=== PATIENT | male | born 1975 | race African-American/Black ===

== ENCOUNTER 2021-03-12 19:44 | Inpatient (IN) | payer MEDICAID, OTHER, SELFPAY ==
[~2021-03-12] VITALS: Ht 172.7 cm; Wt 72.1 kg
[2021-03-12 20:22] LABS: HEMATOCRIT 41.8 % (42.0-52.0); HEMOGLOBIN 13.4 g/dl (13.5-17.5); MEAN CORPUSCULAR HEMOGLOBIN 30.1 pg (27.0-33.0); MEAN CORPUSCULAR HGB CONC 32.1 g/dl (32.0-36.5); MEAN CORPUSCULAR VOLUME 93.9 fl (80.0-96.0); PLATELET COUNT, AUTOMATED 428 10^3/uL (150-450); RED BLOOD COUNT 4.45 10^6/uL (4.30-6.10); WHITE BLOOD COUNT 13.5 10^3/uL (4.0-10.0)
[2021-03-12 20:38] LABS: AMPHETAMINES LEVEL URINE NEGATIVE (NEGATIVE); BARBITURATES URINE NEGATIVE (NEGATIVE); BENZODIAZEPINES URINE NEGATIVE (NEGATIVE); CANNABINOIDS URINE POSITIVE (NEGATIVE); COCAINE METABOLITE URINE NEGATIVE (NEGATIVE); METHADONE URINE NEGATIVE (NEGATIVE); OPIATES URINE NEGATIVE (NEGATIVE); PHENCYCLIDINE URINE NEGATIVE (NEGATIVE)
[2021-03-12 21:11] LABS: ACETAMINOPHEN LEVEL < 2.0 UG/ML (10.0-30.0); ALBUMIN 3.4 GM/DL (3.2-5.2); ALT/SGPT 65 U/L (12-78); BILIRUBIN,DIRECT < 0.1 MG/DL (0.0-0.2); BILIRUBIN,TOTAL 0.2 MG/DL (0.2-1.0); BLOOD UREA NITROGEN 19 MG/DL (7-18); CALCIUM LEVEL 8.6 MG/DL (8.5-10.1); CARBON DIOXIDE LEVEL 28 MEQ/L (21-32); CHLORIDE LEVEL 107 MEQ/L (98-107); CREATININE FOR GFR 1.08 MG/DL (0.70-1.30); ETHYL ALCOHOL (ETHANOL) < 0.003 % (0.000-0.010); GLOMERULAR FILTRATION RATE > 60.0 (>60); GLUCOSE, FASTING 97 MG/DL (70-100); POTASSIUM SERUM 4.3 MEQ/L (3.5-5.1); SALICYLATE LEVEL 1.9 MG/DL (5.0-30.0); SODIUM LEVEL 139 MEQ/L (136-145); TOTAL PROTEIN 7.2 GM/DL (6.4-8.2)
[2021-03-13] MEDS ORDERED: diphenhydrAMINE 50MG CAP PO ONE
[2021-03-13] MEDS ORDERED: HOME MED LIST COMPLETE! XX SCH (00:15)
[2021-03-13] MEDS ORDERED: LORazepam 1 MG TAB PO STA (01:02)
[2021-03-13] MEDS ORDERED: NICOTINE 21MG/24HR 1 EA TRANSDERMAL TD PRN (06:55)
[2021-03-13] MEDS ORDERED: MAALOX 30 ML SUSP *UDC PO PRN (06:55)
[2021-03-13] MEDS ORDERED: traZODone 50 MG TAB PO PRN (06:55)
[2021-03-13] MEDS ORDERED: MOM 30ML SUSPENSION UDC PO PRN (06:55)
[2021-03-13 09:05] LABS: RSV AMPLIFICATION NEGATIVE (NEGATIVE)
[2021-03-13] MEDS ORDERED: haloperidoL 1 MG TAB PO PRN (10:45)
[2021-03-13] MEDS ORDERED: LORazepam 1 MG TAB PO PRN (10:45)
[2021-03-13 15:14] LABS: HEMOGLOBIN 13.2 g/dl (13.5-17.5); MEAN CORPUSCULAR HEMOGLOBIN 30.3 pg (27.0-33.0); MEAN CORPUSCULAR HGB CONC 32.2 g/dl (32.0-36.5); MEAN CORPUSCULAR VOLUME 94.3 fl (80.0-96.0); PLATELET COUNT, AUTOMATED 392 10^3/uL (150-450); RED BLOOD COUNT 4.35 10^6/uL (4.30-6.10); WHITE BLOOD COUNT 9.2 10^3/uL (4.0-10.0)
[2021-03-13 15:36] LABS: INR 1.03; PARTIAL THROMBOPLASTIN TIME 29.2 SECONDS (25.9-37.0); PROTHROMBIN TIME 13.9 SECONDS (12.7-14.5)
[2021-03-13 16:17] VITALS: BP 160/84
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
[2021-03-13] MEDS ORDERED: diphenhydrAMINE 25MG CAP PO ONE (17:00)
[2021-03-13] MEDS: diphenhydrAMINE 25MG CAP PO PRN (23:25)
[2021-03-13] MEDS: haloperidoL 1 MG TAB PO SCH (23:25)
[2021-03-14] MEDS: ACETAMINOPHEN TAB 650MG DOSE (2X325MG) PO PRN ×2 (00:35→16:19)
[2021-03-14 08:02] LABS: HEMATOCRIT 42.9 % (42.0-52.0); HEMOGLOBIN 13.8 g/dl (13.5-17.5); MEAN CORPUSCULAR HEMOGLOBIN 29.9 pg (27.0-33.0); MEAN CORPUSCULAR HGB CONC 32.2 g/dl (32.0-36.5); MEAN CORPUSCULAR VOLUME 93.1 fl (80.0-96.0); PLATELET COUNT, AUTOMATED 437 10^3/uL (150-450); RED BLOOD COUNT 4.61 10^6/uL (4.30-6.10); WHITE BLOOD COUNT 9.5 10^3/uL (4.0-10.0)
[2021-03-14] MEDS ORDERED: diphenhydrAMINE 50MG CAP PO PRN (14:05)
[2021-03-14 16:24] VITALS: BP 164/91
[2021-03-14] MEDS ORDERED: LORazepam 2 MG/ML VIAL IM STA ×3 (19:34→21:06)
[2021-03-14] MEDS ORDERED: HALOPERIDOL 5MG/ML VIAL (J1630 PER 1) IM STA (19:34)
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
[2021-03-14] MEDS: haloperidoL 1 MG TAB PO SCH (21:00)
[2021-03-14 21:45] VITALS: BP 150/70
[2021-03-14 22:00] VITALS: BP 150/75
--- NOTE | 2021-03-15 09:26 | MHHPE ---
[facility] HISTORY AND PHYSICAL DATE OF ADMISSION: 03/13/2021 VITAL SIGNS: Blood pressure 160/84, pulse 98, temperature 98.4. The patient was seen by video initially, I gathered history in the presence of staff and then was seen [id number] in the inpatient psychiatry unit. CHIEF COMPLAINT: Has been agitated. SUBJECTIVE: He is 45 years old. He is unable to provide a coherent history as he is quite tangential, in fact disorganized in his thoughts and has a hard time sticking to the topic at hand. Most of the history is obtained from the notes from the emergency room. He was brought to the emergency room by the police. He sadly has been off medicines, unclear which ones also how long. Note also says he was going to kill his brother and then the deputies, he was quite religiously preoccupied. Says there is no difficulty that he has with his emotions and that he does not have a psychiatric illness at least alludes to that and apparently has a history of schizophrenia. His brother had called the police as he had noted the patient was exhibiting increasing psychotic symptoms, auditory hallucinations, verbally aggressively, possibly visual hallucinations as well. The patient had apparently moved in with his brother three months ago, has had previous hospitalizations in [place] and was discharged from the hospital shortly before moving into the [facility]. Had been decompensating for the last couple of weeks and that he had received intramuscular Haldol every month, but has had no medicines since coming to this area and he was becoming increasingly grandiose, claiming he was God and that he saw his mother and his brother in his apartment and she was not there, was also noted to be talking to himself and not sleeping. Also made statements eluding to killing his brother. Apparently, he does well when he is taking his medicines. In the emergency room, he required frequent redirection. The patient indicates that he has been doing okay and that he uses Benadryl 75 mg at night. Suggests it helps him, but is vague on how it does that, but later suggests it may help calm things down and helps with sleep. He has been noted to be intrusive in the unit as well. PAST PSYCHIATRIC HISTORY: As indicated above. SUBSTANCE ABUSE HISTORY: Unclear, Toxicology was positive for cannabis. MEDICAL HISTORY: None as such. It should be noted under medical history, however, that he has been seen by a hospitalist and the patient had complained about blood per rectum and a rectal examination was deferred. A complete blood count will be repeated. There is no decrease in hemoglobin. SOCIAL HISTORY: As indicated above. He has been staying recently with his brother. MENTAL STATUS EXAMINATION: He is with fair hygiene, has long hair and cooperative, no agitation when I saw him, no psychomotor retardation and displays disorganized speech, tends to ramble with possible loose associations, there is no tolerance, but the statements are not in keeping with what is being talked about. Denies suicidal thoughts or intents. Denies homicidal ideas or intents. Guarded on certain matters and appears deluded, paranoid, no fluctuation of consciousness, intellect average. He is alert, oriented to time, place and person. Judgment and insight are quite compromised. ASSESSMENT: 1. Schizophrenia. 2. Rule out schizoaffective disorder, bipolar type. Recent history of not adhering to recommendations. The patient has acute psychosis with disordered thoughts, delusions of persecution, very poor judgment and insight. PLAN: He is admitted to inpatient psychiatric unit, placed on relevant precautions. Look at obtaining further collateral information and possible old records. Will suggest that he be given Benadryl at 75 mg at night and 25 mg to 50 mg in the daytime as needed for anxiety, and this is the only medication that he accepts at present, but we offered an antipsychotic as well, but he declined it at present and will look at placing him on Haldol, will schedule as well, but may need to look at using an atypical antipsychotic and consider using a long acting injectable as one of the atypical antipsychotics, rather than Haldol which he has used in the past. This may be decided in view of the previous responses, however, to be intramuscular Haldol. Receive medicine consult as indicated and they will continue monitoring for blood in stools and help is appreciated. He will be discharged to follow up once he is stable. I would anticipate a 5 to 7 day stay. The assessment took 45 minutes. KAREN
[2021-03-15] MEDS: diphenhydrAMINE 50MG CAP PO SCH ×2 (10:24→16:16)
[2021-03-15] MEDS ORDERED: OLANZapine 5 MG TAB PO PRN (10:50)
[2021-03-15 11:28] LABS: HEPATITIS B CORE ANTIBODY IGM NEGATIVE (NEGATIVE); HEPATITIS B SURFACE ANTIGEN NEGATIVE (NEGATIVE); HEPATITIS C VIRUS ABY INDEX < 0.0 INDEX (<0.8); HIV 1&2 SCREEN CENTAUR NEGATIVE (NEGATIVE)
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
--- NOTE | 2021-03-15 11:56 | MHIPNPDOC ---
[facility] Progress Note Progress Note DATE OF SERVICE: 03/15/21 HISTORY: Patient is a 45-year-old -[place] man with a history of schizophrenia who presents to the ED with police due to acute disorganization in context of noncompliance with medications and outpatient appointments. Brother called 911 and he was brought in to the hospital. Interval: On interview patient is quite paranoid, states he is being monitored 24/ on cameras, has bizarre delusions of computers being on his face, he is tangential and states it is forensics in my blood, all these optics answers are disorganized I do not have mental health and I know that olanzapine helps me, I can prove what is going on using technology. Was seen in the social milieu pointing out signs that are not up-to-date reportedly, despite indications noted that they were. Also was asking to see his files immediately and that the medications are put in as he does not believe they are kept anywhere in the computer and will be forgotten. Patient is reassured of safe environment, agrees to start olanzapine 10 mg nightly, and have as needed olanzapine for anxiety, agitation or psychotic symptoms which are worsening. Has to have Benadryl as he reports this is helped him in the past and does not have allergy, 50 mg twice daily for anxiety. VITAL SIGNS: See below. NEW TEST RESULTS: CBC 1017 unremarkable, U tox positive for cannabinoids CURRENT MEDICATIONS: See below. MENTAL STATUS EXAMINATION: Patient is a 45-year old -[place] male, who is in no acute distress, has dreadlocks, balding, appears older than stated age, intense eye contact and a ppears to be responding to internal stimuli, somewhat disheveled Speech: Is disordered Language skills are poor. Thought processes including: Disorganized, internally preoccupied. Thought content: Denies suicidal ideation, intent or plan. Denies homicidal ideation, intent or plan, preoccupied with computers and technology proving that he has no mental disorder. Abstract reasoning, and computation: Poor. Description of associations: Poor. Description of abnormal or psychotic thoughts: Bizarre delusions, paranoia, denies hallucinations, but appears internally preoccupied Judgment: Poor. Insight: Poor. Orientation: To person and place. Recent and remote memory: Poor. Attention span and concentration: Poor. Language: Luxembourgish. Fund of knowledge: below average based on interview Mood: "It's all recorded in the camera" affect: Mildly anxious, disorganized, internally preoccupied, grossly psychotic, inappropriate DIAGNOSES: 1. Schizophrenia per history 2. Cannabis use disorder per history 3. Tobacco use disorder per history, supplemented with nicotine patch ASSESSMENT: Patient is grossly and pleasantly disorganized, nonaggressive, was offered a dose of olanzapine once and refused, agreeable to taking olanzapine at night due to concern of oversedation daytime, despite psychotic symptoms. Needs extended stay for acute stabilization of psychosis. Aims scoring is 0 based on interview. Does report that Haldol in the past has caused tight muscles and is poorly tolerated. MANAGEMENT PLAN: Start olanzapine 10 mg nightly, DC Haldol 3 mg nightly, refusing, has as needed olanzapine for agitation, moderate to severe anxiety, psychotic symptoms, refuses Haldol TIME SPENT: 25 minutes. Vital Signs Vital Signs Date Time Temp Pulse Resp B/P (MAP) Pulse Ox O2 Delivery O2 Flow Rate FiO2 03/14/21 22:00 14 150/75 99 Room Air 03/14/21 16:24 97.5 99 Laboratory Data 24H Labs Laboratory Tests 2 03/15/21 08:31: Hepatitis A IgM Antibody NEGATIVE, Hepatitis B Surface Antigen NEGATIVE, Hepatitis B Core IgM Antibody NEGATIVE, Hepatitis C Antibody Index < 0.0, HIV Antigen/Antibody Combo Qual NEGATIVE Current Medications Current Medications Medications (Trade) Dose Ordered Sig/Selene Route PRN Reason Start Time Stop Time Status Last Admin Dose Admin Acetaminophen (Tylenol Tab) 650 mg Q6HP PRN PO HEADACHE or MILD DISCOMFORT 03/13/21 06:55 03/14/21 16:19 Al Hydrox/Mg Hydrox/Simethicone (Mylanta) 30 ml Q4HP PRN PO HEARTBURN/INDIGESTION 03/13/21 06:55 Diphenhydramine HCl (Benadryl) 50 mg BID@0900,1600 PO 03/15/21 09:00 03/15/21 10:24 Diphenhydramine HCl (Benadryl) 50 mg DAILYPRN PRN PO ANXIETY 03/14/21 14:05 03/15/21 10:12 DC 03/14/21 14:47 Diphenhydramine HCl (Benadryl) 75 mg QHSP PRN PO ANXIETY 03/13/21 18:55 03/13/21 23:25 Haloperidol (Haldol) 2 mg Q4HP PRN PO ANXIETY/AGITATION 03/13/21 06:55 03/13/21 10:45 DC Haloperidol (Haldol) 3 mg Q4HP PRN PO ANXIETY/AGITATION 03/13/21 10:45 Cancel Haloperidol (Haldol) 3 mg QHS PO 03/13/21 21:00 Haloperidol (Haldol) 5 mg STAT STAT IM 03/14/21 19:34 03/14/21 19:41 DC 03/14/21 19:54 Home Med (Home Med List Complete!) ASDIRECTED XX 03/13/21 00:15 03/13/21 00:27 DC Lorazepam (Ativan) 1 mg Q4HP PRN PO ANXIETY/Agitation 03/13/21 10:45 Lorazepam (Ativan) 1 mg STAT STAT IM 03/14/21 19:34 03/14/21 19:41 DC 03/14/21 19:54 Lorazepam (Ativan) 1 mg STAT STAT IM 03/14/21 19:34 03/14/21 19:41 DC Lorazepam (Ativan) 1 mg STAT STAT IM 03/14/21 21:06 03/14/21 21:07 DC 03/14/21 21:14 Lorazepam (Ativan) 1 mg STAT STAT PO 03/13/21 01:02 03/13/21 01:03 DC 03/13/21 01:02 Magnesium Hydroxide (Milk Of Magnesia) 30 ml DAILYPRN PRN PO CONSTIPATION 03/13/21 06:55 Nicotine (Nicoderm Cq 21mg) 1 patch DAILY PRN TD nicotine withdrawal 03/13/21 06:55 Olanzapine (ZyPREXA) 5 mg Q4HP PRN PO AGITATION 03/15/21 10:50 Olanzapine (ZyPREXA) 10 mg QHS PO 03/15/21 21:00 Trazodone HCl (Desyrel) 50 mg QHSP PRN PO INSOMNIA 03/13/21 06:55 Allergies Coded Allergies: benztropine (Verified Allergy, Unknown, unk, 03/12/21) risperidone (Verified Allergy, Unknown, unk, 03/12/21) LUCY FLOWER MD Mar 15, 2021 11:56
--- NOTE | 2021-03-15 16:59 | MHIPN ---
[facility] PROGRESS NOTE DATE: 03/14/2021 VITAL SIGNS: Blood pressure 164/91, pulse 99, temperature 97.5. This is a video assessment. She is in the inpatient psychiatry unit, being seen in the presence of staff. I am at home. CHIEF COMPLAINT: Says feels good. SUBJECTIVE: Seen for followup. Indicates feels good. Then suggests that he is here only for the weekend and makes statements which are not related to the topic at hand and becomes quite tangential in his speech. He does say he slept. Took Benadryl. Is focused on daytime Benadryl to ease his anxiety. Gets upset when mention is made of his using Haldol for treatment, intramuscular, and denies that. Also declines us speaking with his brother. MENTAL STATUS EXAMINATION: Cooperative, neat but easily irritated. Displays mild agitation. No psychomotor retardation. Has thought disorder. Disorganized and tangential speech. Mildly labile affect. Delusions. Cognition grossly intact. Judgment and insight are compromised. ASSESSMENT: Schizophrenia. PLAN: Continue current care. Attempt at obtaining collateral information, but I would suggest he is given Benadryl, including daytime at 50 mg once a day as needed for anxiety. This is in addition to the 75 mg at night, and should he feel less anxious, may be more amenable to persuasion in terms of engaging in treatment, including using an antipsychotic. Would suggest obtaining old records with his permission. This may take awhile. Further recommendations will be made depending on the clinical picture when he sees the assigned clinicians tomorrow. Meanwhile, he is to be encouraged to participate as tolerated in the activities in the unit.
[2021-03-15 17:44] VITALS: BP 176/100
[2021-03-15] MEDS: diphenhydrAMINE 25MG CAP PO PRN (20:41)
[2021-03-15] MEDS ORDERED: OLANZapine 10 MG TAB PO SCH (21:00)
[2021-03-15] MEDS: ACETAMINOPHEN TAB 650MG DOSE (2X325MG) PO PRN (21:27)
[2021-03-16 07:04] VITALS: BP 136/97
[2021-03-16] MEDS: diphenhydrAMINE 50MG CAP PO SCH ×2 (07:55→15:48)
--- NOTE | 2021-03-16 13:06 | MHIPNPDOC ---
[facility] Progress Note Progress Note DATE OF SERVICE: 03/16/21 HISTORY: Patient is a 45-year-old -[place] man with a history of schizophrenia who presents to the ED with police due to acute disorganization in context of noncompliance with medications and outpatient appointments. Brother called 911 and he was brought in to the hospital. Interval: Patient was seen today, has been going to some groups. Reports there are conspiracies against him that he needs to be released and that his magnetic energy field around his head was normal and that he needs to wear a hat to stabilize this. States he is already received a full copy of his medications and that he is going to court because he never authorized admission or his medications, discussed several treatment options with him including alternatives which he refused stating he wants to continue with olanzapine. Has been taking medications per chart review. VITAL SIGNS: See below. NEW TEST RESULTS: None CURRENT MEDICATIONS: See below. MENTAL STATUS EXAMINATION: Patient is a 45-year old -[place] male, who is in no acute distress, has dreadlocks, balding, appears older than stated age, intense eye contact and appears to be responding to internal stimuli, somewhat disheveled, walking in the hallways. Speech: Is disordered Language skills are poor. Thought processes including: Disorganized, internally preoccupied, paranoid. Thought content: Denies suicidal ideation, intent or plan. Denies homicidal ideation, intent or plan, preoccupied with computers and technology proving that he has no mental disorder. Abstract reasoning, and computation: Poor. Desc ription of associations: Poor. Description of abnormal or psychotic thoughts: Bizarre delusions, paranoia, denies hallucinations, but continues to be internally preoccupied Judgment: Poor. Insight: Poor. Orientation: To person and place. Recent and remote memory: Poor. Attention span and concentration: Poor. Language: Hebrew. Fund of knowledge: below average based on interview Mood: "Something of nicole" affect: Grossly psychotic, internally preoccupied, disorganized, inappropriate DIAGNOSES: 1. Schizophrenia per history 2. Cannabis use disorder per history 3. Tobacco use disorder per history, supplemented with nicotine patch ASSESSMENT: Patient is grossly and pleasantly disorganized, nonaggressive, was offered a dose of olanzapine once and refused, agreeable to taking olanzapine at night due to concern of oversedation daytime, despite psychotic symptoms. Needs extended stay for acute stabilization of psychosis. Aims scoring is 0 based on interview. Does report that Haldol in the past has caused tight muscles and is poorly tolerated. No EPS symptoms, noted on interview, aims scoring 0. MANAGEMENT PLAN: Increase olanzapine to 20 mg nightly, refusing other medication options including Haldol, mood stabilizers for anxiety and agitation. TIME SPENT: 25 minutes. Vital Signs Vital Signs Date Time Temp Pulse Resp B/P (MAP) Pulse Ox O2 Delivery O2 Flow Rate FiO2 03/16/21 07:04 97.7 101 18 136/97 (110) 98 Room Air Current Medications Current Medications Medications (Trade) Dose Ordered Sig/Selene Route PRN Reason Start Time Stop Time Status Last Admin Dose Admin Acetaminophen (Tylenol Tab) 650 mg Q6HP PRN PO HEADACHE or MILD DISCOMFORT 03/13/21 06:55 03/15/21 21:27 Al Hydrox/Mg Hydrox/Simethicone (Mylanta) 30 ml Q4HP PRN PO HEARTBURN/INDIGESTION 03/13/21 06:55 Amlodipine Besylate (Norvasc) 2.5 mg QHS PO 03/15/21 18:20 Diphenhydramine HCl (Benadryl) 50 mg BID@0900,1600 PO 03/15/21 09:00 03/16/21 07:55 Diphenhydramine HCl (Benadryl) 50 mg DAILYPRN PRN PO ANXIETY 03/14/21 14:05 03/15/21 10:12 DC 03/14/21 14:47 Diphenhydramine HCl (Benadryl) 75 mg QHSP PRN PO ANXIETY 03/13/21 18:55 03/15/21 20:41 Haloperidol (Haldol) 2 mg Q4HP PRN PO ANXIETY/AGITATION 03/13/21 06:55 03/13/21 10:45 DC Haloperidol (Haldol) 3 mg Q4HP PRN PO ANXIETY/AGITATION 03/13/21 10:45 Cancel Haloperidol (Haldol) 3 mg QHS PO 03/13/21 21:00 03/15/21 11:57 DC Haloperidol (Haldol) 5 mg STAT STAT IM 03/14/21 19:34 03/14/21 19:41 DC 03/14/21 19:54 Home Med (Home Med List Complete!) ASDIRECTED XX 03/13/21 00:15 03/13/21 00:27 DC Lorazepam (Ativan) 1 mg Q4HP PRN PO ANXIETY/Agitation 03/13/21 10:45 Lorazepam (Ativan) 1 mg STAT STAT IM 03/14/21 19:34 03/14/21 19:41 DC 03/14/21 19:54 Lorazepam (Ativan) 1 mg STAT STAT IM 03/14/21 19:34 03/14/21 19:41 DC Lorazepam (Ativan) 1 mg STAT STAT IM 03/14/21 21:06 03/14/21 21:07 DC 03/14/21 21:14 Lorazepam (Ativan) 1 mg STAT STAT PO 03/13/21 01:02 03/13/21 01:03 DC 03/13/21 01:02 Magnesium Hydroxide (Milk Of Magnesia) 30 ml DAILYPRN PRN PO CONSTIPATION 03/13/21 06:55 Nicotine (Nicoderm Cq 21mg) 1 patch DAILY PRN TD nicotine withdrawal 03/13/21 06:55 Olanzapine (ZyPREXA) 5 mg Q4HP PRN PO AGITATION 03/15/21 10:50 Olanzapine (ZyPREXA) 10 mg QHS PO 03/15/21 21:00 03/15/21 20:41 Trazodone HCl (Desyrel) 50 mg QHSP PRN PO INSOMNIA 03/13/21 06:55 Allergies Coded Allergies: benztropine (Verified Allergy, Unknown, unk, 03/12/21) risperidone (Verified Allergy, Unknown, unk, 03/12/21) LUCY FLOWER MD Mar 16, 2021 13:06
[2021-03-16] MEDS: diphenhydrAMINE 25MG CAP PO PRN (20:36)
[2021-03-16] MEDS: OLANZapine 10 MG TAB PO SCH ×2 (20:40→21:31)
[2021-03-17] MEDS: diphenhydrAMINE 50MG CAP PO SCH ×2 (08:25→15:26)
[2021-03-17 11:47] LABS: HEMATOCRIT 43.8 % (42.0-52.0); MEAN CORPUSCULAR HEMOGLOBIN 30.4 pg (27.0-33.0); PLATELET COUNT, AUTOMATED 468 10^3/uL (150-450); RED BLOOD COUNT 4.61 10^6/uL (4.30-6.10); WHITE BLOOD COUNT 11.8 10^3/uL (4.0-10.0)
[2021-03-17 12:06] LABS: BLOOD UREA NITROGEN 10 MG/DL (7-18); CALCIUM LEVEL 9.3 MG/DL (8.5-10.1); CARBON DIOXIDE LEVEL 30 MEQ/L (21-32); CHLORIDE LEVEL 106 MEQ/L (98-107); CREATININE FOR GFR 1.09 MG/DL (0.70-1.30); GLOMERULAR FILTRATION RATE > 60.0 (>60); GLUCOSE, FASTING 89 MG/DL (70-100); POTASSIUM SERUM 5.1 MEQ/L (3.5-5.1); SODIUM LEVEL 139 MEQ/L (136-145)
--- NOTE | 2021-03-17 14:09 | MHIPNPDOC ---
[facility] Progress Note Progress Note DATE OF SERVICE: 03/17/21 HISTORY: Patient is a 45-year-old -[place]ian man with a history of schizophrenia who presents to the ED with police due to acute disorganization in context of noncompliance with medications and outpatient appointments. Brother called 911 and he was brought in to the hospital. Interval: Patient was seen today, has been going to some groups. Continues to have bizarre delusions of ECT machines and government projects taking over, shows me how he is technology all around his head. Was frustrated that his olanzapine dose was increased, stating he does not need it despite bizarre disorganized behavior. Reports she will continue the medication and denies side effects, no acute physical complaints, so far agreeable to testing by medical team for possible blood in the stool. VITAL SIGNS: See below. NEW TEST RESULTS: See below, elevated white count and platelet count of 400s, being followed by hospitalist team CURRENT MEDICATIONS: See below. MENTAL STATUS EXAMINATION: Patient is a 45-year old -[place]ian male, who is in no acute distress, has dreadlocks, balding, appears older than stated age, intense eye contact and appears to be responding to internal stimuli, somewhat disheveled, walking in the hallways. Speech: Is disordered Language skills are poor. Thought processes including: Disorganized, internally preoccupied, paranoid. Thought content: Denies suicidal ideation, intent or plan. Denies homicidal ideation, intent or plan, preoccupied with technology being used by the government to control him. abstract reasoning, and computation: Poor. Description of associations: Poor. Description of abnormal or psychotic thoughts: Bizarre delusions, paranoia, appears to be seeing auditory visual hallucination, but continues to be internally preoccupied Judgment: Poor. Insight: Poor. Orientation: To person and place. Recent and remote memory: Poor. Attention span and concentration: Poor. Language: Yoruba. Fund of knowledge: below average based on interview Mood: "You know how it is" affect: Grossly psychotic, delusional, internally preoccupied, inappropriate DIAGNOSES: 1. Schizophrenia per history 2. Cannabis use disorder per history 3. Tobacco use disorder per history, supplemented with nicotine patch ASSESSMENT: Patient continues to be grossly psychotic and disorganized, is talking to himself in his room and has bizarre delusions of implants and government involved ECT machines, states people are using his blood to control him. Patient requires consistent redirection due to leaving isolation room in context of possible covert exposure. His auditory visual hallucinations. Continues to require inpatient mission due to need for acute stabilization of psychotic symptoms. MANAGEMENT PLAN: Continue olanzapine to 20 mg nightly, will assess if symptoms improve, if not we will look at adjunctive medications,refusing other medication options including Haldol, mood stabilizers for anxiety and agitation. Nursing noticed blood in stool when going to the bathroom, hospital team aware and ordered for occult blood sample, BMP, CBC. Patient placed on contact precautio ns due to possible risk of covert exposure, this is despite a negative test on admission TIME SPENT: 20 minutes. Vital Signs Vital Signs Date Time Temp Pulse Resp B/P (MAP) Pulse Ox O2 Delivery O2 Flow Rate FiO2 03/16/21 07:04 97.7 101 18 136/97 (110) 98 Room Air Laboratory Data 24H Labs Laboratory Tests 2 03/17/21 11:22: Reticulocyte # (auto) 72.4, Nucleated Red Blood Cells % (auto) 0.0, Percent Reticulocyte Count 1.6H, Reticulocyte Hemoglobin Equivalent 33.3, Anion Gap 3L, Glomerular Filtration Rate > 60.0, Calcium Level 9.3 CBC/BMP Laboratory Tests 03/17/21 11:22 Current Medications Current Medications Medications (Trade) Dose Ordered Sig/Selene Route PRN Reason Start Time Stop Time Status Last Admin Dose Admin Acetaminophen (Tylenol Tab) 650 mg Q6HP PRN PO HEADACHE or MILD DISCOMFORT 03/13/21 06:55 03/15/21 21:27 Al Hydrox/Mg Hydrox/Simethicone (Mylanta) 30 ml Q4HP PRN PO HEARTBURN/INDIGESTION 03/13/21 06:55 Amlodipine Besylate (Norvasc) 2.5 mg QHS PO 03/15/21 18:20 Diphenhydramine HCl (Benadryl) 50 mg BID@0900,1600 PO 03/15/21 09:00 03/17/21 08:25 Diphenhydramine HCl (Benadryl) 50 mg DAILYPRN PRN PO ANXIETY 03/14/21 14:05 03/15/21 10:12 DC 03/14/21 14:47 Diphenhydramine HCl (Benadryl) 75 mg QHSP PRN PO ANXIETY 03/13/21 18:55 03/16/21 20:36 Haloperidol (Haldol) 2 mg Q4HP PRN PO ANXIETY/AGITATION 03/13/21 06:55 03/13/21 10:45 DC Haloperidol (Haldol) 3 mg Q4HP PRN PO ANXIETY/AGITATION 03/13/21 10:45 Cancel Haloperidol (Haldol) 3 mg QHS PO 03/13/21 21:00 03/15/21 11:57 DC Haloperidol (Haldol) 5 mg STAT STAT IM 03/14/21 19:34 03/14/21 19:41 DC 03/14/21 19:54 Home Med (Home Med List Complete!) ASDIRECTED XX 03/13/21 00:15 03/13/21 00:27 DC Lorazepam (Ativan) 1 mg Q4HP PRN PO ANXIETY/Agitation 03/13/21 10:45 Lorazepam (Ativan) 1 mg STAT STAT IM 03/14/21 19:34 03/14/21 19:41 DC 03/14/21 19:54 Lorazepam (Ativan) 1 mg STAT STAT IM 03/14/21 19:34 03/14/21 19:41 DC Lorazepam (Ativan) 1 mg STAT STAT IM 03/14/21 21:06 03/14/21 21:07 DC 03/14/21 21:14 Lorazepam (Ativan) 1 mg STAT STAT PO 03/13/21 01:02 03/13/21 01:03 DC 03/13/21 01:02 Magnesium Hydroxide (Milk Of Magnesia) 30 ml DAILYPRN PRN PO CONSTIPATION 03/13/21 06:55 Nicotine (Nicoderm Cq 21mg) 1 patch DAILY PRN TD nicotine withdrawal 03/13/21 06:55 Olanzapine (ZyPREXA) 5 mg Q4HP PRN PO AGITATION 03/15/21 10:50 Olanzapine (ZyPREXA) 10 mg QHS PO 03/15/21 21:00 03/16/21 13:06 DC 03/15/21 20:41 Olanzapine (ZyPREXA) 20 mg QHS PO 03/16/21 21:00 03/16/21 21:31 Trazodone HCl (Desyrel) 50 mg QHSP PRN PO INSOMNIA 03/13/21 06:55 Allergies Coded Allergies: benztropine (Verified Allergy, Unknown, unk, 03/12/21) risperidone (Verified Allergy, Unknown, unk, 03/12/21) LUCY FLOWER MD Mar 17, 2021 14:09
[2021-03-17] MEDS: diphenhydrAMINE 25MG CAP PO PRN (20:26)
[2021-03-17] MEDS: OLANZapine 10 MG TAB PO SCH (20:26)
--- NOTE | 2021-03-17 20:55 | IPNPDOC ---
Subjective Date Seen The patient was seen on 03/17/21. Subjective Chief Complaint/HPI Mr. Jhaveri is a 45-year-old male who was in the inpatient mental health unit for schizophrenia. We were asked to see the patient again because of bright red blood per rectum. Per nurse, patient had a bowel movement with solid stool and bright red blood. Today we ordered for CBC, which was stable and better than admission. I attempted to see patient. He denied any lightheadedness or dizziness, chest pain, or shortness of breath. He kept telling me that someone had contaminated his food and thought that this was causing the bright red blood per rectum. When I started talking about hemorrhoids, he is very agitated and upset. He told me to get out of the room. He was very verbally aggressive, and at that time, it was not safe to try to attempt a rectal exam. I was not able to perform a physical exam due to patient's refusal. Otherwise, patient is on Covid precautions as he was exposed to person positive for Covid. Objective Physical Examination Other physical findings Patient refused physical exam Assessment /Plan Assessment Mr. Jhaveri is a 45-year-old male who was in the inpatient mental health unit for schizophrenia. We were requested to see patient, patient was verbally aggressive. He refused exam today. Patient has been asymptomatic and hemoglobin better than prior. Unlikely to be a rapid bleed or a life- threatening bleed. Okay to monitor at this time. Plan/VTE VTE Prophylaxis Ordered?: No (Ambulatory) Plan 1. Schizophrenia Patient is actively psychotic and paranoid. Still thinks that someone is putting something in his food as causing his bright red blood per rectum Currently being managed in the inpatient mental health unit 2. Bright red blood per rectum Patient asymptomatic Hemoglobin better than prior Unlikely to be life-threatening bleed or rapid bleed Okay to monitor at this time When patient is more mentally stable, can consider reevaluation of bright red blood per rectum. This may also be done outpatient. Thank you for consulting us. We will sign off at this time. If there is any further questions or concerns, please do not hesitate to reconsult us. VS, I&O, 24H, Fishbone Vital Signs/I&O Vital Signs Date Time Temp Pulse Resp B/P (MAP) Pulse Ox O2 Delivery O2 Flow Rate FiO2 03/16/21 07:04 97.7 101 18 136/97 (110) 98 Room Air Laboratory Data 24H LABS Laboratory Tests 2 03/17/21 11:22: Reticulocyte # (auto) 72.4, Nucleated Red Blood Cells % (auto) 0.0, Percent Reticulocyte Count 1.6H, Reticulocyte Hemoglobin Equivalent 33.3, Anion Gap 3L, Glomerular Filtration Rate > 60.0, Calcium Level 9.3 CBC/BMP Laboratory Tests 03/17/21 11:22 Microbiology Microbiology 03/17/21 Stool Occult Blood (SAM) - Final, Complete MICHELL GRADY DO Mar 17, 2021 20:55
[2021-03-18] MEDS: diphenhydrAMINE 50MG CAP PO SCH ×2 (09:10→15:23)
--- NOTE | 2021-03-18 11:58 | MHIPNPDOC ---
[facility] Progress Note Progress Note DATE OF SERVICE: 03/18/21 HISTORY: Patient is a 45-year-old -[place] man with a history of schizophrenia who presents to the ED with police due to acute disorganization in context of noncompliance with medications and outpatient appointments. Brother called 911 and he was brought in to the hospital. Interval: Patient not going to groups today, and in contact isolation. He was more redirectable, less disorganized, shows me some paper that he says he collected some blood with from the doctors, explained the need to take a stool sample to assess for blood in the stool. States people are against him and flush the toilet against his well when he was sleeping. Continues to have some paranoia, talking less about computers taking over his mind and is consistent with his medications, denies any acute physical complaints. Has medication side effects. VITAL SIGNS: See below. NEW TEST RESULTS: Stool sample March 17, 2021 negative for occult blood CURRENT MEDICATIONS: See below. MENTAL STATUS EXAMINATION: Patient is a 45-year old -[place] male, who is in no acute distress, has dreadlocks, balding, appears older than stated age, intense eye contact and appears to be responding to internal stimuli, somewhat disheveled, walking in the hallways. Speech: Is disordered Language skills are poor. Thought processes including: Continues to be disorganized, internally preoccupied, less paranoid. Thought content: Denies suicidal ideation, intent or plan. Denies homicidal ideation, intent or plan, preoccupied with technology being used by the government to control him. abstract reasoning, and computation: Poor. Description of associations: Poor. Description of abnormal or psychotic thoughts: Bizarre delusions, paranoia, appears to be seeing auditory visual hallucination, but continues to be internally preoccupied Judgment: Poor. Insight: Poor. Orientation: To person and place. Recent and remote memory: Poor. Attention span and concentration: Poor. Language: Angolan. Fund of knowledge: below average based on interview Mood: "There tainting my blood" affect: Grossly psychotic, delusional, less internally preoccupied, inappropriate, less paranoid DIAGNOSES: 1. Schizophrenia per history 2. Cannabis use disorder per history 3. Tobacco use disorder per history, supplemented with nicotine patch ASSESSMENT: Was seen by hospitalist team, stool occult blood - March 17, 2021, hospitalist team recommend reevaluation when psychotic symptoms subside or possible outpatient management as unlikely high risk bleed. Patient continues to be grossly psychotic, somewhat improved from previous days with less paranoia, less disorganized and calmer on approach. MANAGEMENT PLAN: Continue olanzapine to 20 mg nightly, continues to make mild progress we will further assess tomorrow for any medication changes,refusing other medication options including Haldol, mood stabilizers for anxiety and agitation. TIME SPENT: 15 minutes. Vital Signs Vital Signs Date Time Temp Pulse Resp B/P (MAP) Pulse Ox O2 Delivery O2 Flow Rate FiO2 03/16/21 07:04 97.7 101 18 136/97 (110) 98 Room Air Current Medications Current Medications Medications (Trade) Dose Ordered Sig/Selene Route PRN Reason Start Time Stop Time Status Last Admin Dose Admin Acetaminophen (Tylenol Tab) 650 mg Q6HP PRN PO HEADACHE or MILD DISCOMFORT 03/13/21 06:55 03/15/21 21:27 Al Hydrox/Mg Hydrox/Simethicone (Mylanta) 30 ml Q4HP PRN PO HEARTBURN/INDIGESTION 03/13/21 06:55 Amlodipine Besylate (Norvasc) 2.5 mg QHS PO 03/15/21 18:20 Diphenhydramine HCl (Benadryl) 50 mg BID@0900,1600 PO 03/15/21 09:00 03/18/21 09:10 Diphenhydramine HCl (Benadryl) 50 mg DAILYPRN PRN PO ANXIETY 03/14/21 14:05 03/15/21 10:12 DC 03/14/21 14:47 Diphenhydramine HCl (Benadryl) 75 mg QHSP PRN PO ANXIETY 03/13/21 18:55 03/17/21 20:26 Haloperidol (Haldol) 2 mg Q4HP PRN PO ANXIETY/AGITATION 03/13/21 06:55 03/13/21 10:45 DC Haloperidol (Haldol) 3 mg Q4HP PRN PO ANXIETY/AGITATION 03/13/21 10:45 Cancel Haloperidol (Haldol) 3 mg QHS PO 03/13/21 21:00 03/15/21 11:57 DC Haloperidol (Haldol) 5 mg STAT STAT IM 03/14/21 19:34 03/14/21 19:41 DC 03/14/21 19:54 Home Med (Home Med List Complete!) ASDIRECTED XX 03/13/21 00:15 03/13/21 00:27 DC Lorazepam (Ativan) 1 mg Q4HP PRN PO ANXIETY/Agitation 03/13/21 10:45 Lorazepam (Ativan) 1 mg STAT STAT IM 03/14/21 19:34 03/14/21 19:41 DC 03/14/21 19:54 Lorazepam (Ativan) 1 mg STAT STAT IM 03/14/21 19:34 03/14/21 19:41 DC Lorazepam (Ativan) 1 mg STAT STAT IM 03/14/21 21:06 03/14/21 21:07 DC 03/14/21 21:14 Lorazepam (Ativan) 1 mg STAT STAT PO 03/13/21 01:02 03/13/21 01:03 DC 03/13/21 01:02 Magnesium Hydroxide (Milk Of Magnesia) 30 ml DAILYPRN PRN PO CONSTIPATION 03/13/21 06:55 Nicotine (Nicoderm Cq 21mg) 1 patch DAILY PRN TD nicotine withdrawal 03/13/21 06:55 Olanzapine (ZyPREXA) 5 mg Q4HP PRN PO AGITATION 03/15/21 10:50 Olanzapine (ZyPREXA) 10 mg QHS PO 03/15/21 21:00 03/16/21 13:06 DC 03/15/21 20:41 Olanzapine (ZyPREXA) 20 mg QHS PO 03/16/21 21:00 03/17/21 20:26 Trazodone HCl (Desyrel) 50 mg QHSP PRN PO INSOMNIA 03/13/21 06:55 Allergies Coded Allergies: benztropine (Verified Allergy, Unknown, unk, 03/12/21) risperidone (Verified Allergy, Unknown, unk, 03/12/21) LUCY FLOWER MD Mar 18, 2021 11:58
[2021-03-18] MEDS: diphenhydrAMINE 25MG CAP PO PRN (20:10)
[2021-03-18] MEDS: OLANZapine 10 MG TAB PO SCH (20:10)
[2021-03-19] MEDS: diphenhydrAMINE 50MG CAP PO SCH ×2 (09:33→15:21)
--- NOTE | 2021-03-19 11:46 | MHIPNPDOC ---
[facility] Progress Note Progress Note DATE OF SERVICE: 03/19/21 HISTORY: Patient is a 45-year-old -Slov[place] man with a history of schizophrenia who presents to the ED with police due to acute disorganization in context of noncompliance with medications and outpatient appointments. Brother called 911 and he was brought in to the hospital. Interval: Patient continues to be isolated with contact precautions due to possible court exposure, continues to be grossly psychotic with paranoid delusions, less paranoid than previous days continues to be likely be responding to internal stimuli with visual and auditory hallucinations. Agrees to make medication changes to control psychotic symptoms. States he thinks injected. Blood into an orange and that there was blood on his food tray because it was not sealed, has concerns people are tampering with his food. VITAL SIGNS: See below. NEW TEST RESULTS: Stool sample March 17, 2021 negative for occult blood CURRENT MEDICATIONS: See below. MENTAL STATUS EXAMINATION: Patient is a 45-year old -Slov[place] male, who is in no acute distress, has dreadlocks, balding, appears older than stated age, intense eye contact and appears to be responding to internal stimuli, somewhat disheveled, walking in the hallways. Speech: Is disordered, spontaneous Language skills are poor. Thought processes including: Continues to be disorganized, internally preoccupied, less paranoid. Thought content: Denies suicidal ideation, intent or plan. Denies homicidal ideation, intent or plan, preoccupied with technology being used by the government to control him. abstract reasoning, and computation: Poor. Description of associations: Poor. Description of abnormal or psychotic thoughts: Bizarre delusions, paranoia, appears to be seeing auditory visual hallucination, but continues to be internally preoccupied Judgment: Poor. Insight: Poor. Orientation: To person and place. Recent and remote memory: Poor. Attention span and concentration: Poor. Language: Albanian. Fund of knowledge: below average based on interview Mood: "Good Sir" affect: Grossly psychotic, delusional, less internally pr eoccupied, inappropriate, less paranoid DIAGNOSES: 1. Schizophrenia per history 2. Cannabis use disorder per history 3. Tobacco use disorder per history, supplemented with nicotine patch ASSESSMENT: Patient continues to limited progress on the unit with regards to psychotic symptoms, appears less agitated and irritable, less paranoid, but continues to have delusions that people are poisoning his food or that there is blood in his food, patient was agreeable to making medication changes to address psychotic symptoms. MANAGEMENT PLAN: Cross taper olanzapine for haldol, decrease olanzapine to 10 mg and start haldol 5 mg qhs, continues to make mild progress we will further assess tomorrow for any medication changes,refusing other medication options including Haldol, mood stabilizers for anxiety and agitation. TIME SPENT: 20 minutes. Vital Signs Vital Signs Date Time Temp Pulse Resp B/P (MAP) Pulse Ox O2 Delivery O2 Flow Rate FiO2 03/16/21 07:04 97.7 101 18 136/97 (110) 98 Room Air Current Medications Current Medications Medications (Trade) Dose Ordered Sig/Selene Route PRN Reason Start Time Stop Time Status Last Admin Dose Admin Acetaminophen (Tylenol Tab) 650 mg Q6HP PRN PO HEADACHE or MILD DISCOMFORT 03/13/21 06:55 03/15/21 21:27 Al Hydrox/Mg Hydrox/Simethicone (Mylanta) 30 ml Q4HP PRN PO HEARTBURN/INDIGESTION 03/13/21 06:55 Amlodipine Besylate (Norvasc) 2.5 mg QHS PO 03/15/21 18:20 Diphenhydramine HCl (Benadryl) 50 mg BID@0900,1600 PO 03/15/21 09:00 03/19/21 09:33 Diphenhydramine HCl (Benadryl) 50 mg DAILYPRN PRN PO ANXIETY 03/14/21 14:05 03/15/21 10:12 DC 03/14/21 14:47 Diphenhydramine HCl (Benadryl) 75 mg QHSP PRN PO ANXIETY 03/13/21 18:55 03/18/21 20:10 Haloperidol (Haldol) 2 mg Q4HP PRN PO ANXIETY/AGITATION 03/13/21 06:55 03/13/21 10:45 DC Haloperidol (Haldol) 3 mg Q4HP PRN PO ANXIETY/AGITATION 03/13/21 10:45 Cancel Haloperidol (Haldol) 3 mg QHS PO 03/13/21 21:00 03/15/21 11:57 DC Haloperidol (Haldol) 5 mg STAT STAT IM 03/14/21 19:34 03/14/21 19:41 DC 03/14/21 19:54 Home Med (Home Med List Complete!) ASDIRECTED XX 03/13/21 00:15 03/13/21 00:27 DC Lorazepam (Ativan) 1 mg Q4HP PRN PO ANXIETY/Agitation 03/13/21 10:45 Lorazepam (Ativan) 1 mg STAT STAT IM 03/14/21 19:34 03/14/21 19:41 DC 03/14/21 19:54 Lorazepam (Ativan) 1 mg STAT STAT IM 03/14/21 19:34 03/14/21 19:41 DC Lorazepam (Ativan) 1 mg STAT STAT IM 03/14/21 21:06 03/14/21 21:07 DC 03/14/21 21:14 Lorazepam (Ativan) 1 mg STAT STAT PO 03/13/21 01:02 03/13/21 01:03 DC 03/13/21 01:02 Magnesium Hydroxide (Milk Of Magnesia) 30 ml DAILYPRN PRN PO CONSTIPATION 03/13/21 06:55 Nicotine (Nicoderm Cq 21mg) 1 patch DAILY PRN TD nicotine withdrawal 03/13/21 06:55 Olanzapine (ZyPREXA) 5 mg Q4HP PRN PO AGITATION 03/15/21 10:50 Olanzapine (ZyPREXA) 10 mg QHS PO 03/15/21 21:00 03/16/21 13:06 DC 03/15/21 20:41 Olanzapine (ZyPREXA) 20 mg QHS PO 03/16/21 21:00 03/18/21 20:10 Trazodone HCl (Desyrel) 50 mg QHSP PRN PO INSOMNIA 03/13/21 06:55 Allergies Coded Allergies: benztropine (Verified Allergy, Unknown, unk, 03/12/21) risperidone (Verified Allergy, Unknown, unk, 03/12/21) LUCY FLOWER MD Mar 19, 2021 11:46
[2021-03-19] MEDS ORDERED: haloperidoL 5 MG TAB PO PRN (11:50)
[2021-03-19 18:54] VITALS: BP 166/101
[2021-03-19 21:00] VITALS: BP 191/93
[2021-03-19] MEDS ORDERED: OLANZapine 10 MG TAB PO SCH (21:00)
[2021-03-19] MEDS ORDERED: haloperidoL 5 MG TAB PO SCH (21:00)
[2021-03-19] MEDS: diphenhydrAMINE 25MG CAP PO PRN (21:15)
[2021-03-19] MEDS: ACETAMINOPHEN TAB 650MG DOSE (2X325MG) PO PRN (21:19)
[2021-03-20 07:26] VITALS: BP 162/82
[2021-03-20] MEDS: diphenhydrAMINE 50MG CAP PO SCH ×2 (08:49→15:17)
[2021-03-20] MEDS: ACETAMINOPHEN TAB 650MG DOSE (2X325MG) PO PRN (20:30)
[2021-03-20] MEDS: diphenhydrAMINE 25MG CAP PO PRN (20:30)
[2021-03-20] MEDS: OLANZapine 10 MG TAB PO SCH (20:30)
[2021-03-20] MEDS: haloperidoL 5 MG TAB PO SCH (21:00)
[2021-03-21] MEDS: OLANZapine 10 MG TAB PO SCH ×3 (09:00→21:17)
[2021-03-21] MEDS: diphenhydrAMINE 50MG CAP PO SCH ×2 (09:42→15:46)
[2021-03-21] MEDS: haloperidoL 5 MG TAB PO SCH (21:00)
[2021-03-21] MEDS: diphenhydrAMINE 25MG CAP PO PRN (21:05)
[2021-03-22] MEDS: diphenhydrAMINE 50MG CAP PO SCH ×2 (08:54→15:09)
[2021-03-22] MEDS: OLANZapine 10 MG TAB PO SCH ×2 (08:55→20:28)
[2021-03-22] MEDS: **PENDING PPD ENTRY XX SCH (09:00)
[2021-03-22] MEDS ORDERED: TUBERCULIN PPD 5 UNITS/0.1 ML ID ONE (10:50)
--- NOTE | 2021-03-22 12:54 | MHIPNPDOC ---
[facility] Progress Note Progress Note DATE OF SERVICE: 03/22/21 HISTORY: Patient is a 45-year-old -Burmese man with a history of schizophrenia who presents to the ED with police due to acute disorganization in context of noncompliance with medications and outpatient appointments. Brother called 911 and he was brought in to the hospital. Interval: Patient left his room and required redirection, as he is on contact precautions, was educated about risk of supposing others, safety for self. States he has been taking 2 high dose of olanzapine, 40 mg nightly, was reassured he is prescribed 20 mg nightly and was encouraged to continue with the medication, also offered again 10 mg daily, patient perseverated on the dimple nment being involved technology being around his head, food being contaminated and poisoned, became verbally irritable and threatening making vague homicidal statements, was unable to self soothe stating he did not want to speak with us further. Was assured he is in a safe place and that we are here to support him. Continues to refuse Haldol, despite education may be more beneficial for psychotic symptoms. VITAL SIGNS: See below. NEW TEST RESULTS: See below CURRENT MEDICATIONS: See below. MENTAL STATUS EXAMINATION: Patient is a 45-year old -Burmese male, who is in no acute distress, has dreadlocks, balding, appears older than stated age, intense eye contact and appears to be responding to internal stimuli, somewhat disheveled, walking in the hallways. Speech: Is disordered, spontaneous Language skills are poor. Thought processes including: Continues to be disorganized Thought content: Denies suicidal ideation, intent or plan. Makes vague homicidal statements due to frustration of receiving treatment abstract reasoning, and computation: Poor. Description of associations: Poor. Description of abnormal or psychotic thoughts: Bizarre delusions, paranoia, appears to be seeing auditory visual hallucination, but continues to be i nternally preoccupied Judgment: Poor. Insight: Poor. Orientation: To person and place. Recent and remote memory: Poor. Attention span and concentration: Poor. Language: Palestinian. Fund of knowledge: below average based on interview Mood: "Still about the government you guys keeping me here" affect: Grossly psychotic, disorganized, internally preoccupied, inappropriate, continues to be paranoid, labile affect DIAGNOSES: 1. Schizophrenia per history 2. Cannabis use disorder per history 3. Tobacco use disorder per history, supplemented with nicotine patch ASSESSMENT: Patient continues to be grossly psychotic, disorganized internally preoccupied, conversation keeps shifting to random topics, has labile affect with calm periods where he is receptive and other times shifts quickly to parano ia, irritability making vague homicidal thoughts and provocations with explicit language. Attempts were made to redirect patient but continues to be disorganized wanting to have his own space and be left alone. MANAGEMENT PLAN: Refusing Haldol but taking nighttime olanzapine, increase olanzapine to 30 mg nightly for psychotic symptoms, discontinue Haldol, has been refusing daytime dose of olanzapine, pending placement as [facility] unless symptomatic improvement. TIME SPENT: 20 minutes. Vital Signs Vital Signs Date Time Temp Pulse Resp B/P (MAP) Pulse Ox O2 Delivery O2 Flow Rate FiO2 03/21/21 13:42 16 03/21/21 10:30 Room Air 03/20/21 07:26 97.7 89 162/82 (108) 98 Current Medications Current Medications Medications (Trade) Dose Ordered Sig/Selene Route PRN Reason Start Time Stop Time Status Last Admin Dose Admin Acetaminophen (Tylenol Tab) 650 mg Q6HP PRN PO HEADACHE or MILD DISCOMFORT 03/13/21 06:55 03/20/21 20:30 Al Hydrox/Mg Hydrox/Simethicone (Mylanta) 30 ml Q4HP PRN PO HEARTBURN/INDIGESTION 03/13/21 06:55 Amlodipine Besylate (Norvasc) 2.5 mg QHS PO 03/15/21 18:20 Diphenhydramine HCl (Benadryl) 50 mg BID@0900,1600 PO 03/15/21 09:00 03/22/21 08:54 Diphenhydramine HCl (Benadryl) 50 mg DAILYPRN PRN PO ANXIETY 03/14/21 14:05 03/15/21 10:12 DC 03/14/21 14:47 Diphenhydramine HCl (Benadryl) 75 mg QHSP PRN PO ANXIETY 03/13/21 18:55 03/21/21 21:05 Haloperidol (Haldol) 2 mg Q4HP PRN PO ANXIETY/AGITATION 03/13/21 06:55 03/13/21 10:45 DC Haloperidol (Haldol) 3 mg Q4HP PRN PO ANXIETY/AGITATION 03/13/21 10:45 Cancel Haloperidol (Haldol) 3 mg QHS PO 03/13/21 21:00 03/15/21 11:57 DC Haloperidol (Haldol) 5 mg Q4HP PRN PO AGITATION 03/19/21 11:50 Haloperidol (Haldol) 5 mg QHS PO 03/19/21 21:00 03/20/21 12:25 DC Haloperidol (Haldol) 5 mg QHS PO 03/20/21 21:00 Haloperidol (Haldol) 5 mg STAT STAT IM 03/14/21 19:34 03/14/21 19:41 DC 03/14/21 19:54 Haloperidol (Haldol) 10 mg QHS PO 03/20/21 21:00 03/20/21 13:17 DC Home Med (Home Med List Complete!) ASDIRECTED XX 03/13/21 00:15 03/13/21 00:27 DC Lorazepam (Ativan) 1 mg Q4HP PRN PO ANXIETY/Agitation 03/13/21 10:45 Lorazepam (Ativan) 1 mg STAT STAT IM 03/14/21 19:34 03/14/21 19:41 DC 03/14/21 19:54 Lorazepam (Ativan) 1 mg STAT STAT IM 03/14/21 19:34 03/14/21 19:41 DC Lorazepam (Ativan) 1 mg STAT STAT IM 03/14/21 21:06 03/14/21 21:07 DC 03/14/21 21:14 Lorazepam (Ativan) 1 mg STAT STAT PO 03/13/21 01:02 03/13/21 01:03 DC 03/13/21 01:02 Magnesium Hydroxide (Milk Of Magnesia) 30 ml DAILYPRN PRN PO CONSTIPATION 03/13/21 06:55 Nicotine (Nicoderm Cq 21mg) 1 patch DAILY PRN TD nicotine withdrawal 03/13/21 06:55 Non-Formulary Medication ( See Comment Field Below ) SEE COMMENTS SECTION 1T@10 XX 03/24/21 10:00 03/25/21 09:59 UNV Non-Formulary Medication ( See Comment Field Below ) SEE LABEL COMMENTS DAILY XX 03/22/21 09:00 Olanzapine (ZyPREXA) 5 mg Q4HP PRN PO AGITATION 03/15/21 10:50 Cancel Olanzapine (ZyPREXA) 10 mg DAILY PO 03/21/21 09:00 Olanzapine (ZyPREXA) 10 mg QHS PO 03/15/21 21:00 03/16/21 13:06 DC 03/15/21 20:41 Olanzapine (ZyPREXA) 10 mg QHS PO 03/19/21 21:00 03/20/21 13:17 DC 03/19/21 20:46 Olanzapine (ZyPREXA) 20 mg QHS PO 03/16/21 21:00 03/19/21 11:48 DC 03/18/21 20:10 Olanzapine (ZyPREXA) 20 mg QHS PO 03/20/21 21:00 03/21/21 21:17 Trazodone HCl (Desyrel) 50 mg QHSP PRN PO INSOMNIA 03/13/21 06:55 Allergies Coded Allergies: benztropine (Verified Allergy, Unknown, unk, 03/12/21) risperidone (Verified Allergy, Unknown, unk, 03/12/21) LUCY FLOWER MD Mar 22, 2021 12:53
[2021-03-22] MEDS: diphenhydrAMINE 25MG CAP PO PRN (20:28)
[2021-03-23 06:10] VITALS: BP 149/78
[2021-03-23] MEDS: **PENDING PPD ENTRY XX SCH (09:00)
[2021-03-23] MEDS: diphenhydrAMINE 50MG CAP PO SCH ×2 (09:43→16:04)
--- NOTE | 2021-03-23 14:11 | MHIPNPDOC ---
[facility] Progress Note Progress Note DATE OF SERVICE: 03/23/21 HISTORY: Patient is a 45-year-old -Algerian man with a history of schizophrenia who presents to the ED with police due to acute disorganization in context of noncompliance with medications and outpatient appointments. Brother called 911 and he was brought in to the hospital. Interval: Patient continues to take his nighttime olanzapine medication, continues to be on COVID precautions with isolation, he is less aggressive and irritable today, continues to voice paranoid about people poisoning his food, the government and conspiracy against him, machines interacting with him. Denies acute physical complaints. VITAL SIGNS: See below. NEW TEST RESULTS: See below CURRENT MEDICATIONS: See below. MENTAL STATUS EXAMINATION: Patient is a 45-year old -Algerian male, who is in no acute distress, has dreadlocks, balding, appears older than stated age, intense eye contact and appears to be responding to internal stimuli, somewhat disheveled, walking in the hallways. Speech: Is disordered, spontaneous Language skills are poor. Thought processes including: Continues to be disorganized Thought content: Denies suicidal ideation, intent or plan. Makes vague homicidal statements due to frustration of receiving treatment abstract reasoning, and computation: Poor. Description of associations: Poor. Description of abnormal or psychotic thoughts: Bizarre delusions, paranoia, appears to be seeing auditory visual hallucination, but continues to be internally preoccupied Judgment: Poor. Insight: Poor. Orientation: To person and place. Recent and remote memory: Poor. Attention span and concentration: Poor. Language: Marshallese. Fund of knowledge: below average based on interview Mood: "It is about the government spell policies about machines" affect: No change, less irritable today on interview continues to be grossly psychotic, disorganized, internally preoccupied, inappropriate, continues to be paranoid, labile affect DIAGNOSES: 1. Schizophrenia per history 2. Cannabis use disorder per history 3. Tobacco use disorder per history, supplemented with nicotine patch ASSESSMENT: Patient continues to ramble. Patient no longer making homicidal statements, continues to appear paranoid, has hyperreligiosity, persecutory delusions, and generally is disorganized at times with periods of lucidity, has been taking his nighttime olanzapine, encouraged to take his daytime dose of olanzapine, continues to refuse Haldol or other medication options. MANAGEMENT PLAN: Continue olanzapine to 30 mg nightly for psychotic symptoms, discontinue Haldol, has been refusing daytime dose of olanzapine, has olanzapine 10 mg p.o. daily which he has been refusing, pending placement at [facility] unless symptomatic improvement. TIME SPENT: 15 minutes Vital Signs Vital Signs Date Time Temp Pulse Resp B/P (MAP) Pulse Ox O2 Delivery O2 Flow Rate FiO2 03/23/21 06:10 98.4 93 14 149/78 (101) 99 Room Air Current Medications Current Medications Medications (Trade) Dose Ordered Sig/Selene Route PRN Reason Start Time Stop Time Status Last Admin Dose Admin Acetaminophen (Tylenol Tab) 650 mg Q6HP PRN PO HEADACHE or MILD DISCOMFORT 03/13/21 06:55 03/20/21 20:30 Al Hydrox/Mg Hydrox/Simethicone (Mylanta) 30 ml Q4HP PRN PO HEARTBURN/INDIGESTION 03/13/21 06:55 Amlodipine Besylate (Norvasc) 2.5 mg QHS PO 03/15/21 18:20 Diphenhydramine HCl (Benadryl) 50 mg BID@0900,1600 PO 03/15/21 09:00 03/23/21 09:43 Diphenhydramine HCl (Benadryl) 50 mg DAILYPRN PRN PO ANXIETY 03/14/21 14:05 03/15/21 10:12 DC 03/14/21 14:47 Diphenhydramine HCl (Benadryl) 75 mg QHSP PRN PO ANXIETY 03/13/21 18:55 03/22/21 20:28 Haloperidol (Haldol) 2 mg Q4HP PRN PO ANXIETY/AGITATION 03/13/21 06:55 03/13/21 10:45 DC Haloperidol (Haldol) 3 mg Q4HP PRN PO ANXIETY/AGITATION 03/13/21 10:45 Cancel Haloperidol (Haldol) 3 mg QHS PO 03/13/21 21:00 03/15/21 11:57 DC Haloperidol (Haldol) 5 mg Q4HP PRN PO AGITATION 03/19/21 11:50 Haloperidol (Haldol) 5 mg QHS PO 03/19/21 21:00 03/20/21 12:25 DC Haloperidol (Haldol) 5 mg QHS PO 03/20/21 21:00 03/22/21 13:17 DC Haloperidol (Haldol) 5 mg STAT STAT IM 03/14/21 19:34 03/14/21 19:41 DC 03/14/21 19:54 Haloperidol (Haldol) 10 mg QHS PO 03/20/21 21:00 03/20/21 13:17 DC Home Med (Home Med List Complete!) ASDIRECTED XX 03/13/21 00:15 03/13/21 00:27 DC Lorazepam (Ativan) 1 mg Q4HP PRN PO ANXIETY/Agitation 03/13/21 10:45 Lorazepam (Ativan) 1 mg STAT STAT IM 03/14/21 19:34 03/14/21 19:41 DC 03/14/21 19:54 Lorazepam (Ativan) 1 mg STAT STAT IM 03/14/21 19:34 03/14/21 19:41 DC Lorazepam (Ativan) 1 mg STAT STAT IM 03/14/21 21:06 03/14/21 21:07 DC 03/14/21 21:14 Lorazepam (Ativan) 1 mg STAT STAT PO 03/13/21 01:02 03/13/21 01:03 DC 03/13/21 01:02 Magnesium Hydroxide (Milk Of Magnesia) 30 ml DAILYPRN PRN PO CONSTIPATION 03/13/21 06:55 Nicotine (Nicoderm Cq 21mg) 1 patch DAILY PRN TD nicotine withdrawal 03/13/21 06:55 Non-Formulary Medication ( See Comment Field Below ) SEE COMMENTS SECTION 1T@10 XX 03/24/21 10:00 03/25/21 09:59 UNV Non-Formulary Medication ( See Comment Field Below ) SEE LABEL COMMENTS DAILY XX 03/22/21 09:00 Olanzapine (ZyPREXA) 5 mg Q4HP PRN PO AGITATION 03/15/21 10:50 Cancel Olanzapine (ZyPREXA) 10 mg DAILY PO 03/21/21 09:00 03/22/21 13:17 DC Olanzapine (ZyPREXA) 10 mg QHS PO 03/15/21 21:00 03/16/21 13:06 DC 03/15/21 20:41 Olanzapine (ZyPREXA) 10 mg QHS PO 03/19/21 21:00 03/20/21 13:17 DC 03/19/21 20:46 Olanzapine (ZyPREXA) 20 mg QHS PO 03/16/21 21:00 03/19/21 11:48 DC 03/18/21 20:10 Olanzapine (ZyPREXA) 20 mg QHS PO 03/20/21 21:00 03/22/21 13:17 DC 03/21/21 21:17 Olanzapine (ZyPREXA) 30 mg QHS PO 03/22/21 21:00 03/22/21 20:28 Trazodone HCl (Desyrel) 50 mg QHSP PRN PO INSOMNIA 03/13/21 06:55 Allergies Coded Allergies: benztropine (Verified Allergy, Unknown, unk, 03/12/21) risperidone (Verified Allergy, Unknown, unk, 03/12/21) LUCY FLOWER MD Mar 23, 2021 14:11
[2021-03-23] MEDS: OLANZapine 10 MG TAB PO SCH (20:30)
[2021-03-23] MEDS: diphenhydrAMINE 25MG CAP PO PRN (20:30)
[2021-03-24] MEDS: diphenhydrAMINE 50MG CAP PO SCH ×2 (08:08→15:25)
[2021-03-24] MEDS: **PENDING PPD ENTRY XX SCH (08:10)
[2021-03-24] MEDS ORDERED: PPD DOCUMENTATION ENTRY MISC XX SCH (10:00)
--- NOTE | 2021-03-24 11:23 | MHIPNPDOC ---
[facility] Progress Note Progress Note DATE OF SERVICE: 03/24/21 HISTORY: Patient is a 45-year-old -Sammarinese man with a history of schizophrenia who presents to the ED with police due to acute disorganization in context of noncompliance with medications and outpatient appointments. Brother called 911 and he was brought in to the hospital. Interval: Charts reviewed, patient states he flies in groups, has been taking nighttime olanzapine 30 mg nightly, denies any side effects, denies acute physical complaints, mood seems more even and reported to be good today, appears less disorganized, less paranoid, denies suicidal or homicidal ideations. VITAL SIGNS: See below. NEW TEST RESULTS: See below CURRENT MEDICATIONS: See below. MENTAL STATUS EXAMINATION: Patient is a 45-year old -Sammarinese male, who is in no acute distress, has dreadlocks, balding, appears older than stated age, intense eye contact and appears to be responding to internal stimuli, somewhat disheveled, walking in the hallways. Speech: Is disordered, spontaneous Language skills are poor. Thought processes including: Continues to be disorganized Thought content: Denies suicidal ideation, intent or plan. Denies homicidal ideation. abstract reasoning, and computation: Poor. Description of associations: Good was able to get proverbs correct Description of abnormal or psychotic thoughts: Less internally preoccupied, less disorganized, less paranoid, denies hallucinations Judgment: Improving Insight: Improving Orientation: To person and place. Recent and remote memory: Poor. Attention span and concentration: Poor. Language: Thai. Fund of knowledge: below average based on interview Mood: "Pretty good doc" affect: Mood is more even, less labile, less irritable, less paranoid, less disorganized, still has delusions about government involvement but states he does not want talk about this DIAGNOSES: 1. Schizophrenia per history 2. Cannabis use disorder per history 3. Tobacco use disorder per history, supplemented with nicotine patch ASSESSMENT: Patient continues to take his nighttime olanzapine, today seems less irritable, more organized, more calm, is off covid precautions, states he plans to attend groups but does not like nat[facility] group, less paranoid, mood is more even, states it is good today. Reports normal sleep and appetite, no acute physical complaints. Continues to her stay to ensure stability, possible discharge in the next 2 days. MANAGEMENT PLAN: Continue olanzapine to 30 mg nightly for psychotic symptoms, discontinue Haldol, has been refusing daytime dose of olanzapine, has olanzapine 10 mg p.o. daily which he has been refusing, pending placement at [facility] unless symptomatic improvement. TIME SPENT: 15 minutes Vital Signs Vital Signs Date Time Temp Pulse Resp B/P (MAP) Pulse Ox O2 Delivery O2 Flow Rate FiO2 03/23/21 06:10 98.4 93 14 149/78 (101) 99 Room Air Current Medications Current Medications Medications (Trade) Dose Ordered Sig/Selene Route PRN Reason Start Time Stop Time Status Last Admin Dose Admin Acetaminophen (Tylenol Tab) 650 mg Q6HP PRN PO HEADACHE or MILD DISCOMFORT 03/13/21 06:55 03/20/21 20:30 Al Hydrox/Mg Hydrox/Simethicone (Mylanta) 30 ml Q4HP PRN PO HEARTBURN/INDIGESTION 03/13/21 06:55 Amlodipine Besylate (Norvasc) 2.5 mg QHS PO 03/15/21 18:20 Diphenhydramine HCl (Benadryl) 50 mg BID@0900,1600 PO 03/15/21 09:00 03/24/21 08:08 Diphenhydramine HCl (Benadryl) 50 mg DAILYPRN PRN PO ANXIETY 03/14/21 14:05 03/15/21 10:12 DC 03/14/21 14:47 Diphenhydramine HCl (Benadryl) 75 mg QHSP PRN PO ANXIETY 03/13/21 18:55 03/23/21 20:30 Haloperidol (Haldol) 2 mg Q4HP PRN PO ANXIETY/AGITATION 03/13/21 06:55 03/13/21 10:45 DC Haloperidol (Haldol) 3 mg Q4HP PRN PO ANXIETY/AGITATION 03/13/21 10:45 Cancel Haloperidol (Haldol) 3 mg QHS PO 03/13/21 21:00 03/15/21 11:57 DC Haloperidol (Haldol) 5 mg Q4HP PRN PO AGITATION 03/19/21 11:50 Haloperidol (Haldol) 5 mg QHS PO 03/19/21 21:00 03/20/21 12:25 DC Haloperidol (Haldol) 5 mg QHS PO 03/20/21 21:00 03/22/21 13:17 DC Haloperidol (Haldol) 5 mg STAT STAT IM 03/14/21 19:34 03/14/21 19:41 DC 03/14/21 19:54 Haloperidol (Haldol) 10 mg QHS PO 03/20/21 21:00 03/20/21 13:17 DC Home Med (Home Med List Complete!) ASDIRECTED XX 03/13/21 00:15 03/13/21 00:27 DC Lorazepam (Ativan) 1 mg Q4HP PRN PO ANXIETY/Agitation 03/13/21 10:45 Lorazepam (Ativan) 1 mg STAT STAT IM 03/14/21 19:34 03/14/21 19:41 DC 03/14/21 19:54 Lorazepam (Ativan) 1 mg STAT STAT IM 03/14/21 19:34 03/14/21 19:41 DC Lorazepam (Ativan) 1 mg STAT STAT IM 03/14/21 21:06 03/14/21 21:07 DC 03/14/21 21:14 Lorazepam (Ativan) 1 mg STAT STAT PO 03/13/21 01:02 03/13/21 01:03 DC 03/13/21 01:02 Magnesium Hydroxide (Milk Of Magnesia) 30 ml DAILYPRN PRN PO CONSTIPATION 03/13/21 06:55 Nicotine (Nicoderm Cq 21mg) 1 patch DAILY PRN TD nicotine withdrawal 03/13/21 06:55 Non-Formulary Medication ( See Comment Field Below ) SEE COMMENTS SECTION 1T@10 XX 03/24/21 10:00 03/25/21 09:59 UNV Non-Formulary Medication ( See Comment Field Below ) SEE LABEL COMMENTS DAILY XX 03/22/21 09:00 Olanzapine (ZyPREXA) 5 mg Q4HP PRN PO AGITATION 03/15/21 10:50 Cancel Olanzapine (ZyPREXA) 10 mg DAILY PO 03/21/21 09:00 03/22/21 13:17 DC Olanzapine (ZyPREXA) 10 mg QHS PO 03/15/21 21:00 03/16/21 13:06 DC 03/15/21 20:41 Olanzapine (ZyPREXA) 10 mg QHS PO 03/19/21 21:00 03/20/21 13:17 DC 03/19/21 20:46 Olanzapine (ZyPREXA) 20 mg QHS PO 03/16/21 21:00 03/19/21 11:48 DC 03/18/21 20:10 Olanzapine (ZyPREXA) 20 mg QHS PO 03/20/21 21:00 03/22/21 13:17 DC 03/21/21 21:17 Olanzapine (ZyPREXA) 30 mg QHS PO 03/22/21 21:00 03/23/21 20:30 Trazodone HCl (Desyrel) 50 mg QHSP PRN PO INSOMNIA 03/13/21 06:55 Allergies Coded Allergies: benztropine (Verified Allergy, Unknown, unk, 03/12/21) risperidone (Verified Allergy, Unknown, unk, 03/12/21) LUCY FLOWER MD Mar 24, 2021 11:23
[2021-03-24 16:27] VITALS: BP 152/96
[2021-03-24] MEDS: diphenhydrAMINE 25MG CAP PO PRN (20:51)
[2021-03-24] MEDS: OLANZapine 10 MG TAB PO SCH (20:51)
[2021-03-25] MEDS: diphenhydrAMINE 50MG CAP PO SCH ×2 (08:14→15:13)
[2021-03-25] MEDS: **PENDING PPD ENTRY XX SCH (09:00)
--- NOTE | 2021-03-25 12:56 | MHIPNPDOC ---
[facility] Progress Note Progress Note DATE OF SERVICE: 03/25/21 HISTORY: Patient is a 45-year-old -Sammarinese man with a history of schizophrenia who presents to the ED with police due to acute disorganization in context of noncompliance with medications and outpatient appointments. Brother called 911 and he was brought in to the hospital. Interval: Charts reviewed, patient has been going to groups, continues to be very psychotic, with rapid pressured speech, on the halls pacing has been refusing other medications apart from the olanzapine 30 mg nightly. Denies acute physical symptoms, denies medication side effects, states he is agreeable to being on the unit as long as necessary. Asked for music, made aware that he needs to have his own device at listening time, but if he had his home device can be brought in he could use it. Continues to report that people are poisoning his food. Continues to have labile mood swings. VITAL SIGNS: See below. NEW TEST RESULTS: See below CURRENT MEDICATIONS: See below. MENTAL STATUS EXAMINATION: Patient is a 45-year old -Sammarinese male, who is in no acute distress, has dreadlocks, balding, appears older than stated age, intense eye contact and appears to be responding to internal stimuli, somewhat disheveled, walking in the hallways. Speech: Is disordered, spontaneous, pressured Language skills are poor. Thought processes including: Continues to be disorganized Thought content: Denies suicidal ideation, intent or plan. Denies homicidal ideation. abstract reasoning, and computation: Poor. Description of associations: Good was able to get proverbs correct Description of abnormal or psychotic thoughts: Less internally preoccupied, less disorganized, less paranoid, hallucinations of blood being in his food Judgment: poor, Improving Insight: poor, Improving Orientation: To person and place. Recent and remote memory: Poor. Attention span and concentration: Poor. Language: Swazi. Fund of knowledge: below average based on interview Mood: "just fine" affect: Today continues to be pressured, with labile mood swings, continues to be disorganized, paranoid, delusions of people are poisoning his food and hallucinations of blood being in his DIAGNOSES: 1. Schizophrenia per history 2. Cannabis use disorder per history 3. Tobacco use disorder per history, supplemented with nicotine patch ASSESSMENT: Patient continues to take his nighttime olanzapine, continues to be less irritable, somewhat pressured. Plan to start daytime Depakote 750 mg e xtended release daily for mood stability in context of positive schizoaffective disorder versus schizophrenia. Patient denies medication side effects, refused other medication options, denies acute physical complaints. Vital stable. MANAGEMENT PLAN: Continue olanzapine to 30 mg nightly for psychotic symptoms, pending placement at [facility] unless symptomatic improvement. Reordered CMP in context of starting Depakote, LFTs slightly elevated on admission, but not greater than 3 times normal. TIME SPENT: 20 minutes Vital Signs Vital Signs Date Time Temp Pulse Resp B/P (MAP) Pulse Ox O2 Delivery O2 Flow Rate FiO2 03/24/21 16:27 98.7 108 18 152/96 (114) 99 Room Air Current Medications Current Medications Medications (Trade) Dose Ordered Sig/Selene Route PRN Reason Start Time Stop Time Status Last Admin Dose Admin Acetaminophen (Tylenol Tab) 650 mg Q6HP PRN PO HEADACHE or MILD DISCOMFORT 03/13/21 06:55 03/20/21 20:30 Al Hydrox/Mg Hydrox/Simethicone (Mylanta) 30 ml Q4HP PRN PO HEARTBURN/INDIGESTION 03/13/21 06:55 Amlodipine Besylate (Norvasc) 2.5 mg QHS PO 03/15/21 18:20 Diphenhydramine HCl (Benadryl) 50 mg BID@0900,1600 PO 03/15/21 09:00 03/25/21 08:14 Diphenhydramine HCl (Benadryl) 50 mg DAILYPRN PRN PO ANXIETY 03/14/21 14:05 03/15/21 10:12 DC 03/14/21 14:47 Diphenhydramine HCl (Benadryl) 75 mg QHSP PRN PO ANXIETY 03/13/21 18:55 03/24/21 20:51 Haloperidol (Haldol) 2 mg Q4HP PRN PO ANXIETY/AGITATION 03/13/21 06:55 03/13/21 10:45 DC Haloperidol (Haldol) 3 mg Q4HP PRN PO ANXIETY/AGITATION 03/13/21 10:45 Cancel Haloperidol (Haldol) 3 mg QHS PO 03/13/21 21:00 03/15/21 11:57 DC Haloperidol (Haldol) 5 mg Q4HP PRN PO AGITATION 03/19/21 11:50 Haloperidol (Haldol) 5 mg QHS PO 03/19/21 21:00 03/20/21 12:25 DC Haloperidol (Haldol) 5 mg QHS PO 03/20/21 21:00 03/22/21 13:17 DC Haloperidol (Haldol) 5 mg STAT STAT IM 03/14/21 19:34 03/14/21 19:41 DC 03/14/21 19:54 Haloperidol (Haldol) 10 mg QHS PO 03/20/21 21:00 03/20/21 13:17 DC Home Med (Home Med List Complete!) ASDIRECTED XX 03/13/21 00:15 03/13/21 00:27 DC Lorazepam (Ativan) 1 mg Q4HP PRN PO ANXIETY/Agitation 03/13/21 10:45 Lorazepam (Ativan) 1 mg STAT STAT IM 03/14/21 19:34 03/14/21 19:41 DC 03/14/21 19:54 Lorazepam (Ativan) 1 mg STAT STAT IM 03/14/21 19:34 03/14/21 19:41 DC Lorazepam (Ativan) 1 mg STAT STAT IM 03/14/21 21:06 03/14/21 21:07 DC 03/14/21 21:14 Lorazepam (Ativan) 1 mg STAT STAT PO 03/13/21 01:02 03/13/21 01:03 DC 03/13/21 01:02 Magnesium Hydroxide (Milk Of Magnesia) 30 ml DAILYPRN PRN PO CONSTIPATION 03/13/21 06:55 Nicotine (Nicoderm Cq 21mg) 1 patch DAILY PRN TD nicotine withdrawal 03/13/21 06:55 Non-Formulary Medication ( See Comment Field Below ) SEE COMMENTS SECTION 1T@10 XX 03/24/21 10:00 03/25/21 09:59 UNV Non-Formulary Medication ( See Comment Field Below ) SEE LABEL COMMENTS DAILY XX 03/22/21 09:00 Olanzapine (ZyPREXA) 5 mg Q4HP PRN PO AGITATION 03/15/21 10:50 Cancel Olanzapine (ZyPREXA) 10 mg DAILY PO 03/21/21 09:00 03/22/21 13:17 DC Olanzapine (ZyPREXA) 10 mg QHS PO 03/15/21 21:00 03/16/21 13:06 DC 03/15/21 20:41 Olanzapine (ZyPREXA) 10 mg QHS PO 03/19/21 21:00 03/20/21 13:17 DC 03/19/21 20:46 Olanzapine (ZyPREXA) 20 mg QHS PO 03/16/21 21:00 03/19/21 11:48 DC 03/18/21 20:10 Olanzapine (ZyPREXA) 20 mg QHS PO 03/20/21 21:00 03/22/21 13:17 DC 03/21/21 21:17 Olanzapine (ZyPREXA) 30 mg QHS PO 03/22/21 21:00 03/24/21 20:51 Trazodone HCl (Desyrel) 50 mg QHSP PRN PO INSOMNIA 03/13/21 06:55 Allergies Coded Allergies: benztropine (Verified Allergy, Unknown, unk, 03/12/21) risperidone (Verified Allergy, Unknown, unk, 03/12/21) LUCY FLOWER MD Mar 25, 2021 12:56
[2021-03-25] MEDS: diphenhydrAMINE 25MG CAP PO PRN (20:58)
[2021-03-25] MEDS: OLANZapine 10 MG TAB PO SCH (20:58)
[2021-03-26] MEDS: diphenhydrAMINE 50MG CAP PO SCH ×2 (08:01→15:53)
[2021-03-26] MEDS: OLANZapine 10 MG TAB PO SCH ×2 (08:01→20:11)
[2021-03-26] MEDS: **PENDING PPD ENTRY XX SCH (08:03)
[2021-03-26] MEDS ORDERED: DIVALPROEX 250MG *ER* TAB PO SCH (09:00)
--- NOTE | 2021-03-26 13:44 | MHIPNPDOC ---
[facility] Progress Note Progress Note DATE OF SERVICE: 03/26/21 HISTORY: Patient is a 45-year-old -[place] man with a history of schizophrenia who presents to the ED with police due to acute disorganization in context of noncompliance with medications and outpatient appointments. Brother called 911 and he was brought in to the hospital. Interval: Charts reviewed, patient appears more calm, stable with regards to mood, no longer yelling profanities, no longer reporting that his food is being tampered with, states that he feels he wants go back to his brothers soon, states he is doing well to medication without side effects, no acute physical complaints. No longer making paranoid statements about the government, machines taking over his mind, states enjoys reading the Bible, to keep himself occupied, and has been going to some groups, enjoys the coloring and art group. VITAL SIGNS: See below. NEW TEST RESULTS: See below CURRENT MEDICATIONS: See below. MENTAL STATUS EXAMINATION: Patient is a 45-year old -[place] male, who is in no acute distress, has dreadlocks, balding, appears older than stated age, has been going to some groups, calmly sitting and reading a Bible at his desk, improved eye contact Speech: Is circumstantial, spontaneous, no longer pressured Language skills are improved Thought processes including: Continues to be disorganized Thought content: Denies suicidal ideation, intent or plan. Denies homicidal ideation. abstract reasoning, and computation: Improving Description of associations: Good was able to get proverbs correct Description of abnormal or psychotic thoughts: Continues to be less internally preoccupied, less disorganized, less paranoid, hallucinations of blood being in his food Judgment: Improved Insight: Fair Orientation: To person and place. Recent and remote memory: Poor. Attention span and concentration: Poor. Language: Israeli. Fund of knowledge: below average based on interview Mood: "Good" affect: Calm, stable, euthymic, less paranoid and disorganized DIAGNOSES: 1. Schizophrenia per history 2. Cannabis use disorder per history 3. Tobacco use disorder per history, supplemented with nicotine patch ASSESSMENT: Patient's psychotic symptoms continue to significantly improve, less paranoid, less disorganized, no longer preoccupied with people tampering with his food, denying hallucinations, states that he will be ready to return home to his brother but understands that he needs continued stay, enjoys going to the groups involving art. MANAGEMENT PLAN: Continue olanzapine 10 mg daily, 20 mg nightly for psychotic symptoms, pending placement at [facility] unless symptomatic improvement, 2 PC completed. TIME SPENT: 15 minutes Vital Signs Vital Signs Date Time Temp Pulse Resp B/P (MAP) Pulse Ox O2 Delivery O2 Flow Rate FiO2 03/24/21 16:27 98.7 108 18 152/96 (114) 99 Room Air Current Medications Current Medications Medications (Trade) Dose Ordered Sig/Selene Route PRN Reason Start Time Stop Time Status Last Admin Dose Admin Acetaminophen (Tylenol Tab) 650 mg Q6HP PRN PO HEADACHE or MILD DISCOMFORT 03/13/21 06:55 03/20/21 20:30 Al Hydrox/Mg Hydrox/Simethicone (Mylanta) 30 ml Q4HP PRN PO HEARTBURN/INDIGESTION 03/13/21 06:55 Amlodipine Besylate (Norvasc) 2.5 mg QHS PO 03/15/21 18:20 Diphenhydramine HCl (Benadryl) 50 mg BID@0900,1600 PO 03/15/21 09:00 03/26/21 08:01 Diphenhydramine HCl (Benadryl) 50 mg DAILYPRN PRN PO ANXIETY 03/14/21 14:05 03/15/21 10:12 DC 03/14/21 14:47 Diphenhydramine HCl (Benadryl) 75 mg QHSP PRN PO ANXIETY 03/13/21 18:55 03/25/21 20:58 Divalproex Sodium (Depakote Er) 750 mg DAILY PO 03/26/21 09:00 UNV Haloperidol (Haldol) 2 mg Q4HP PRN PO ANXIETY/AGITATION 03/13/21 06:55 03/13/21 10:45 DC Haloperidol (Haldol) 3 mg Q4HP PRN PO ANXIETY/AGITATION 03/13/21 10:45 Cancel Haloperidol (Haldol) 3 mg QHS PO 03/13/21 21:00 03/15/21 11:57 DC Haloperidol (Haldol) 5 mg Q4HP PRN PO AGITATION 03/19/21 11:50 Haloperidol (Haldol) 5 mg QHS PO 03/19/21 21:00 03/20/21 12:25 DC Haloperidol (Haldol) 5 mg QHS PO 03/20/21 21:00 03/22/21 13:17 DC Haloperidol (Haldol) 5 mg STAT STAT IM 03/14/21 19:34 03/14/21 19:41 DC 03/14/21 19:54 Haloperidol (Haldol) 10 mg QHS PO 03/20/21 21:00 03/20/21 13:17 DC Home Med (Home Med List Complete!) ASDIRECTED XX 03/13/21 00:15 03/13/21 00:27 DC Lorazepam (Ativan) 1 mg Q4HP PRN PO ANXIETY/Agitation 03/13/21 10:45 Lorazepam (Ativan) 1 mg STAT STAT IM 03/14/21 19:34 03/14/21 19:41 DC 03/14/21 19:54 Lorazepam (Ativan) 1 mg STAT STAT IM 03/14/21 19:34 03/14/21 19:41 DC Lorazepam (Ativan) 1 mg STAT STAT IM 03/14/21 21:06 03/14/21 21:07 DC 03/14/21 21:14 Lorazepam (Ativan) 1 mg STAT STAT PO 03/13/21 01:02 03/13/21 01:03 DC 03/13/21 01:02 Magnesium Hydroxide (Milk Of Magnesia) 30 ml DAILYPRN PRN PO CONSTIPATION 03/13/21 06:55 Nicotine (Nicoderm Cq 21mg) 1 patch DAILY PRN TD nicotine withdrawal 03/13/21 06:55 Non-Formulary Medication ( See Comment Field Below ) SEE COMMENTS SECTION 1T@10 XX 03/24/21 10:00 03/25/21 09:59 UNV Non-Formulary Medication ( See Comment Field Below ) SEE LABEL COMMENTS DAILY XX 03/22/21 09:00 Olanzapine (ZyPREXA) 5 mg Q4HP PRN PO AGITATION 03/15/21 10:50 Cancel Olanzapine (ZyPREXA) 10 mg DAILY PO 03/21/21 09:00 03/22/21 13:17 DC Olanzapine (ZyPREXA) 10 mg DAILY PO 03/26/21 09:00 03/26/21 08:01 Olanzapine (ZyPREXA) 10 mg QHS PO 03/15/21 21:00 03/16/21 13:06 DC 03/15/21 20:41 Olanzapine (ZyPREXA) 10 mg QHS PO 03/19/21 21:00 03/20/21 13:17 DC 03/19/21 20:46 Olanzapine (ZyPREXA) 20 mg QHS PO 03/16/21 21:00 03/19/21 11:48 DC 03/18/21 20:10 Olanzapine (ZyPREXA) 20 mg QHS PO 03/20/21 21:00 03/22/21 13:17 DC 03/21/21 21:17 Olanzapine (ZyPREXA) 20 mg QHS PO 03/25/21 21:00 03/25/21 20:58 Olanzapine (ZyPREXA) 30 mg QHS PO 03/22/21 21:00 03/25/21 13:02 DC 03/24/21 20:51 Trazodone HCl (Desyrel) 50 mg QHSP PRN PO INSOMNIA 03/13/21 06:55 Allergies Coded Allergies: benztropine (Verified Allergy, Unknown, unk, 03/12/21) risperidone (Verified Allergy, Unknown, unk, 03/12/21) LUCY FLOWER MD Mar 26, 2021 13:44
[2021-03-26] MEDS: diphenhydrAMINE 25MG CAP PO PRN (20:11)
[2021-03-27 06:47] VITALS: BP 151/83
[2021-03-27] MEDS: diphenhydrAMINE 50MG CAP PO SCH ×2 (08:10→15:18)
[2021-03-27] MEDS: **PENDING PPD ENTRY XX SCH (08:11)
[2021-03-27] MEDS: OLANZapine 10 MG TAB PO SCH ×2 (08:11→20:14)
[2021-03-27 16:22] VITALS: BP 157/83
[2021-03-27] MEDS: diphenhydrAMINE 25MG CAP PO PRN (20:14)
[2021-03-28 07:04] VITALS: BP 178/95
[2021-03-28] MEDS: diphenhydrAMINE 50MG CAP PO SCH ×2 (08:08→15:50)
[2021-03-28] MEDS: **PENDING PPD ENTRY XX SCH (08:08)
[2021-03-28] MEDS: OLANZapine 10 MG TAB PO SCH ×2 (08:08→20:41)
[2021-03-28] MEDS: diphenhydrAMINE 25MG CAP PO PRN (20:41)
[2021-03-29] MEDS: diphenhydrAMINE 50MG CAP PO SCH (08:06)
[2021-03-29] MEDS: OLANZapine 10 MG TAB PO SCH (08:06)
[2021-03-29] MEDS: **PENDING PPD ENTRY XX SCH (08:07)
[2021-03-29] MEDS ORDERED: AMLO25TA PO (08:55)
[2021-03-29] MEDS ORDERED: DIPH25CA32 PO (08:55)
[2021-03-29] MEDS ORDERED: NICO21PAT TD (08:55)
[2021-03-29] MEDS ORDERED: OLAN1TAB20 PO ×2 (08:55)
[2021-03-29] MEDS ORDERED: DIPH50CA PO (08:55)
--- NOTE | 2021-03-29 11:39 | MHDSPDOC ---
[facility] Discharge Summary Discharge Summary DATE OF ADMISSION: Mar 13, 2021 at 06:51 DATE OF DISCHARGE: March 29, 2021 Discharge diagnoses: 1. Schizophrenia per history 2. Cannabis use disorder per history 3. Tobacco use disorder per history, supplemented with nicotine patch Reason for admission: Patient is a 45-year-old -[place] man with a history of schizophrenia who presents to the ED with police due to acute disorganization in context of noncompliance with medications and outpatient appointments. Brother called 911 and he was brought in to the hospital. Vital signs: See below Consultants involved: See medical H&P by hospitalist Treatment and progress on the unit: [facility] 9.39 [facility] status and was afforded the following treatment modalities: 1. Individual therapy 2. Group therapy 3. Medication management 4. Milieu therapy 5. Safe environment Hospital course: Patient was [facility] on a 9.39 legal status. Was medically cleared prior to coming up to the [facility]. Patient presented to the hospital psychotic, with bizarre delusions, and paranoid, had thoughts of the government was out to get him, that he is being monitored on cameras, that he was implanted with technology, people were poisoning his food, the blood was found in his food.due to bizarre behavior, was brought in after brother called 911.patient was trialed on olanzapine 10 mg p.o. nightly which was titrated up to 20 mg nightly with limited improvement, was offered Haldol as alternative treatment, which she refused, had reported EPS symptoms in the past which are bothersome, olanzapine was titrated up to 30 mg nightly and then switched to being given in divided doses of 20 mg nightly, 10 mg p.o. daily due to limited response on lower dose and continued paranoia, grossly psychotic behavior. Patient was placed in quarantine due to possible exposure to Covid upon arrival, needed constant redirecting and eventually was compliant with remaining in his room, since being released from quarantine has been going to multiple groups, he found the art groups in particularly helpful to clear his mind. Patient was also seen by medicine due to noted blood in his stool, which was noticed by nursing, fecal occult blood test was negative. Patient aware he needs to follow-up with outside doctor after discharge. Patient also refused his blood pressure medication despite education and was encouraged to follow-up with outside provider and continue his blood pressure medication, 2.5 mg amlodipine. Patient denied any symptoms of shortness of breath, chest pain, palpitations, headaches or neurological changes during stay after being treated with antipsychotic and having improvements in mood and reality testing. Patient was educated about the risks of cannabis use in context of schizophrenia, including risk for suicide, harm to others, worsening anxiety and mood symptoms, worsening hallucinations, worsening delusions and worsening paranoia. Patient found medications beneficial and tolerated them well. Denies mood anxiety and intrusive thoughts which improved with treatment. Patient attended groups daily during stay. Patient symptoms improved with treatment. On day of discharge patient denied depression, anxiety, insomnia, suicidal or homicidal ideations intent or plan, hallucinations, delusions. Patient was discharged home with follow-up. Patient felt safe for discharge. Was offered continued stay involuntary admission but refused. Discharge assessment: On today's interview patient is alert and oriented, dressed appropriately. Hygiene and grooming is significantly improved, reports took a shower. Smiles on approach and is pleasant and engaged on interview. Patient is alert and oriented x4, had an understanding of his treatment, understands need for follow-up with medical doctor for comorbidities. Denies depression and anxiety. Denies suicidal homicidal ideation, intent or planning. Denies and is not observed with neto or psychotic symptoms of delusions, hallucinations, bizarre thinking, obsessions, paranoia, ruminations, illogical thoughts, flight of ideas or having poor insight or judgment. Patient has normal mentation, declines further hospitalization of voluntary status and meets criteria for discharge today, patient encouraged to return the hospital if symptoms worsen or change and encouraged to call unit if they feel they need provider's questions to be answered or help with medications or care. Mental status: Patient is a 45-year old -[place] male, who is in no acute distress, has dreadlocks, balding, appears older than stated age, has been going to groups, calmly sitting on his bed, improved eye contact Speech: Is spontaneous, normal rate rhythm and volume Language skills are improved Thought processes including: Continues to be disorganized Thought content: Denies suicidal ideation, intent or plan. Denies homicidal ideation, intent or plan abstract reasoning, and computation: Fair Description of associations: Good was able to get proverbs correct, as on previous day Description of abnormal or psychotic thoughts: Denies hallucinations, no longer paranoid, no longer acutely disorganized Judgment: Good Insight: Fair Orientation: X4 Recent and remote memory: Fair Attention span and concentration: Improved Language: Stateless. Fund of knowledge: below average based on interview Mood: "Good" affect: Calm, stable, euthymic, less paranoid and disorganized Medications on discharge: see medication reconciliation: CSSRS on discharge: Wish to be : No nonspecific active suicidal thoughts: No lifetime attempts: 0 interrupted attempts: 0 aborted attempts: 0 preparatory acts or behavior: None Taking into consideration safety state, status, modifiable, non-modifiable risk factors patient is at low risk on discharge for suicide according to [facility] suicide evaluation. PLAN/FOLLOWUP ARRANGEMENTS: Patient will be following up with [facility] within 5 days, [facility]; primary doctor, see social work notes for details, brother is agreeable to have him home per reach out from care team and will pick him up today. The amount of time spent in the coordination of care for this patient was approximately 25 minutes. ETOH/Disorder Med Rx ETOH/DRUG DISORDER RX: Offrd @ d/c & pt refused Vital Signs/I&Os Vital Signs Date Time Temp Pulse Resp B/P (MAP) Pulse Ox O2 Delivery O2 Flow Rate FiO2 03/28/21 07:04 99.3 82 14 178/95 (122) 99 03/27/21 16:22 Room Air Medications Scheduled Amlodipine Besylate (Amlodipine Besylate) 2.5 Mg Tablet, 2.5 MG PO QHS for htn, #7 Diphenhydramine HCl (Diphenhydramine HCl) 50 Mg Capsule, 50 MG PO BID@0900,1600 for anxiety, #14 Olanzapine (Olanzapine) 10 Mg Tablet, 20 MG PO QHS for psychosis, #14 Olanzapine (Olanzapine) 10 Mg Tablet, 10 MG PO DAILY for psychosis, #7 Scheduled PRN Diphenhydramine HCl (Diphenhydramine HCl) 25 Mg Capsule, 75 MG PO QHSP PRN for ANXIETY, #7 Nicotine (Nicotine Patch) 21 Mg Patch.td24, 1 PATCH TD DAILY PRN for nicotine withdrawal, #7 Allergies Coded Allergies: benztropine (Verified Allergy, Unknown, unk, 03/12/21) risperidone (Verified Allergy, Unknown, unk, 03/12/21) LUCY FLOWER MD Mar 29, 2021 11:39
== END 2021-03-29 12:48 | disposition home or self-care (01) | DRG 750 ==
LOC: M ED 19:44 → EDBD 19:44 → M ED INP 03-13 06:51 → M PSY 03-13 10:14
PROVIDERS: ADMIT Student in an Organized Health Care Education/Training Program; ATTEND Student in an Organized Health Care Education/Training Program
DX: F20.9 Schizophrenia, unspecified (principal); F12.10 Cannabis abuse, uncomplicated; F17.210 Nicotine dependence, cigarettes, uncomplicated; Z91.14 Patient's other noncompliance with medication regimen; Z91.19 Patient's noncompliance with other medical treatment and regimen; K62.5 Hemorrhage of anus and rectum; Z20.822 Contact with and (suspected) exposure to COVID-19; Z88.8 Allergy status to other drugs, medicaments and biological substances; Z78.1 Physical restraint status

== ENCOUNTER 2021-04-19 21:32 | Inpatient (IN) | payer OTHER ==
[~2021-04-19] VITALS: Ht 172.7 cm; Wt 77.1 kg
[~2021-04-19 21:32] MED LIST: AMLO25TA PO; DIPH25CA32 PO; DIPH50CA PO; NICO21PAT TD; OLAN1TAB20 PO
[2021-04-19] MEDS ORDERED: OLANZapine ORAL DISINTEGRATING TAB 5MG PO ONE (21:45)
[2021-04-19 22:04] LABS: HEMATOCRIT 41.2 % (42.0-52.0); MEAN CORPUSCULAR HEMOGLOBIN 30.2 pg (27.0-33.0); MEAN CORPUSCULAR HGB CONC 31.6 g/dl (32.0-36.5); MEAN CORPUSCULAR VOLUME 95.6 fl (80.0-96.0); PLATELET COUNT, AUTOMATED 304 10^3/uL (150-450); RED BLOOD COUNT 4.31 10^6/uL (4.30-6.10); WHITE BLOOD COUNT 10.9 10^3/uL (4.0-10.0)
[2021-04-19 22:40] LABS: ACETAMINOPHEN LEVEL < 2.0 UG/ML (10.0-30.0); ALBUMIN 3.4 GM/DL (3.2-5.2); ALT/SGPT 48 U/L (12-78); BILIRUBIN,DIRECT < 0.1 MG/DL (0.0-0.2); BILIRUBIN,TOTAL 0.2 MG/DL (0.2-1.0); BLOOD UREA NITROGEN 14 MG/DL (7-18); CALCIUM LEVEL 8.5 MG/DL (8.5-10.1); CARBON DIOXIDE LEVEL 32 MEQ/L (21-32); CHLORIDE LEVEL 102 MEQ/L (98-107); CREATININE FOR GFR 1.05 MG/DL (0.70-1.30); ETHYL ALCOHOL (ETHANOL) < 0.003 % (0.000-0.010); GLOMERULAR FILTRATION RATE > 60.0 (>60); GLUCOSE, FASTING 130 MG/DL (70-100); POTASSIUM SERUM 3.4 MEQ/L (3.5-5.1); SALICYLATE LEVEL 1.8 MG/DL (5.0-30.0); SODIUM LEVEL 138 MEQ/L (136-145); THYROID STIMULATING HORMONE 0.266 uIU/ML (0.358-3.740)
[2021-04-19] MEDS ORDERED: MAALOX 30 ML SUSP *UDC PO PRN (23:15)
[2021-04-19] MEDS ORDERED: MOM 30ML SUSPENSION UDC PO PRN (23:15)
[2021-04-19] MEDS ORDERED: OLANZapine ORAL DISINTEGRATING TAB 5MG PO PRN (23:15)
[2021-04-19] MEDS ORDERED: ACETAMINOPHEN TAB 650MG DOSE (2X325MG) PO PRN (23:15)
[2021-04-19 23:55] LABS: AMPHETAMINES LEVEL URINE NEGATIVE (NEGATIVE); BARBITURATES URINE NEGATIVE (NEGATIVE); BENZODIAZEPINES URINE NEGATIVE (NEGATIVE); CANNABINOIDS URINE POSITIVE (NEGATIVE); COCAINE METABOLITE URINE NEGATIVE (NEGATIVE); METHADONE URINE NEGATIVE (NEGATIVE); OPIATES URINE NEGATIVE (NEGATIVE); PHENCYCLIDINE URINE NEGATIVE (NEGATIVE)
[2021-04-19 23:57] LABS: RSV AMPLIFICATION NEGATIVE (NEGATIVE)
[2021-04-20] MEDS ORDERED: DIPH50CA PO (01:10)
[2021-04-20] MEDS ORDERED: AMLO2.5T3 PO (01:10)
[2021-04-20] MEDS ORDERED: HOME MED LIST COMPLETE! XX SCH (01:10)
[2021-04-20] MEDS ORDERED: DIPH25CA32 PO (01:10)
[2021-04-20] MEDS ORDERED: OLAN1TAB20 PO ×2 (01:10)
[2021-04-20 17:14] VITALS: BP 139/93
[2021-04-21] MEDS ORDERED: OLANZapine ORAL DISINTEGRATING TAB 5MG PO PRN (11:05)
[2021-04-21] MEDS: OLANZapine 10 MG TAB PO SCH ×2 (11:19→20:46)
--- NOTE | 2021-04-21 11:54 | MHHPEPDOC ---
General Date Of Admission: Apr 20, 2021 Legal Status: 9.39 Chief Complaint "I don't know why I am here, my brother called the police on me" History of Present Illness HISTORY OF THE PRESENT ILLNESS: Patient is a 45 -year-old Single, Disabled, male, who has a long psychiatric history and is admitted to [facility] for psychotic symptoms as he has been deteriorating since his admission. Patient was brought in on a 9.41 after his brother reported that he was becoming very bizarre and threatening towards him. Patient presents with delusional thinking and uatsdin preoccupations. He is quite tangential and displays an inability to stay on topic. He talks about his son being killed by the Police in [place], talks about religions and "whores" and states that he is going to kill his brother with a gun. My brother lied to the police Per ED REPORT: Pt with Hx of Schizophrenia and prior psych admit to [facility], presents with Police after pt.'s brother called 911 stating that pt has been decompensating and making threats to harm brother(Giulia Jhvaeri [phone]). Pt is poor historian, is quite tangential during interview, pointing at parts of his body and stating "this isn't mine", and believes others have altered parts of his body somehow. Pt [facility] months ago to live with his brother, per brother pt. has long Hx of MH issues including Schizophrenia, has been hosp italized several times in [facility]. Per brother, pt. has not been taking any medications or attending outpt tx since he was d/c'd from [facility] several weeks ago, he adds that pt. has not been sleeping "for days" and has become increasingly bizarre and threatening recently. Brother reports pt. has been "staring into a mirror for hours" at times and states to brother that he is " levitating", believes the [employer] has a 43 million dollar check for him as pt. believes he is "God". Pt also believes that Rap artists owe him "millions" because they stole music from pt., and today pt. told brother that if brother is not "nice" to him he will kill him and "not resurrect" him. PT remains poor historian, cannot answer most questions appropriately, denies SI/HI at this time, and continues to exhibit paranoia/delusions and bizarre ideas. Psychiatric Review of Systems Depression (2 or more weeks): denies María Elena (4 or more days of): denies Psychosis: delusions, paranoia, disorganization PTSD: denies Anxiety: denies Past Psychiatric History Previous Psychiatric Diagnosis: Schizophrenia, Previous Psychiatric Admissions: Numerous hospitalizations Suicide Attempts: Unknown, patient is currently disorganized and scattered in his thinking, unable to ascertain Psychiatric Follow-up: Psychiatric medications: Olanzapine. Past Medical History Medical Problems History of low TSH Unable to obtain this information patient is acutely psychotic Head Injury: No Seizures: No (Unable to ascertain) Hospitalizations: Yes Surgeries: No (Unable to ascertain) Family Medical/Psychiatric HX Medical Problems Unable to obtain, patient is acutely psychotic Psychiatric Disorders: No (Unable to ascertain) Addiction: No (Patient unable to provide information due to acute psychosis) Suicide Attemps/Completions: No (Patient unable to provide information due to his acute psychosis) Addiction History other (History of cannabis use) Social History Unable to ascertain, patient is acutely psychotic, unable to retrieve social history from previous chart as patient presented similarly and was acutely psychotic Childhood: . Abuse/Trauma:. Current Living Situation: Currently living with his brother, moved to the area from [place] approximately 4-1/2 months ago. Education: Employment: Not employed Social Support: Brother Legal: History of incarceration Marital: Single. Mental Status Examination General Appearance: unkempt, disheveled, ds/not appear stated age (He appears older), hospital scubs/clothing Build: average Demeanor: preoccupied Eye Contact: avoidant Activity: average Behavior: cooperative, withdrawn Speech: rapid, other (Nonsensical) Mood: anxious Affect: constricted Thought Process: incoherent, circumstantial, tangential, loose, flight of ideas Thought Content (Delusions): grandiose, persecutory, bizarre, paranoia, delusions Thought Content (Other): preoccupied Thought Content (Aggressive): none reported Perception (Hallucinations): auditory Perception (Other): none reported Cognition (Impairment of): attention/concentration Cognition(Intelligence Est.): other (Unable to ascertain, may be below average) Oriented: Awake, Alert Insight: poor Judgment: Poor Psychosis: Psychotic Perceptions Diagnoses Schizophrenia disorder Rule out schizophrenia, paranoid type Cannabis use disorder History of noncompliance A-FIB/CHADSVASC A-FIB History Current/History of A-Fib/PAF?: No Current PO Anticoag Therapy: No Assessment Patient is a 45 -year-old Single, Disabled, male, who has a long psychiatric history and is admitted to [facility] for psychotic symptoms as he has been deteriorating since his admission. Patient was brought in on a 9.41 after his brother reported that he was becoming very bizarre and threatening towards him. According to old records patient recently moved to the area about 4 months ago in with decompensating at the time of his first admission to this hospital approximately March 13, 2021. On this occasion he presents similarly with psychotic symptoms, auditory hallucinations, uatsdin preoccupations and some grandiosity. Patient is difficult to understand and his evaluation. He has difficulty focusing, has flight of ideas, has hypomanic speech, making delusional statements, religiously preoccupied and homicidal towards his brother. At this time patient is unstable and does not meet criteria for discharge as he appears to be a danger to his brother. Patient to be started on his home medications of olanzapine 10 mg twice daily with an additional 5 mg as needed for agitation maximum dose of 35 mg daily. Patient is noted to be less psychotic than his last hospitalization. We will provide a safe environment, individual and group therapy if patient is appropriate, milieu therapy and medication management with titrations of medications to therapeutic levels. Patient to be discharged when he is stable Initial Treatment Plan 1. Patient was admitted on a [9.39] status. 2. Complete history was obtained. 3. With patients permission, family will be contacted and database will be expanded. 4. Patients medication regimen will be reviewed and changed accordingly. 5. Patient will be provided with protected environment. 6. Patient will be treated with individual, group, and milieu therapies. 7. Patient will receive supportive psych-education. 8. Discharge planning will commence immediately. 9. Outpatient follow-up treatment will be strongly recommended. 10. The initial treatment plan will focus initially on: * Depression. * Risk for suicide. ESTIMATED LENGTH OF STAY: 7-10 DAYS. TIME SPENT COUNSELING AND COORDINATING INITIAL CARE: 60 minutes. Pt Refused Vital Signs Vital Signs Date Time Temp Pulse Resp B/P (MAP) Pulse Ox O2 Delivery O2 Flow Rate FiO2 04/20/21 17:14 139/93 (108) 04/20/21 14:00 97.4 78 20 100 Room Air Medications Scheduled Amlodipine Besylate (Amlodipine Besylate) 2.5 Mg Tablet, 2.5 MG PO QHS, (Reported) Diphenhydramine HCl (Diphenhydramine HCl) 50 Mg Capsule, 50 MG PO BID, (Reported) Olanzapine (Olanzapine) 10 Mg Tablet, 20 MG PO QHS, (Reported) Olanzapine (Olanzapine) 10 Mg Tablet, 10 MG PO DAILY, (Reported) Scheduled PRN Diphenhydramine HCl (Diphenhydramine HCl) 25 Mg Capsule, 75 MG PO QHS PRN for ANXIETY, (Reported) Allergies Coded Allergies: benztropine (Verified Allergy, Unknown, unk, 03/12/21) risperidone (Verified Allergy, Unknown, unk, 03/12/21) ZEYNEP BRADEN NP Apr 21, 2021 10:53
[2021-04-21 17:20] VITALS: BP 143/93
--- NOTE | 2021-04-21 18:43 | HPEPDOC ---
[facility] Medical History & Physical Date of Admission Apr 20, 2021 Date of Service: Apr 21, 2021 History and Physical CHIEF COMPLAINT: PSYCHOSIS HISTORY OF PRESENT ILLNESS: 45-year-old -Bangladeshi male with history of schizophrenia and prior history of bright red blood per rectum with no follow-up admitted to the inpatient mental health unit for psychosis and schizophrenia treatment. Patient denies any chest pain pressure tightness lightheadedness weight gain weight loss fever chills shortness of breath palpitations nausea vomiting diarrhea recurrent bright red blood per rectum melena black tarry stools coffee-ground emesis sore throat headache changes in vision muscle aches joint pains rash dysuria urgency frequency polyuria polydipsia polyphagia. No other acute complaints PAST MEDICAL HISTORY: 1. Schizophrenia. PAST SURGICAL HISTORY: Patient denied any past surgical history SOCIAL HISTORY: Smoked a pack a day for many years social alcohol use FAMILY HISTORY: Father unknown mother CAD of a heart attack ALLERGIES: Please see below. REVIEW OF SYSTEMS: General: Patient denies fevers HEENT: Patient denies headaches Cardiovascular: Patient denies chest pain Respiratory: Patient denies shortness of breath, cough GI: Patient denies abdominal pain, nausea, vomiting, diarrhea : Patient denies increased frequency or pain with urination Extremities: Patient denies swelling or pain in extremities Neurological: Patient denies numbness or tingling in legs Skin: Patient denies any new rashes or lesions. Hematologic: Patient denies any easy bruising. Lymphatic: Patient denies any lumps lumps or bumps in neck, axilla, or groin HOME MEDICATIONS: Please see below. PHYSICAL EXAMINATION: VITAL SIGNS: See below General: No distress awake alert oriented to person place and time answering questions appropriately without pallor cyanosis HEENT: Normocephalic, atraumatic, moist mucous membranes. Neck: No lymphadenopathy or thyromegaly Cardiac: Regular rate and rhythm, no murmurs, normal S1, normal S2 Pulm: Clear to auscultation bilaterally. No wheezes, rhonchi, rales Abd: Nondistended, nontender to palpation, normal bowel sounds Ext: No edema bilateral lower extremities Neuro: Patient was able to move all 4 extremities on command and reported equal sensation light touch in all 4 extremities. Skin: Skin of the head, neck, upper and lower extremities was examined did not show any evidence of rash or wounds. LABORATORY DATA: See below. IMAGING: No imaging is been performed MICROBIOLOGY: Please see below. ASSESSMENT: 45-year-old male Schizophrenia-managed by primary psychiatric team Tobacco abuse-nicotine replacement therapy, smoking cessation counseling Low TSH-check thyroid profile rule out hyperthyroidism Vital Signs Vital Signs Date Time Temp Pulse Resp B/P (MAP) Pulse Ox O2 Delivery O2 Flow Rate FiO2 04/21/21 17:20 98.9 97 16 143/93 (110) 96 Room Air Laboratory Data Labs 24H Laboratory Tests 2 04/21/21 14:45: Coronavirus (COVID-19)(PCR) NEGATIVE Home Medications Scheduled Amlodipine Besylate (Amlodipine Besylate) 2.5 Mg Tablet, 2.5 MG PO QHS Diphenhydramine HCl (Diphenhydramine HCl) 50 Mg Capsule, 50 MG PO BID Olanzapine (Olanzapine) 10 Mg Tablet, 20 MG PO QHS Olanzapine (Olanzapine) 10 Mg Tablet, 10 MG PO DAILY Scheduled PRN Diphenhydramine HCl (Diphenhydramine HCl) 25 Mg Capsule, 75 MG PO QHS PRN for ANXIETY Allergies Coded Allergies: benztropine (Verified Allergy, Unknown, unk, 03/12/21) risperidone (Verified Allergy, Unknown, unk, 03/12/21) A-FIB/CHADSVASC A-FIB History Current/History of A-Fib/PAF?: No Current PO Anticoag Therapy: No Age/Risk Factor Scoring CHADSVASC: CHADSVASC Response (Comments) Value Age Risk Factor Age < 65 years old 0 Gender Risk Factor Male 0 Hx of CHF No 0 Hx of HTN No 0 Hx of Stroke/TIA/or VTE No 0 Hx of Diabetes No 0 Hx of Vascular Disease No 0 Total 0 Treatment Treatment ordered: NONE KIRIT BULLARD MD Apr 21, 2021 17:51
[2021-04-21 19:04] LABS: MAGNESIUM LEVEL 2.1 MG/DL (1.8-2.4); POTASSIUM SERUM 3.9 MEQ/L (3.5-5.1)
[2021-04-21 19:18] LABS: FREE THYROXINE INDEX 3.9 % (1.4-3.8); THYROID STIMULATING HORMONE 0.851 uIU/ML (0.358-3.740); THYROXINE (T4) 11.5 UG/DL (4.5-12.0)
[2021-04-21] MEDS: traZODone 50 MG TAB PO PRN (20:46)
[2021-04-22 06:42] VITALS: BP 165/83
[2021-04-22] MEDS: OLANZapine 10 MG TAB PO SCH ×2 (10:04→20:58)
--- NOTE | 2021-04-22 15:10 | MHIPNPDOC ---
[facility] Progress Note Progress Note DATE OF SERVICE: 04/22/21 HISTORY: 45-year-old male with a history of schizophrenia and medication noncompliance who was admitted for decompensation of his psychosis while at home secondary to not taking his medications. He was admitted and restarted on his previous medications which included olanzapine 20 mg total daily dose, he had cleared well with this at his last admission and was successfully discharged. Today he is pleasant and wandering the unit, religiously preoccupied and wishing people happy holidays as well as blessing them. He denies any complaints at this time and is expansive in his thoughts about judaism, focusing on trying to make sure I understand that Zelalem is Lord and Savior. VITAL SIGNS: See below. NEW TEST RESULTS: None. CURRENT MEDICATIONS: See below. MENTAL STATUS EXAMINATION: Patient is a 45-year old male, who is dressed in hospital clothes, grooming and hygiene appear fair, pleasant and cooperative. Speech: Is normal volume, hyperverbal, difficult to interrupt, regular rate and rhythm. Language skills are intact. Thought processes including: Disorganized, religiously preoccupied. Thought content: Focused on judaism and the idea of Zelalem as savior, pleasant and denies SI or AVH. Abstract reasoning, and computation: Unable to abstract. Description of associations: Loose, mostly focused on his buddhist preoccupation. Description of abnormal or psychotic thoughts: Orthodox preoccupation, disorganization, did not appear internally preoccupied. Judgment: Poor. Insight: Poor. Orientation: X3. Recent and remote memory: Intact. Attention span and concentration: Intact. Mood: All good. Affect: Euthymic, congruent to stated mood and thought content. DIAGNOSES: 1. Schizophrenia. 2. Cannabis use disorder. 3. History of medication noncompliance. ASSESSMENT: Felipe is a 41-year-old man presenting with decompensation of schizophrenia secondary to medication noncompliance. He has a longstanding history of this which clears up rapidly with administration of antipsychotic medications. He however frequently will stop taking his medications once he leaves the hospital, generally he is a pleasant person with a buddhist preoccupation without homicidal or suicidal ideation. Currently he appears somewhat disorganized secondary to his uncontrolled psychosis. Currently would need to remain hospitalized for safety and stabilization. MANAGEMENT PLAN: Continue current medications as prescribed. Would recommend having discussion with patient about switching to a medication such as Invega, Haldol, risperidone, or one of the other long-acting injectables. TIME SPENT: 20 minutes. Vital Signs Vital Signs Date Time Temp Pulse Resp B/P (MAP) Pulse Ox O2 Delivery O2 Flow Rate FiO2 04/22/21 06:42 97.1 100 18 165/83 (110) 100 Room Air Laboratory Data 24H Labs Laboratory Tests 2 04/21/21 18:04: Magnesium Level 2.1, Thyroid Stimulating Hormone (TSH) 0.851, Free Thyroxine Index 3.9H, Thyroxine (T4) 11.5, Triiodothyronine (T3) Uptake 34 CBC/BMP Laboratory Tests 04/21/21 18:04 Current Medications Current Medications Medications (Trade) Dose Ordered Sig/Selene Route PRN Reason Start Time Stop Time Status Last Admin Dose Admin Acetaminophen (Tylenol Tab) 650 mg Q6HP PRN PO HEADACHE or MILD DISCOMFORT 04/19/21 23:15 Al Hydrox/Mg Hydrox/Simethicone (Mylanta) 30 ml Q4HP PRN PO HEARTBURN/INDIGESTION 04/19/21 23:15 Home Med (Home Med List Complete!) ASDIRECTED XX 04/20/21 01:10 04/20/21 01:15 DC Magnesium Hydroxide (Milk Of Magnesia) 30 ml DAILYPRN PRN PO CONSTIPATION 04/19/21 23:15 Olanzapine (ZyPREXA ZYDIS) 5 mg Q6HP PRN PO ANXIETY/AGITATION 04/21/21 11:05 04/21/21 16:15 Olanzapine (ZyPREXA ZYDIS) 10 mg Q4HP PRN PO AGITATION/ANXIETY 04/19/21 23:15 04/21/21 11:06 DC 04/20/21 23:44 Olanzapine (ZyPREXA) 10 mg BID PO 04/21/21 09:00 04/22/21 10:04 Trazodone HCl (Desyrel) 50 mg QHSP PRN PO INSOMNIA 04/19/21 23:15 04/21/21 20:46 Allergies Coded Allergies: benztropine (Verified Allergy, Unknown, unk, 03/12/21) risperidone (Verified Allergy, Unknown, unk, 03/12/21) LASHA EDWARDS MD Apr 22, 2021 15:10
[2021-04-22 18:29] VITALS: BP 149/98
[2021-04-23 06:35] VITALS: BP 149/82
[2021-04-23] MEDS: OLANZapine 10 MG TAB PO SCH ×2 (09:38→20:12)
--- NOTE | 2021-04-23 12:19 | MHIPNPDOC ---
[facility] Progress Note Progress Note DATE OF SERVICE: 04/23/21 HISTORY: see H and P Interval: States he is doing well with medication, does not want any changes, but asks for benadryl for any potential side effects including tight muscles, reports has tolerated in past without allergy. Patient has spent majority of the day lying in bed under his sheets, denies SI, HI or AVH. Continues to be religiously preoccupied. Sleep is good, but reports nightmares, does not want other medications at this time, despite being offered. VITAL SIGNS: See below. NEW TEST RESULTS: None. CURRENT MEDICATIONS: See below. MENTAL STATUS EXAMINATION: Patient is a 45-year old male, who is in no acute distress, dreadlocks, avoidant eye contact, appears older than stated age, in hospital clothing, fair hygiene Speech: Is normal volume, increased rate and amount Language skills are intact. Thought processes including: Disorganized, religiously preoccupied. Thought content: Denies SI, HI. Abstract reasoning, and computation: concrete. Description of associations: concrete Description of abnormal or psychotic thoughts: Judgment: Poor. Insight: Poor. Orientation: X3. Recent and remote memory: Intact. Attention span and concentration: Intact. Mood: "good sir" Affect: blunted, somnolent, mildly anxious, mildly disorganized DIAGNOSES: 1. Schizophrenia. 2. Cannabis use disorder. 3. History of medication noncompliance. ASSESSMENT: Patient continues to be religiously preoccupied, grandiose delusions, not paranoid or internally preoccupied, some disorganized thought process. Needs extended stay for stabilization. MANAGEMENT PLAN: continue medications, continue with therapeutic modalities on the unit, refuses medication alternatives, started prn benadryl TIME SPENT: 15 minutes. Vital Signs Vital Signs Date Time Temp Pulse Resp B/P (MAP) Pulse Ox O2 Delivery O2 Flow Rate FiO2 04/23/21 06:35 98.7 74 18 149/82 (104) 100 Room Air Current Medications Current Medications Medications (Trade) Dose Ordered Sig/Selene Route PRN Reason Start Time Stop Time Status Last Admin Dose Admin Acetaminophen (Tylenol Tab) 650 mg Q6HP PRN PO HEADACHE or MILD DISCOMFORT 04/19/21 23:15 Al Hydrox/Mg Hydrox/Simethicone (Mylanta) 30 ml Q4HP PRN PO HEARTBURN/INDIGESTION 04/19/21 23:15 Home Med (Home Med List Complete!) ASDIRECTED XX 04/20/21 01:10 04/20/21 01:15 DC Magnesium Hydroxide (Milk Of Magnesia) 30 ml DAILYPRN PRN PO CONSTIPATION 04/19/21 23:15 Olanzapine (ZyPREXA ZYDIS) 5 mg Q6HP PRN PO ANXIETY/AGITATION 04/21/21 11:05 04/21/21 16:15 Olanzapine (ZyPREXA ZYDIS) 10 mg Q4HP PRN PO AGITATION/ANXIETY 04/19/21 23:15 04/21/21 11:06 DC 04/20/21 23:44 Olanzapine (ZyPREXA) 10 mg BID PO 04/21/21 09:00 04/23/21 09:38 Trazodone HCl (Desyrel) 50 mg QHSP PRN PO INSOMNIA 04/19/21 23:15 04/21/21 20:46 Allergies Coded Allergies: benztropine (Verified Allergy, Unknown, unk, 03/12/21) risperidone (Verified Allergy, Unknown, unk, 03/12/21) LUCY FLOWER MD Apr 23, 2021 12:19
[2021-04-23 16:09] VITALS: BP 144/80
[2021-04-23] MEDS: diphenhydrAMINE 25MG CAP PO PRN (20:12)
[2021-04-24] MEDS: OLANZapine 10 MG TAB PO SCH ×2 (07:53→20:09)
--- NOTE | 2021-04-24 11:15 | MHIPNPDOC ---
[facility] Progress Note Progress Note DATE OF SERVICE: 04/24/21 HISTORY: see H and P Interval: Patient remians mostly isolative to room, denies psychotic symptoms including hallucinations or paranoia, but is poorly cooperative to interview and lying under the covers. Encouraged to attemd groups. Denies SI/HI. Denies acute physical complaints. VITAL SIGNS: See below. NEW TEST RESULTS: None. CURRENT MEDICATIONS: See below. MENTAL STATUS EXAMINATION: Patient is a 45-year old male, who is in no acute distress, dreadlocks, avoidant eye contact, appears older than stated age, in hospital clothing, fair hygiene Speech: Is normal volume, increased rate and amount Language skills are intact. Thought processes including: Disorganized, religiously preoccupied. Thought content: Denies SI, HI. Abstract reasoning, and computation: concrete. Description of associations: concrete Description of abnormal or psychotic thoughts: Judgment: Poor. Insight: Poor. Orientation: X3. Recent and remote memory: Intact. Attention span and concentration: Intact. Mood: "I'm fine" Affect: somnolent, blunted, withdrawn DIAGNOSES: 1. Schizophrenia. 2. Cannabis use disorder. 3. History of medication noncompliance. ASSESSMENT: Patient continues to be withdrawn, some disorganized thought process. Needs extended stay for stabilization. Does not want medication changes. MANAGEMENT PLAN: continue medications, continue with therapeutic modalities on the unit, refuses medication alternatives, started prn benadryl TIME SPENT: 15 minutes. Vital Signs Vital Signs Date Time Temp Pulse Resp B/P (MAP) Pulse Ox O2 Delivery O2 Flow Rate FiO2 04/23/21 16:09 98.1 88 16 144/80 (101) 98 Room Air Current Medications Current Medications Medications (Trade) Dose Ordered Sig/Selene Route PRN Reason Start Time Stop Time Status Last Admin Dose Admin Acetaminophen (Tylenol Tab) 650 mg Q6HP PRN PO HEADACHE or MILD DISCOMFORT 04/19/21 23:15 Al Hydrox/Mg Hydrox/Simethicone (Mylanta) 30 ml Q4HP PRN PO HEARTBURN/INDIGESTION 04/19/21 23:15 Diphenhydramine HCl (Benadryl) 25 mg Q4HP PRN PO SPASMS 04/23/21 12:30 04/23/21 20:12 Home Med (Home Med List Complete!) ASDIRECTED XX 04/20/21 01:10 04/20/21 01:15 DC Magnesium Hydroxide (Milk Of Magnesia) 30 ml DAILYPRN PRN PO CONSTIPATION 04/19/21 23:15 Olanzapine (ZyPREXA ZYDIS) 5 mg Q6HP PRN PO ANXIETY/AGITATION 04/21/21 11:05 04/21/21 16:15 Olanzapine (ZyPREXA ZYDIS) 10 mg Q4HP PRN PO AGITATION/ANXIETY 04/19/21 23:15 04/21/21 11:06 DC 04/20/21 23:44 Olanzapine (ZyPREXA) 10 mg BID PO 04/21/21 09:00 04/24/21 07:53 Trazodone HCl (Desyrel) 50 mg QHSP PRN PO INSOMNIA 04/19/21 23:15 04/21/21 20:46 Allergies Coded Allergies: benztropine (Verified Allergy, Unknown, unk, 03/12/21) risperidone (Verified Allergy, Unknown, unk, 03/12/21) LUCY FLOWER MD Apr 24, 2021 11:15
[2021-04-24 16:15] VITALS: BP 146/87
[2021-04-24] MEDS: diphenhydrAMINE 25MG CAP PO PRN (20:09)
[2021-04-25 06:27] VITALS: BP 140/65
[2021-04-25] MEDS: OLANZapine 10 MG TAB PO SCH ×2 (08:49→20:42)
[2021-04-25] MEDS: diphenhydrAMINE 25MG CAP PO PRN (20:42)
[2021-04-25] MEDS: traZODone 50 MG TAB PO PRN (20:42)
[2021-04-26] MEDS: OLANZapine 10 MG TAB PO SCH ×2 (09:59→20:21)
--- NOTE | 2021-04-26 14:38 | MHIPNPDOC ---
[facility] Progress Note Progress Note DATE OF SERVICE: 04/26/21 HISTORY: see H and P VITAL SIGNS: See below. NEW TEST RESULTS: None. CURRENT MEDICATIONS: See below. MENTAL STATUS EXAMINATION: Patient is a 45-year old avoidant eye contact, laying in bed, appears older than stated age, dressed in hospital clothing, fair hygiene Speech: Is normal volume, rate, rhythm, tone Language skills are intact. Thought processes including: Disorganized, religiously preoccupied. Thought content: Denies SI, HI. Abstract reasoning, and computation: concrete. Description of associations: concrete Description of abnormal or psychotic thoughts: Judgment: Poor. Insight: Poor. Orientation: X3. Recent and remote memory: Intact. Attention span and concentration: Intact. Mood: "tired" Affect: blunted, somnolent, mildly disorganized DIAGNOSES: 1. Schizophrenia. 2. Cannabis use disorder. 3. History of medication noncompliance. ASSESSMENT: Patient was laying in bed when approached for interview with head under the covers, refused to get out of bed for the interview. He appears to be withdrawn, staff corroborates this as well. He answers questions appropriately, gives short answers but does not elaborate. He states after his last discharge, he was only taking benadryl and trazodone, as he had no ride to the pharmacy to get his olanzapine. He states he would also like housing, as he doesn't get along with his brother, states "I don't want to get into the reasons why." He still appears to be religiously preoccupied and dismissed this ad copy writer, stating "God Bless You." MANAGEMENT PLAN: continue medications, encourage to go to groups and utilize other therapeutic modalities. TIME SPENT: 30minutes. Vital Signs Vital Signs Date Time Temp Pulse Resp B/P (MAP) Pulse Ox O2 Delivery O2 Flow Rate FiO2 04/25/21 06:27 99.4 66 16 140/65 (90) 100 Room Air Current Medications Current Medications Medications (Trade) Dose Ordered Sig/Selene Route PRN Reason Start Time Stop Time Status Last Admin Dose Admin Acetaminophen (Tylenol Tab) 650 mg Q6HP PRN PO HEADACHE or MILD DISCOMFORT 04/19/21 23:15 Al Hydrox/Mg Hydrox/Simethicone (Mylanta) 30 ml Q4HP PRN PO HEARTBURN/INDIGESTION 04/19/21 23:15 Diphenhydramine HCl (Benadryl) 25 mg Q4HP PRN PO SPASMS 04/23/21 12:30 04/25/21 20:42 Home Med (Home Med List Complete!) ASDIRECTED XX 04/20/21 01:10 04/20/21 01:15 DC Magnesium Hydroxide (Milk Of Magnesia) 30 ml DAILYPRN PRN PO CONSTIPATION 04/19/21 23:15 Olanzapine (ZyPREXA ZYDIS) 5 mg Q6HP PRN PO ANXIETY/AGITATION 04/21/21 11:05 04/21/21 16:15 Olanzapine (ZyPREXA ZYDIS) 10 mg Q4HP PRN PO AGITATION/ANXIETY 04/19/21 23:15 04/21/21 11:06 DC 04/20/21 23:44 Olanzapine (ZyPREXA) 10 mg BID PO 04/21/21 09:00 04/26/21 09:59 Trazodone HCl (Desyrel) 50 mg QHSP PRN PO INSOMNIA 04/19/21 23:15 04/25/21 20:42 Allergies Coded Allergies: benztropine (Verified Allergy, Unknown, unk, 03/12/21) risperidone (Verified Allergy, Unknown, unk, 03/12/21) DANIEL CRENSHAW, PMHNP Apr 26, 2021 14:38
[2021-04-26 17:49] VITALS: BP 158/70
[2021-04-26] MEDS: traZODone 50 MG TAB PO PRN (20:21)
[2021-04-26] MEDS: diphenhydrAMINE 25MG CAP PO PRN (20:21)
[2021-04-27 06:54] VITALS: BP 125/71
[2021-04-27] MEDS: OLANZapine 10 MG TAB PO SCH ×2 (09:10→21:41)
--- NOTE | 2021-04-27 09:47 | MHIPNPDOC ---
[facility] Progress Note Progress Note DATE OF SERVICE: 04/27/21 HISTORY OF THE PRESENT ILLNESS: Patient is a 45 -year-old Single, Disabled, male, who has a long psychiatric history and is admitted to [facility] for psychotic symptoms as he has been deteriorating since his admission. Patient was brought in on a 9.41 after his brother reported that he was becoming very bizarre and threatening towards him. Patient presents with delusional thinking and restorationism preoccupations. He is quite tangential and displays an inability to stay on topic. He talks about his son being killed by the Police in [place], talks about religions and "whores" and states that he is going to kill his brother with a gun. My brother lied to the police Per ED REPORT: Pt with Hx of Schizophrenia and prior psych admit to [facility], presents with Police after pt.'s brother called 911 stating that pt has been decompensating and making threats to harm brother(Giulia Jhaveri [phone]). Pt is poor historian, is quite tangential during interview, pointing at parts of his body and stating "this isn't mine", and believes others have altered parts of his body somehow. Pt moved to [facility] several months ago to live with his brother, per brother pt. has long Hx of MH issues including Schizophrenia, has been hospitalized several times in [facility]. Per brother, pt. has not been taking any medications or attending outpt tx since he was d/c'd from [facility] several weeks ago, he adds that pt. has not been sleeping "for days" and has become increasingly bizarre and threatening recently. Brother reports pt. has been "staring into a mirror for hours" at times and states to brother that he is "levitating", believes the [employer] has a 43 million dollar check for him as pt. believes he is "God". Pt also believes that [employer] artists owe him "millions" because they stole music from pt., and today pt. told brother that if brother is not "nice" to him he will kill him and "not resurrect" him. PT remains poor historian, cannot answer most questions appropriately, denies SI/HI at this time, and continues to exhibit paranoia/delusions and bizarre ideas. VITAL SIGNS: See below. CURRENT MEDICATIONS: See below. General Appearance: unkempt, disheveled, ds/not appear stated age (He appears older), hospital scubs/clothing Build: average Demeanor: preoccupied Eye Contact: poor - head under covers but becomes intense when he takes head out of covers Activity: average Behavior: agitated Speech: rapid, other (Nonsensical) Mood: anxious Affect: congruent with mood Thought Process: incoherent, circumstantial, tangential, loose, flight of ideas Thought Content (Delusions): grandiose, persecutory, bizarre, paranoia, delusions, religiously preoccupied Thought Content (Other): preoccupied Thought Content (Aggressive): none reported Perception (Hallucinations): auditory Perception (Other): none reported Cognition (Impairment of): attention/concentration Cognition(Intelligence Est.): other (Unable to ascertain, may be below average) Oriented: Awake, Alert Insight: poor Judgment: Poor Psychosis: Psychotic Perceptions DIAGNOSES: Schizophrenia disorder Rule out schizophrenia, paranoid type Cannabis use disorder History of noncompliance ASSESSMENT: In today's interview, patient agitated and paranoid -again refused to accompany this fiction and nonfiction writer prose to the interview room, states "I'm tired." He continues to express psychotic thoughts. He demands that the hospital be responsible with finding a new place to live, as he refuses to return home to his brother and also gather his belongings from his brother's house, states "the hospital is responsible for all my care." He states, "I know I need these medications, but they make me tired, which is why I'm laying in bed." He continues to express anger towards h is brother, states that his brother refused to bring him to his appointments and to get his medications from the pharmacy towards him. He remains delusional, states "I know I'm God, I don't care if you don't believe me but I know that is why you keep taking my blood." He states, "I am going to release a new Covid so I can let all of you feel my wrath." At this time, patient remains psychotic and unstable and does not met discharge criteria as he is a danger to his brother due to his level of anger. He will continue olanzapine 10 mg po bid and has prn 5 mg zydis as needed for agitation. Will be discharged when stable. MANAGEMENT PLAN: continue all medications TIME SPENT: 30 minutes. Vital Signs Vital Signs Date Time Temp Pulse Resp B/P (MAP) Pulse Ox O2 Delivery O2 Flow Rate FiO2 04/27/21 06:54 99.0 86 18 125/71 (89) 99 Room Air Laboratory Data 24H Labs Laboratory Tests 2 04/26/21 16:15: Coronavirus (COVID-19)(PCR) NEGATIVE Current Medications Current Medications Medications (Trade) Dose Ordered Sig/Selene Route PRN Reason Start Time Stop Time Status Last Admin Dose Admin Acetaminophen (Tylenol Tab) 650 mg Q6HP PRN PO HEADACHE or MILD DISCOMFORT 04/19/21 23:15 Al Hydrox/Mg Hydrox/Simethicone (Mylanta) 30 ml Q4HP PRN PO HEARTBURN/INDIGESTION 04/19/21 23:15 Diphenhydramine HCl (Benadryl) 25 mg Q4HP PRN PO SPASMS 04/23/21 12:30 04/26/21 20:21 Home Med (Home Med List Complete!) ASDIRECTED XX 04/20/21 01:10 04/20/21 01:15 DC Magnesium Hydroxide (Milk Of Magnesia) 30 ml DAILYPRN PRN PO CONSTIPATION 04/19/21 23:15 Olanzapine (ZyPREXA ZYDIS) 5 mg Q6HP PRN PO ANXIETY/AGITATION 04/21/21 11:05 04/21/21 16:15 Olanzapine (ZyPREXA ZYDIS) 10 mg Q4HP PRN PO AGITATION/ANXIETY 04/19/21 23:15 04/21/21 11:06 DC 04/20/21 23:44 Olanzapine (ZyPREXA) 10 mg BID PO 04/21/21 09:00 04/27/21 09:10 Trazodone HCl (Desyrel) 50 mg QHSP PRN PO INSOMNIA 04/19/21 23:15 04/26/21 20:21 Allergies Coded Allergies: benztropine (Verified Allergy, Unknown, unk, 03/12/21) risperidone (Verified Allergy, Unknown, unk, 03/12/21) DANIEL CRENSHAW, PMHNP Apr 27, 2021 09:47
[2021-04-27 18:41] VITALS: BP 141/85
[2021-04-27] MEDS: traZODone 50 MG TAB PO PRN (21:41)
[2021-04-27] MEDS: diphenhydrAMINE 25MG CAP PO PRN (21:41)
[2021-04-28] MEDS: OLANZapine 10 MG TAB PO SCH ×2 (09:02→20:19)
--- NOTE | 2021-04-28 10:37 | MHIPNPDOC ---
[facility] Progress Note Progress Note DATE OF SERVICE: 04/28/21 HHISTORY OF THE PRESENT ILLNESS: Patient is a 45 -year-old Single, Disabled, male, who has a long psychiatric history and is admitted to [facility] for psychotic symptoms as he has been deteriorating since his admission. Patient was brought in on a 9.41 after his brother reported that he was becoming very bizarre and threatening towards him. Patient presents with delusional thinking and scientologist preoccupations. He is quite tangential and displays an inability to stay on topic. He talks about his son being killed by the Police in [place], talks about religions and "whores" and states that he is going to kill his brother with a gun. My brother lied to the police Per ED REPORT: Pt with Hx of Schizophrenia and prior psych admit to [facility], presents with Police after pt.'s brother called 911 stating that pt has been decompensating and making threats to harm brother(Giulia Jhaveri [phone]). Pt is poor historian, is quite tangential during interview, pointing at parts of his body and stating "this isn't mine", and believes others have altered parts of his body somehow. Pt moved to [facility] several months ago to live with his brother, per brother pt. has long Hx of MH issues including Schizophrenia, has been hospitalized several times in [facility]. Per brother, pt. has not been taking any medications or attending outpt tx since he was d/c'd from [facility] several weeks ago, he adds that pt. has not been sleeping "for days" and has become increasingly bizarre and threatening recently. Brother reports pt. has been "staring into a mirror for hours" at times and states to brother that he is "levitating", believes the [employer] has a 43 million dollar check for him as pt. believes he is "God". Pt also believes that [employer] artists owe him "millions" because they stole music from pt., and today pt. told brother that if brother is not "nice" to him he will kill him and "not resurrect" him. PT remains poor historian, cannot answer most questions appropriately, denies SI/HI at this time, and continues to exhibit paranoia/delusions and bizarre ideas. VITAL SIGNS: See below. CURRENT MEDICATIONS: See below. General Appearance: unkempt, disheveled, ds/not appear stated age (He appears older), hospital scubs/clothing Build: average Demeanor: preoccupied Eye Contact: poor - head under covers during interview Activity: average Behavior: agitated Speech: rapid, other (Nonsensical) Mood: anxious Affect: congruent with mood Thought Process: incoherent, circumstantial, tangential, loose, flight of ideas Thought Content (Delusions): grandiose, persecutory, bizarre, paranoia, delusions, religiously preoccupied Thought Content (Other): preoccupied Thought Content (Aggressive): none reported Perception (Hallucinations): auditory Perception (Other): none reported Cognition (Impairment of): attention/concentration Cognition(Intelligence Est.): other (Unable to ascertain, may be below average) Oriented: Awake, Alert Insight: poor Judgment: Poor Psychosis: Psychotic Perceptions DIAGNOSES: Schizophrenia disorder Rule out schizophrenia, paranoid type Cannabis use disorder History of noncompliance ASSESSMENT: In today's interview patient was calm and receptive to interview, although declined to get out of bed, states "I'm tired." He was able to engage in conversation, although replies with short replies. He continues to report that he doesn't want to return to the brother's house, states that he is mad at him. He states, "I need a new place to live and to get my medications because I have to stay on them." He has no supports outside of the hospital besides brother, no agencies involved in his care. Patient unable to establish a safe discharge plan and remains labile - requires further stabilization, will convert to 2pc MANAGEMENT PLAN continue all medications convert 2pc Will coordinate with discharge planners regarding plan of care will discharge when stable TIME SPENT 30 minutes Vital Signs Vital Signs Date Time Temp Pulse Resp B/P (MAP) Pulse Ox O2 Delivery O2 Flow Rate FiO2 04/27/21 18:41 98.1 100 18 141/85 (103) 04/27/21 06:54 99 Room Air Current Medications Current Medications Medications (Trade) Dose Ordered Sig/Selene Route PRN Reason Start Time Stop Time Status Last Admin Dose Admin Acetaminophen (Tylenol Tab) 650 mg Q6HP PRN PO HEADACHE or MILD DISCOMFORT 04/19/21 23:15 Al Hydrox/Mg Hydrox/Simethicone (Mylanta) 30 ml Q4HP PRN PO HEARTBURN/INDIGESTION 04/19/21 23:15 Diphenhydramine HCl (Benadryl) 25 mg Q4HP PRN PO SPASMS 04/23/21 12:30 04/27/21 21:41 Home Med (Home Med List Complete!) ASDIRECTED XX 04/20/21 01:10 04/20/21 01:15 DC Magnesium Hydroxide (Milk Of Magnesia) 30 ml DAILYPRN PRN PO CONSTIPATION 04/19/21 23:15 Olanzapine (ZyPREXA ZYDIS) 5 mg Q6HP PRN PO ANXIETY/AGITATION 04/21/21 11:05 04/21/21 16:15 Olanzapine (ZyPREXA ZYDIS) 10 mg Q4HP PRN PO AGITATION/ANXIETY 04/19/21 23:15 04/21/21 11:06 DC 04/20/21 23:44 Olanzapine (ZyPREXA) 10 mg BID PO 04/21/21 09:00 04/28/21 09:02 Trazodone HCl (Desyrel) 50 mg QHSP PRN PO INSOMNIA 04/19/21 23:15 04/27/21 21:41 Allergies Coded Allergies: benztropine (Verified Allergy, Unknown, unk, 03/12/21) risperidone (Verified Allergy, Unknown, unk, 03/12/21) DANIEL CRENSHAW, PMHNP Apr 28, 2021 10:37
[2021-04-28 18:00] VITALS: BP 151/88
[2021-04-28] MEDS: traZODone 50 MG TAB PO PRN (20:19)
[2021-04-28] MEDS: diphenhydrAMINE 25MG CAP PO PRN (20:19)
[2021-04-29] MEDS: OLANZapine 10 MG TAB PO SCH ×2 (08:27→21:27)
--- NOTE | 2021-04-29 11:41 | MHIPNPDOC ---
[facility] Progress Note Progress Note DATE OF SERVICE: 04/29/21 HHISTORY OF THE PRESENT ILLNESS: Patient is a 45 -year-old Single, Disabled, male, who has a long psychiatric history and is admitted to [facility] for psychotic symptoms as he has been deteriorating since his admission. Patient was brought in on a 9.41 after his brother reported that he was becoming very bizarre and threatening towards him. Patient presents with delusional thinking and cheondoism preoccupations. He is quite tangential and displays an inability to stay on topic. He talks about his son being killed by the Police in [place], talks about religions and "whores" and states that he is going to kill his brother with a gun. My brother lied to the police Per ED REPORT: Pt with Hx of Schizophrenia and prior psych admit to [facility], presents with Police after pt.'s brother called 911 stating that pt has been decompensating and making threats to harm brother(Giulia Jhaveri [phone]). Pt is poor historian, is quite tangential during interview, pointing at parts of his body and stating "this isn't mine", and believes others have altered parts of his body somehow. [facility] live with his brother, per brother pt. has long Hx of MH issues including Schizophrenia, has been hospitalized several times in [facility]. Per brother, pt. has not been taking any medications or attending outpt tx since he was d/c'd from [facility] several weeks ago, he adds that pt. has not been sleeping "for days" and has become increasingly bizarre and threatening recently. Brother reports pt. has been "staring into a mirror for hours" at times and states to brother that he is "levitating", believes the [employer] has a 43 million dollar check for him as pt. believes he is "God". Pt also believes that [employer] artists owe him "millions" because they stole music from pt., and today pt. told brother that if brother is not "nice" to him he will kill him and "not resurrect" him. PT remains poor historian, cannot answer most questions appropriately, denies SI/HI at this time, and continues to exhibit paranoia/delusions and bizarre ideas. VITAL SIGNS: See below. CURRENT MEDICATIONS: See below. General Appearance: unkempt, disheveled, ds/not appear stated age (He appears older), hospital scubs/clothing Build: average Demeanor: average Eye Contact: good Activity: average Behavior: calm and cooperative, enagaged Speech: normal rate rhythm tone Mood: elevated but improving Affect: congruent with mood, smiling appropriately Thought Process: logical linear, paranoid about brother, goal and future oriented Thought Content (Delusions): paranoid about brother Thought Content (Aggressive): none reported Perception (Hallucinations): denies si/hi/ah/vh Perception (Other): none reported Cognition(Intelligence Est.): other (Unable to ascertain, may be below average) Oriented: Awake, Alert, oriented Insight: poor Judgment: Poor Psychosis: denies DIAGNOSES: Schizophrenia disorder Rule out schizophrenia, paranoid type Cannabis use disorder History of noncompliance ASSESSMENT: Felipe approached this check writer salesperson to talk for an interview. He was pleasant and goal oriented, wanting help with a new place to live as he feels that living with his brother is not conducive to his mental health. He is paranoid about brother , states his brother is trying to sabotage his recovery and always put him in a mental health unit or penitentiary. He states his brother refused to get his medications for him or bring him to his appointments. Felipe states he is ok with going to [facility] as homeless and is receptive to a case management referral. He declined a referral to [facility]. HE states, "I know I need to stay on my medications." He is able to engage in logical, goal oriented conversation, does not appear to be responding to internal stimuli. Felipe requests that this check writer salesperson investigate if he has any legal problems at this time and to talk to the brother. Felipe denies si/hi/ah/vh, states "I shouldn't have said that I was going to kill people before, I would never do that - by kill I mean walk away." T this time, Felipe seems to be responding well to olanzapine and psychotic symptoms have decreased. Will work on coordinating safe discharge plan. Felipe is in agreement with this plan Brother, Shankar oreilly, who states he does not want patient to return to his residence MANAGEMENT PLAN continue all medications convert 2pc Will coordinate with discharge planners regarding discarge plan will discharge when stable TIME SPENT 30 minutes Vital Signs Vital Signs Date Time Temp Pulse Resp B/P (MAP) Pulse Ox O2 Delivery O2 Flow Rate FiO2 04/28/21 18:00 97.7 82 18 151/88 (109) 04/27/21 06:54 99 Room Air Current Medications Current Medications Medications (Trade) Dose Ordered Sig/Selene Route PRN Reason Start Time Stop Time Status Last Admin Dose Admin Acetaminophen (Tylenol Tab) 650 mg Q6HP PRN PO HEADACHE or MILD DISCOMFORT 04/19/21 23:15 Al Hydrox/Mg Hydrox/Simethicone (Mylanta) 30 ml Q4HP PRN PO HEARTBURN/INDIGESTION 04/19/21 23:15 Diphenhydramine HCl (Benadryl) 25 mg Q4HP PRN PO SPASMS 04/23/21 12:30 04/28/21 20:19 Home Med (Home Med List Complete!) ASDIRECTED XX 04/20/21 01:10 04/20/21 01:15 DC Magnesium Hydroxide (Milk Of Magnesia) 30 ml DAILYPRN PRN PO CONSTIPATION 04/19/21 23:15 Olanzapine (ZyPREXA ZYDIS) 5 mg Q6HP PRN PO ANXIETY/AGITATION 04/21/21 11:05 04/21/21 16:15 Olanzapine (ZyPREXA ZYDIS) 10 mg Q4HP PRN PO AGITATION/ANXIETY 04/19/21 23:15 04/21/21 11:06 DC 04/20/21 23:44 Olanzapine (ZyPREXA) 10 mg BID PO 04/21/21 09:00 04/29/21 08:27 Trazodone HCl (Desyrel) 50 mg QHSP PRN PO INSOMNIA 04/19/21 23:15 04/28/21 20:19 Allergies Coded Allergies: benztropine (Verified Allergy, Unknown, unk, 03/12/21) risperidone (Verified Allergy, Unknown, unk, 03/12/21) DANIEL CRENSHAW, PMHNP Apr 29, 2021 11:39
[2021-04-29] MEDS: diphenhydrAMINE 25MG CAP PO PRN (21:27)
[2021-04-29] MEDS: traZODone 50 MG TAB PO PRN (21:27)
[2021-04-30] MEDS: OLANZapine 10 MG TAB PO SCH ×2 (08:24→20:13)
[2021-04-30 09:42] LABS: CHOLESTEROL RISK RATIO 4.22 (<5)
--- NOTE | 2021-04-30 09:57 | MHIPNPDOC ---
[facility] Progress Note Progress Note DATE OF SERVICE: 04/30/21 HHISTORY OF THE PRESENT ILLNESS: Patient is a 45 -year-old Single, Disabled, male, who has a long psychiatric history and is admitted to [facility] for psychotic symptoms as he has been deteriorating since his admission. Patient was brought in on a 9.41 after his brother reported that he was becoming very bizarre and threatening towards him. Patient presents with delusional thinking and yazidi preoccupations. He is quite tangential and displays an inability to stay on topic. He talks about his son being killed by the Police in [place], talks about religions and "whores" and states that he is going to kill his brother with a gun. My brother lied to the police Per ED REPORT: Pt with Hx of Schizophrenia and prior psych admit to [facility], presents with Police after pt.'s brother called 911 stating that pt has been decompensating and making threats to harm brother(Giulia Jhaveri [phone]). Pt is poor historian, is quite tangential during interview, pointing at parts of his body and stating "this isn't mine", and believes others have altered parts of his body somehow. Pt moved to [facility] several months ago to live with his brother, per brother pt. has long Hx of MH issues including Schizophrenia, has been hospitalized several times in [facility]. Per brother, pt. has not been taking any medications or attending outpt tx since he was d/c'd from [facility] several weeks ago, he adds that pt. has not been sleeping "for days" and has become increasingly bizarre and threatening recently. Brother reports pt. has been "staring into a mirror for hours" at times and states to brother that he is "levitating", believes the [employer] has a 43 million dollar check for him as pt. believes he is "God". Pt also believes that [employer] artists owe him "millions" because they stole music from pt., and today pt. told brother that if brother is not "nice" to him he will kill him and "not resurrect" him. PT remains poor historian, cannot answer most questions appropriately, denies SI/HI at this time, and continues to exhibit paranoia/delusions and bizarre ideas. VITAL SIGNS: See below. CURRENT MEDICATIONS: See below. General Appearance: unkempt, disheveled, ds/not appear stated age (He appears older), hospital scubs/clothing Build: average Demeanor: average Eye Contact: good Activity: average Behavior: calm and cooperative, enagaged Speech: normal rate rhythm tone Mood: "i'm good" Affect: congruent with mood, laying in bed Thought Process: logical linear, paranoid about brother, goal and future oriented Thought Content (Delusions): paranoid about brother Thought Content (Aggressive): none reported Perception (Hallucinations): denies si/hi/ah/vh Perception (Other): none reported Cognition(Intelligence Est.): other (Unable to ascertain, may be below average) Oriented: Awake, Alert, oriented Insight: poor Judgment: Poor Psychosis: denies DIAGNOSES: Schizophrenia disorder Rule out schizophrenia, paranoid type Cannabis use disorder History of noncompliance ASSESSMENT: Felipe was receptive to meeting for the interview, although he declined to get out of bed. He is pleasant, cooperative, engaged in reality based conversation. Discussed with patient that brother also doesn't want Fito to return to the residence and Felipe was ok with that. Felipe stated he wanted to go to [facility], is goal and future oriented, participating in his discharge plans, as he is concerned with having a place to live and is afraid that he will be discharged without housing, discussed concerns with patient. He is not originally from this area so was receptive to receiving case management services to assist him with appointments, medications, etc. Per project planner, referral will be completed today. Felipe expresses the importance for staying on medications and for following up with outpatient behavioral health. He denies ah/vh/si/hi and cfs and does not appear to be experiencing any psychotic symptoms. He did not express any paranoia about the brother sabotaging his mental health during this interview, which has been a common concern for him. Will likely discharge Monday and Felipe is in agreement with this plan. Brother, Shankar contacted, who states he does not want patient to return to his residence MANAGEMENT PLAN continue all medications probable discharge Monday TIME SPENT 30 minutes Vital Signs Vital Signs Date Time Temp Pulse Resp B/P (MAP) Pulse Ox O2 Delivery O2 Flow Rate FiO2 04/28/21 18:00 97.7 82 18 151/88 (109) 04/27/21 06:54 99 Room Air Laboratory Data 24H Labs Laboratory Tests 2 04/30/21 08:51: Current Medications Current Medications Medications (Trade) Dose Ordered Sig/Selene Route PRN Reason Start Time Stop Time Status Last Admin Dose Admin Acetaminophen (Tylenol Tab) 650 mg Q6HP PRN PO HEADACHE or MILD DISCOMFORT 04/19/21 23:15 Al Hydrox/Mg Hydrox/Simethicone (Mylanta) 30 ml Q4HP PRN PO HEARTBURN/INDIGESTION 04/19/21 23:15 Diphenhydramine HCl (Benadryl) 25 mg Q4HP PRN PO SPASMS 04/23/21 12:30 04/29/21 21:27 Home Med (Home Med List Complete!) ASDIRECTED XX 04/20/21 01:10 04/20/21 01:15 DC Magnesium Hydroxide (Milk Of Magnesia) 30 ml DAILYPRN PRN PO CONSTIPATION 04/19/21 23:15 Olanzapine (ZyPREXA ZYDIS) 5 mg Q6HP PRN PO ANXIETY/AGITATION 04/21/21 11:05 04/21/21 16:15 Olanzapine (ZyPREXA ZYDIS) 10 mg Q4HP PRN PO AGITATION/ANXIETY 04/19/21 23:15 04/21/21 11:06 DC 04/20/21 23:44 Olanzapine (ZyPREXA) 10 mg BID PO 04/21/21 09:00 04/30/21 08:24 Trazodone HCl (Desyrel) 50 mg QHSP PRN PO INSOMNIA 04/19/21 23:15 04/29/21 21:27 Allergies Coded Allergies: benztropine (Verified Allergy, Unknown, unk, 03/12/21) risperidone (Verified Allergy, Unknown, unk, 03/12/21) DANIEL CRENSHAW, PMHNP Apr 30, 2021 09:57
[2021-04-30 18:56] VITALS: BP 133/70
[2021-04-30] MEDS: diphenhydrAMINE 25MG CAP PO PRN (20:13)
[2021-04-30] MEDS: traZODone 50 MG TAB PO PRN (20:13)
[2021-05-01] MEDS: OLANZapine 10 MG TAB PO SCH ×2 (08:35→20:10)
[2021-05-01 17:55] VITALS: BP 146/71
[2021-05-01] MEDS: traZODone 50 MG TAB PO PRN (20:10)
[2021-05-01] MEDS: diphenhydrAMINE 25MG CAP PO PRN (20:10)
[2021-05-02 07:33] VITALS: BP 132/80
[2021-05-02] MEDS: OLANZapine 10 MG TAB PO SCH ×2 (08:43→20:30)
[2021-05-02 19:14] VITALS: BP 153/74
[2021-05-02] MEDS: traZODone 50 MG TAB PO PRN (20:30)
[2021-05-02] MEDS: diphenhydrAMINE 25MG CAP PO PRN (20:30)
[2021-05-03 06:52] VITALS: BP 140/88
[2021-05-03] MEDS: OLANZapine 10 MG TAB PO SCH ×2 (09:39→21:35)
[2021-05-03] MEDS: diphenhydrAMINE 25MG CAP PO PRN ×2 (09:39→21:35)
[2021-05-03] MEDS: traZODone 50 MG TAB PO PRN (21:35)
[2021-05-04 06:46] VITALS: BP 142/78
[2021-05-04] MEDS: OLANZapine 10 MG TAB PO SCH (09:00)
[2021-05-04] MEDS ORDERED: OLAN1TAB20 PO (09:41)
[2021-05-04] MEDS ORDERED: TRAZ-252 PO (09:41)
[2021-05-04] MEDS ORDERED: DIPH25CA32 PO (09:41)
--- NOTE | 2021-05-04 11:35 | MHIPNPDOC ---
[facility] Progress Note Progress Note DATE OF SERVICE: 05/03/21 HISTORY OF THE PRESENT ILLNESS: Patient is a 45 -year-old Single, Disabled, male, who has a long psychiatric history and is admitted to [facility] for psychotic symptoms as he has been deteriorating since his admission. Patient was brought in on a 9.41 after his brother reported that he was becoming very bizarre and threatening towards him. Patient presents with delusional thinking and judaism preoccupations. He is quite tangential and displays an inability to stay on topic. He talks about his son being killed by the Police in [place], talks about religions and "whores" and states that he is going to kill his brother with a gun. My brother lied to the police Per ED REPORT: Pt with Hx of Schizophrenia and prior psych admit to [facility], presents with Police after pt.'s brother called 911 stating that pt has been decompensating and making threats to harm brother(Giulia Jhaveri [phone]). Pt is poor historian, is quite tangential during interview, pointing at parts of his body and stating "this isn't mine", and believes others have altered parts of his body somehow. Pt moved to [facility] several months ago to live with his brother, per brother pt. has long Hx of MH issues including Schizophrenia, has been hospitalized several times in [facility]. Per brother, pt. has not been taking any medications or attending outpt tx since he was d/c'd from [facility] several weeks ago, he adds that pt. has not been sleeping "for days" and has become increasingly bizarre and threatening recently. Brother reports pt. has been "staring into a mirror for hours" at times and states to brother that he is "levitating", believes the Shinto has a 43 million dollar check for him as pt. believes he is "God". Pt also believes that [employer] artists owe him "millions" because they stole music from pt., and today pt. told brother that if brother is not "nice" to him he will kill him and "not resurrect" him. PT remains poor historian, cannot answer most questions appropriately, denies SI/HI at this time, and continues to exhibit paranoia/delusions and bizarre ideas. VITAL SIGNS: See below. CURRENT MEDICATIONS: See below. General Appearance: unkempt, disheveled, ds/not appear stated age (He appears older), hospital scubs/clothing Build: average Demeanor: average Eye Contact: good Activity: average Behavior: calm and cooperative, engaged Speech: normal rate rhythm tone Mood: "i'm good" Affect: congruent with mood, laying in bed Thought Process: logical linear, paranoid about brother, goal and future oriented Thought Content (Delusions): paranoid about brother Thought Content (Aggressive): none reported Perception (Hallucinations): denies si/hi/ah/vh Perception (Other): none reported Cognition(Intelligence Est.): other (Unable to ascertain, may be below average) Oriented: Awake, Alert, oriented Insight: fair, improving Judgment: fair, improving Psychosis: denies DIAGNOSES: Schizophrenia disorder Rule out schizophrenia, paranoid type Cannabis use disorder History of noncompliance ASSESSMENT: Felipe was smiling upon approach for the interview and was receptive to meeting for the interview. He stated he had a good weekend, denies ah/vh/si/hi. He does not appear to be psychotic, mildly paranoid about his brother sabotaging his life and mental health but has voiced this concerns since admission. He states he is looking forward to discharge to [facility] and finding housing. He accepted case management and a [facility] apartment program referral completed. Felipe is active in formulating a safe, reality based discharge plan with staff, voices understanding of the importance of staying on his medication and attending follow up appointments. He reports that his identification is at his brother's house ( certificate and social security card), service planner attempted to call Shankar ventura to see if he could bring in patient's belongings to the the hospital so that he could present them when he discharges to [facility]. However, there was no answer. environmental planner will continue attempts to call patient's brother. Talked to Felipe about discharging tomorrow instead of today due to attempts to contact the brother. He is in agreement with this plan. MANAGEMENT PLAN convert to voluntary continue all medications probable discharge Monday05/04/21 TIME SPENT 30 minutes Vital Signs Vital Signs Date Time Temp Pulse Resp B/P (MAP) Pulse Ox O2 Delivery O2 Flow Rate FiO2 05/03/21 06:52 97.6 78 18 140/88 (105) 97 Room Air Current Medications Current Medications Medications (Trade) Dose Ordered Sig/Selene Route PRN Reason Start Time Stop Time Status Last Admin Dose Admin Acetaminophen (Tylenol Tab) 650 mg Q6HP PRN PO HEADACHE or MILD DISCOMFORT 04/19/21 23:15 Al Hydrox/Mg Hydrox/Simethicone (Mylanta) 30 ml Q4HP PRN PO HEARTBURN/INDIGESTION 04/19/21 23:15 Diphenhydramine HCl (Benadryl) 25 mg Q4HP PRN PO SPASMS 04/23/21 12:30 05/03/21 09:39 Home Med (Home Med List Complete!) ASDIRECTED XX 04/20/21 01:10 04/20/21 01:15 DC Magnesium Hydroxide (Milk Of Magnesia) 30 ml DAILYPRN PRN PO CONSTIPATION 04/19/21 23:15 Olanzapine (ZyPREXA ZYDIS) 5 mg Q6HP PRN PO ANXIETY/AGITATION 04/21/21 11:05 04/21/21 16:15 Olanzapine (ZyPREXA ZYDIS) 10 mg Q4HP PRN PO AGITATION/ANXIETY 04/19/21 23:15 04/21/21 11:06 DC 04/20/21 23:44 Olanzapine (ZyPREXA) 10 mg BID PO 04/21/21 09:00 05/03/21 09:39 Trazodone HCl (Desyrel) 50 mg QHSP PRN PO INSOMNIA 04/19/21 23:15 05/02/21 20:30 Allergies Coded Allergies: benztropine (Verified Allergy, Unknown, unk, 03/12/21) risperidone (Verified Allergy, Unknown, unk, 03/12/21) DANIEL CRENSHAW, PMHNP May 03, 2021 13:15
--- NOTE | 2021-05-04 14:56 | MHDSPDOC ---
[facility] Discharge Summary Discharge Summary DATE OF ADMISSION: Apr 19, 2021 at 23:12 DATE OF DISCHARGE: May 04, 2021 at 1136 DISCHARGE DIAGNOSES: 1. Schizophrenia disorder 2. Rule out schizophrenia, paranoid type 3. Cannabis use disorder 4. History of noncompliance REASON FOR ADMISSION: HISTORY OF THE PRESENT ILLNESS: Patient is a 45 -year-old Single, Disabled, male, who has a long psychiatric history and is admitted to [facility] for psychotic symptoms as he has been deteriorating since his admission. Patient was brought in on a 9.41 after his brother reported that he was becoming very bizarre and threatening towards him. Patient presents with delusional thinking and holiness preoccupations. He is quite tangential and displays an inability to stay on topic. He talks about his son being killed by the Police in [place], talks about religions and "whores" and states that he is going to kill his brother with a gun. My brother lied to the police Per ED REPORT: Pt with Hx of Schizophrenia and prior psych admit to [facility], presents with Po lice after pt.'s brother called 911 stating that pt has been decompensating and making threats to harm brother(Giulia Jhaveri [phone]). Pt is poor historian, is quite tangential during interview, pointing at parts of his body and stating "this isn't mine", and believes others have altered parts of his body somehow. Pt moved to area several months ago to live with his brother, per brother pt. has long Hx of MH issues including Schizophrenia, has been hospitalized several times in [facility]. Per brother, pt. has not been taking any medications or attending outpt tx since he was d/c'd from [facility] several weeks ago, he adds that pt. has not been sleeping "for days" and has become increasingly bizarre and threatening recently. Brother reports pt. has been "staring into a mirror for hours" at times and states to brother that he is "levitating", believes the Anabaptist has a 43 million dollar check for him as pt. believes he is "God". Pt also believes that Rap artists owe him "millions" because they stole music from pt., and today pt. told brother that if brother is not "nice" to him he will kill him and "not resurrect" him. PT remains poor historian, cannot answer most questions appropriately, denies SI/HI at this time, and continues to exhibit paranoia/delusions and bizarre ideas. CONSULTANTS INVOLVED: see hospitalist H&P TREATMENT AND PROGRESS ON THE UNIT: Patient was admitted to the [facility] on a legal status was afforded the following treatment modalities: 1) Individual Therapy 2) Group Therapy 3) Medication Management 4) Milieu Therapy 5) Safe Environment HOSPITAL COURSE: Patient was admitted to [facility] on a legal status. When he arrived on the unit, he was quite psychotic, tangential, labile, angry at times, delusional, religiously preoccupied, and paranoid about his bother, believes his brother was trying to sabotage his life and mental health. However, he was receptive to taking medications, but only agreeable to take olanzapine. [place] nzapine was restarted and patient has been taking olanzapine 10 mg po bid, prn benadryl 25 mg q4h prn for spasms and prn trazodone 50 mg po qhs prn for sleep, all of which he found beneficial. Throughout his stay, mood and altered thoughts significantly improved with treatment. On the day of discharge, Felipe denied depression, anxiety, insomnia, si/hi, hallucinations and delus ions. He reported he felt safe for discharge and will follow up with [facility] and at [facility] for medical follow up. In addition, Felipe was receptive to receiving case management services through care coordination. DISCHARGE ASSESSMENT: In today's interview, patient is alert and oriented x3, pt.s dress is appropriate. His Hygiene and grooming are fair but he is attending to adls. Felipe is receptive to the interview, smiles appropriately on approach and is pleasant and engaged in the interview. He denies depression and anxiety, denies suicidal and homicidal ideation, planning or intent. Denies and is not observed with neto, psychotic symptoms of delusions, bizarre thinking, obsessions, paranoia, ruminations, illogical thoughts, or flight of ideas. Insight and judgement have improved significantly since admission. He is engaged and involved in his discharge planning, motivated and interested in receiving assistance from appropriate outside agencies to continue his mental health treatment. He is discharging to [facility], as he can no longer return to his brother's house after discharge. He is in agreement with this plan. Reinforced with patient need to abstain from alcohol and drugs and remain on psychiatric medications. Felipe reports, "I know I need to stay on my medications - I really need them." At discharge, patient has normal mentation, declines further hospitalization and meets criteria for discharge today. Discussed indications of medications, potential benefits and risks, alternatives (including no treatment) and questions were encouraged and answered. Patient encouraged to return to hospital if symptoms worsen or change and encouraged to call unit if he needs to speak to provider for questions regarding medications or care. Labs obtained while inpatient, indicate that Felipe has high cholesterol - This was discussed with patient who verbalizes understanding of follow up at [facility] to establish pcp. Suicide Risk Assessment: 1) Does the patient wish to be ? No 2) Since your admission, have you had any actual thought of killing yourself? No 3) Since your admission, have you been thinking about how you might do this? No 4) Since your admission, have you had these thoughts and had some intention of acting on them? No 5) Since your admission, have you started to work out or worked out the details of how to kill yourself? No 5A) Do you intent to carry out this plan? NA 6) Have you ever done anything, started anything, or prepared to do anything with any intent to ? No 6A) How long since your admission did you do any of these? NA Mental Status Exam Felipe is a 45 year old male, who is receptive to meeting for the discharge interview. General Appearance: attending to adls, dressed in hospital clothing disheveled in hair, ds/not appear stated age (He appears older), Build: average Demeanor: average Eye Contact: good Activity: average Behavior: calm and cooperative, engaged Speech: normal rate rhythm tone Mood: "i'm good" Affect: congruent with mood, smiles appropriately and spontaneously Thought Process: logical linear, less paranoid, goal and future oriented Thought Content (Delusions): less paranoid about brother Thought Content (Aggressive): none reported Perception (Hallucinations): denies si/hi/ah/vh Perception (Other): none reported Cognition(Intelligence Est.): other (Unable to ascertain, may be below average) Oriented: Awake, Alert, oriented Insight: good Judgment: good Psychosis: denies see med reconciliation PLAN/FOLLOWUP ARRANGEMENTS: [facility] The amount of time spent in the coordination of care for this patient was approximately 30 minutes. ETOH/Disorder Med Rx ETOH/DRUG DISORDER RX: N/A Vital Signs/I&Os Vital Signs Date Time Temp Pulse Resp B/P (MAP) Pulse Ox O2 Delivery O2 Flow Rate FiO2 05/04/21 06:46 98.1 70 17 142/78 (99) 05/03/21 06:52 97 Room Air Laboratory Data Labs 24H Laboratory Tests 2 05/03/21 17:00: Coronavirus (COVID-19)(PCR) NEGATIVE Medications Scheduled Amlodipine Besylate (Amlodipine Besylate) 2.5 Mg Tablet, 2.5 MG PO QHS, (Reported) Olanzapine (Olanzapine) 10 Mg Tablet, 10 MG PO BID for schizophrenia, #14 Scheduled PRN Diphenhydramine HCl (Diphenhydramine HCl) 25 Mg Capsule, 25 MG PO BIDP PRN for SPASMS, #14 Trazodone HCl (Trazodone HCl) 50 Mg Tablet, 50 MG PO QHSP PRN for INSOMNIA, #7 Allergies Coded Allergies: benztropine (Verified Allergy, Unknown, unk, 03/12/21) risperidone (Verified Allergy, Unknown, unk, 03/12/21) DANIEL CRENSHAW, PMHNP May 04, 2021 12:00
== END 2021-05-04 12:04 | disposition home or self-care (01) | DRG 750 ==
LOC: M ED 21:32 → CANBEDREQ 23:00 → M ED INP 23:12 → EDBEDREQ 04-20 12:17 → M PSY 04-20 13:55
PROVIDERS: ADMIT Student in an Organized Health Care Education/Training Program; ATTEND Psychiatry & Neurology Psychiatry
DX: F20.0 Paranoid schizophrenia (principal); Z91.14 Patient's other noncompliance with medication regimen; F17.200 Nicotine dependence, unspecified, uncomplicated; Z91.19 Patient's noncompliance with other medical treatment and regimen; F12.10 Cannabis abuse, uncomplicated; Z79.899 Other long term (current) drug therapy; Z88.8 Allergy status to other drugs, medicaments and biological substances; Z20.822 Contact with and (suspected) exposure to COVID-19

== ENCOUNTER 2021-06-15 14:24 | Inpatient (IN) | payer OTHER ==
[~2021-06-15] VITALS: Ht 172.7 cm; Wt 72.3 kg
[~2021-06-15 14:24] MED LIST changes: +AMLO2.5T3 PO; +TRAZ-252 PO
[2021-06-15] MEDS ORDERED: OLANZapine INTRAMUSCULAR 10MG VIAL IM ONE (14:40)
[2021-06-15] MEDS ORDERED: LORazepam 2 MG/ML VIAL IM ONE (14:40)
[2021-06-15] MEDS ORDERED: LORazepam 2 MG/ML VIAL As Ordered ONE (15:00)
[2021-06-15 16:39] LABS: HEMATOCRIT 40.5 % (42.0-52.0); MEAN CORPUSCULAR HEMOGLOBIN 29.6 pg (27.0-33.0); MEAN CORPUSCULAR HGB CONC 32.1 g/dl (32.0-36.5); MEAN CORPUSCULAR VOLUME 92.3 fl (80.0-96.0); PLATELET COUNT, AUTOMATED 233 10^3/uL (150-450); RED BLOOD COUNT 4.39 10^6/uL (4.30-6.10); WHITE BLOOD COUNT 5.4 10^3/uL (4.0-10.0)
[2021-06-15 17:03] LABS: ACETAMINOPHEN LEVEL < 2.0 UG/ML (10.0-30.0); ALBUMIN 3.2 GM/DL (3.2-5.2); ALT/SGPT 34 U/L (12-78); BILIRUBIN,DIRECT < 0.1 MG/DL (0.0-0.2); BILIRUBIN,TOTAL 0.2 MG/DL (0.2-1.0); BLOOD UREA NITROGEN 15 MG/DL (7-18); CALCIUM LEVEL 8.4 MG/DL (8.5-10.1); CARBON DIOXIDE LEVEL 22 MEQ/L (21-32); CHLORIDE LEVEL 110 MEQ/L (98-107); ETHYL ALCOHOL (ETHANOL) < 0.003 % (0.000-0.010); GLOMERULAR FILTRATION RATE > 60.0 (>60); GLUCOSE, FASTING 82 MG/DL (70-100); POTASSIUM SERUM 3.7 MEQ/L (3.5-5.1); SALICYLATE LEVEL < 1.7 MG/DL (5.0-30.0); SODIUM LEVEL 142 MEQ/L (136-145); THYROID STIMULATING HORMONE 0.367 uIU/ML (0.358-3.740); TOTAL PROTEIN 6.3 GM/DL (6.4-8.2)
[2021-06-15 21:52] LABS: AMPHETAMINES LEVEL URINE NEGATIVE (NEGATIVE); BARBITURATES URINE NEGATIVE (NEGATIVE); BENZODIAZEPINES URINE NEGATIVE (NEGATIVE); CANNABINOIDS URINE POSITIVE (NEGATIVE); COCAINE METABOLITE URINE NEGATIVE (NEGATIVE); METHADONE URINE NEGATIVE (NEGATIVE); OPIATES URINE NEGATIVE (NEGATIVE); PHENCYCLIDINE URINE NEGATIVE (NEGATIVE)
[2021-06-15] MEDS ORDERED: HOME MED LIST COMPLETE! XX SCH (23:15)
[2021-06-16] MEDS ORDERED: MAALOX 30 ML SUSP *UDC PO PRN (03:00)
[2021-06-16] MEDS ORDERED: MOM 30ML SUSPENSION UDC PO PRN (03:00)
[2021-06-16] MEDS: OLANZapine ORAL DISINTEGRATING TAB 5MG PO PRN ×2 (07:10→20:33)
[2021-06-16 14:48] VITALS: BP 165/105
[2021-06-17 06:58] VITALS: BP 185/118
[2021-06-17] MEDS: OLANZapine 10 MG TAB PO SCH ×2 (09:36→20:34)
[2021-06-17] MEDS: traZODone 50 MG TAB PO PRN (20:34)
[2021-06-18 06:34] VITALS: BP 176/92
[2021-06-18] MEDS: OLANZapine 10 MG TAB PO SCH ×2 (08:04→19:56)
[2021-06-18] MEDS ORDERED: diphenhydrAMINE 50MG CAP PO ONE (10:30)
[2021-06-18] MEDS ORDERED: LORazepam 2 MG TAB PO ONE (10:30)
[2021-06-18] MEDS: OLANZapine ORAL DISINTEGRATING TAB 5MG PO PRN (17:04)
[2021-06-19] MEDS: OLANZapine 10 MG TAB PO SCH ×2 (08:04→21:08)
[2021-06-19] MEDS ORDERED: diphenhydrAMINE 50MG CAP PO ONE (08:30)
[2021-06-19] MEDS ORDERED: LORazepam 2 MG TAB PO ONE (08:30)
[2021-06-19] MEDS: traZODone 50 MG TAB PO PRN (21:07)
[2021-06-19] MEDS: ACETAMINOPHEN TAB 650MG DOSE (2X325MG) PO PRN (23:00)
[2021-06-20 10:34] LABS: CHOLESTEROL RISK RATIO 3.278 (<5)
[2021-06-20] MEDS: OLANZapine 10 MG TAB PO SCH ×2 (10:58→20:34)
[2021-06-20] MEDS: traZODone 50 MG TAB PO PRN (20:35)
[2021-06-21 06:45] VITALS: BP 155/65
[2021-06-21] MEDS: OLANZapine 10 MG TAB PO SCH ×2 (08:44→20:25)
[2021-06-21] MEDS: diphenhydrAMINE 50MG CAP PO PRN ×2 (09:09→20:25)
[2021-06-21] MEDS: ACETAMINOPHEN TAB 650MG DOSE (2X325MG) PO PRN (19:07)
[2021-06-21] MEDS: traZODone 50 MG TAB PO PRN (20:25)
[2021-06-22] MEDS: diphenhydrAMINE 50MG CAP PO PRN ×2 (08:51→20:24)
[2021-06-22] MEDS: OLANZapine 10 MG TAB PO SCH ×2 (08:51→20:24)
[2021-06-22] MEDS: traZODone 50 MG TAB PO PRN (20:24)
[2021-06-23] MEDS: OLANZapine 10 MG TAB PO SCH ×2 (10:01→20:32)
[2021-06-23] MEDS: diphenhydrAMINE 50MG CAP PO PRN ×2 (10:09→16:35)
[2021-06-23] MEDS: traZODone 50 MG TAB PO PRN (20:31)
[2021-06-24] MEDS: OLANZapine 10 MG TAB PO SCH ×2 (09:34→20:15)
[2021-06-24] MEDS: diphenhydrAMINE 50MG CAP PO PRN ×2 (09:34→20:15)
[2021-06-24] MEDS: ACETAMINOPHEN TAB 650MG DOSE (2X325MG) PO PRN (15:35)
[2021-06-24] MEDS: traZODone 50 MG TAB PO PRN (20:15)
[2021-06-25] MEDS: OLANZapine 10 MG TAB PO SCH ×2 (08:55→20:47)
[2021-06-25] MEDS: diphenhydrAMINE 50MG CAP PO PRN ×2 (08:55→20:47)
[2021-06-25] MEDS: traZODone 50 MG TAB PO PRN (20:47)
[2021-06-26] MEDS: diphenhydrAMINE 50MG CAP PO PRN ×2 (08:33→21:39)
[2021-06-26] MEDS: OLANZapine 10 MG TAB PO SCH ×2 (08:33→21:39)
[2021-06-26] MEDS: traZODone 50 MG TAB PO PRN (21:39)
[2021-06-27] MEDS: diphenhydrAMINE 50MG CAP PO PRN ×3 (08:46→22:11)
[2021-06-27] MEDS: OLANZapine 10 MG TAB PO SCH ×2 (08:47→20:29)
[2021-06-27] MEDS: traZODone 50 MG TAB PO PRN (20:29)
[2021-06-28] MEDS ORDERED: DIMETHICONE 2% OINTMENT(VANICREAM) 70GM TUBE TOP PRN (09:00)
[2021-06-28] MEDS: OLANZapine 10 MG TAB PO SCH ×2 (09:41→20:33)
[2021-06-28] MEDS: diphenhydrAMINE 50MG CAP PO PRN ×2 (09:42→20:33)
[2021-06-28] MEDS: traZODone 50 MG TAB PO PRN (20:33)
[2021-06-28] MEDS: NEOSPORIN TOP OINT 15GM TOP PRN (20:33)
[2021-06-29] MEDS: OLANZapine 10 MG TAB PO SCH ×2 (08:56→20:40)
[2021-06-29] MEDS: diphenhydrAMINE 50MG CAP PO PRN ×2 (08:57→20:40)
[2021-06-29] MEDS: NEOSPORIN TOP OINT 15GM TOP PRN ×2 (08:59→20:40)
[2021-06-29] MEDS: DIVALPROEX 250MG *ER* TAB PO SCH (20:40)
[2021-06-29] MEDS: traZODone 50 MG TAB PO PRN (20:40)
[2021-06-30] MEDS: OLANZapine 10 MG TAB PO SCH ×2 (08:00→20:56)
[2021-06-30] MEDS: DIVALPROEX 250MG *ER* TAB PO SCH ×2 (08:01→21:00)
[2021-06-30] MEDS: diphenhydrAMINE 50MG CAP PO PRN ×2 (08:01→20:55)
[2021-06-30] MEDS: NEOSPORIN TOP OINT 15GM TOP PRN (09:47)
[2021-06-30] MEDS: traZODone 50 MG TAB PO PRN (20:55)
[2021-07-01] MEDS: diphenhydrAMINE 50MG CAP PO PRN ×2 (08:33→21:17)
[2021-07-01] MEDS: OLANZapine 10 MG TAB PO SCH ×2 (08:33→21:18)
[2021-07-01] MEDS: NEOSPORIN TOP OINT 15GM TOP PRN ×2 (08:34→21:21)
[2021-07-01] MEDS: DIVALPROEX 250MG *ER* TAB PO SCH ×2 (08:37→21:00)
[2021-07-01] MEDS: ACETAMINOPHEN TAB 650MG DOSE (2X325MG) PO PRN (13:52)
[2021-07-01] MEDS: traZODone 50 MG TAB PO PRN (21:18)
[2021-07-02] MEDS: DIVALPROEX 250MG *ER* TAB PO SCH ×2 (09:00→20:44)
[2021-07-02] MEDS: OLANZapine 10 MG TAB PO SCH ×2 (09:00→20:44)
[2021-07-02] MEDS: NEOSPORIN TOP OINT 15GM TOP PRN (17:23)
[2021-07-02] MEDS: traZODone 50 MG TAB PO PRN (20:44)
[2021-07-02] MEDS: diphenhydrAMINE 50MG CAP PO PRN (20:44)
[2021-07-03] MEDS: OLANZapine 10 MG TAB PO SCH ×2 (08:01→20:02)
[2021-07-03] MEDS: diphenhydrAMINE 50MG CAP PO PRN ×2 (08:02→20:02)
[2021-07-03] MEDS: DIVALPROEX 250MG *ER* TAB PO SCH ×2 (08:03→20:02)
[2021-07-03] MEDS: NEOSPORIN TOP OINT 15GM TOP PRN ×2 (08:03→15:35)
[2021-07-03] MEDS: traZODone 50 MG TAB PO PRN (20:02)
[2021-07-04 06:38] VITALS: BP 149/78
[2021-07-04] MEDS: DIVALPROEX 250MG *ER* TAB PO SCH ×2 (08:29→20:57)
[2021-07-04] MEDS: OLANZapine 10 MG TAB PO SCH ×2 (08:29→20:57)
[2021-07-04] MEDS: diphenhydrAMINE 50MG CAP PO PRN ×2 (08:29→20:57)
[2021-07-04] MEDS: traZODone 50 MG TAB PO PRN (20:57)
[2021-07-05] MEDS: OLANZapine 10 MG TAB PO SCH ×2 (09:18→20:52)
[2021-07-05] MEDS: diphenhydrAMINE 50MG CAP PO PRN ×2 (09:19→20:51)
[2021-07-05] MEDS: DIVALPROEX 250MG *ER* TAB PO SCH ×2 (09:19→20:51)
[2021-07-05 18:28] VITALS: BP 150/90
[2021-07-05] MEDS: traZODone 50 MG TAB PO PRN (20:52)
[2021-07-06 06:49] VITALS: BP 131/68
[2021-07-06] MEDS: DIVALPROEX 250MG *ER* TAB PO SCH ×2 (09:52→20:44)
[2021-07-06] MEDS: OLANZapine 10 MG TAB PO SCH (09:52)
[2021-07-06 18:02] VITALS: BP 128/85
[2021-07-06] MEDS: OLANZapine 5 MG TAB PO SCH (20:44)
[2021-07-06] MEDS: traZODone 50 MG TAB PO PRN (20:44)
[2021-07-06] MEDS: diphenhydrAMINE 50MG CAP PO PRN (20:44)
[2021-07-07] MEDS: DIVALPROEX 250MG *ER* TAB PO SCH ×2 (09:59→21:02)
[2021-07-07] MEDS: OLANZapine 10 MG TAB PO SCH (09:59)
[2021-07-07] MEDS: ACETAMINOPHEN TAB 650MG DOSE (2X325MG) PO PRN (09:59)
[2021-07-07 17:53] VITALS: BP 134/77
[2021-07-07] MEDS: OLANZapine 5 MG TAB PO SCH (21:02)
[2021-07-07] MEDS: diphenhydrAMINE 50MG CAP PO PRN (21:02)
[2021-07-07 21:03] VITALS: BP 134/77
[2021-07-07] MEDS: traZODone 50 MG TAB PO PRN (21:03)
[2021-07-08] MEDS: DIVALPROEX 250MG *ER* TAB PO SCH (09:46)
[2021-07-08] MEDS: OLANZapine 10 MG TAB PO SCH (09:46)
[2021-07-08] MEDS ORDERED: TRAZ-252 PO (11:25)
[2021-07-08] MEDS ORDERED: Dimethicone TOP (11:25)
[2021-07-08] MEDS ORDERED: DEPA250T2 PO (11:25)
[2021-07-08] MEDS ORDERED: NEOM28OI TOP (11:25)
[2021-07-08] MEDS ORDERED: OLAN1TAB20 PO (11:25)
[2021-07-08] MEDS ORDERED: AMLO25TA PO (11:25)
[2021-07-08] MEDS ORDERED: OLAN1TAB16 PO (11:25)
== END 2021-07-08 14:00 | disposition home or self-care (01) | DRG 750 ==
LOC: M ED 14:24 → M ED INP 06-16 02:57 → M PSY 06-16 13:55
PROVIDERS: ADMIT Psychiatry & Neurology Psychiatry; ATTEND Psychiatry & Neurology Psychiatry
DX: F20.0 Paranoid schizophrenia (principal); Z91.14 Patient's other noncompliance with medication regimen; I10 Essential (primary) hypertension; Z91.19 Patient's noncompliance with other medical treatment and regimen; F12.10 Cannabis abuse, uncomplicated; Z79.899 Other long term (current) drug therapy; Z88.8 Allergy status to other drugs, medicaments and biological substances; L98.8 Other specified disorders of the skin and subcutaneous tissue

== ENCOUNTER 2021-07-27 05:38 | Inpatient (IN) | payer OTHER ==
[~2021-07-27] VITALS: Ht 172.7 cm; Wt 72.3 kg
[~2021-07-27 05:38] MED LIST changes: +DEPA250T2 PO; +Dimethicone TOP; +NEOM28OI TOP; +OLAN1TAB16 PO
[2021-07-27] MEDS ORDERED: LORazepam 2 MG/ML VIAL IM STA (06:05)
[2021-07-27] MEDS ORDERED: diphenhydrAMINE 50MG/ML VIAL (J1200) IM STA (06:05)
[2021-07-27] MEDS ORDERED: HALOPERIDOL 5MG/ML VIAL (J1630 PER 1) IM STA (06:05)
[2021-07-27 07:07] LABS: HEMATOCRIT 43.3 % (42.0-52.0); MEAN CORPUSCULAR HEMOGLOBIN 29.5 pg (27.0-33.0); MEAN CORPUSCULAR HGB CONC 32.3 g/dl (32.0-36.5); MEAN CORPUSCULAR VOLUME 91.2 fl (80.0-96.0); PLATELET COUNT, AUTOMATED 296 10^3/uL (150-450); RED BLOOD COUNT 4.75 10^6/uL (4.30-6.10); WHITE BLOOD COUNT 12.1 10^3/uL (4.0-10.0)
[2021-07-27] MEDS ORDERED: OLANZapine ORAL DISINTEGRATING TAB 5MG PO ONE (07:15)
[2021-07-27 07:33] LABS: RSV AMPLIFICATION NEGATIVE (NEGATIVE)
[2021-07-27 07:43] LABS: ACETAMINOPHEN LEVEL < 2.0 UG/ML (10.0-30.0); ALBUMIN 3.6 GM/DL (3.2-5.2); ALT/SGPT 44 U/L (12-78); BILIRUBIN,DIRECT 0.2 MG/DL (0.0-0.2); BILIRUBIN,TOTAL 0.6 MG/DL (0.2-1.0); BLOOD UREA NITROGEN 16 MG/DL (7-18); CALCIUM LEVEL 8.8 MG/DL (8.5-10.1); CARBON DIOXIDE LEVEL 23 MEQ/L (21-32); CHLORIDE LEVEL 105 MEQ/L (98-107); CREATININE FOR GFR 0.87 MG/DL (0.70-1.30); ETHYL ALCOHOL (ETHANOL) < 0.003 % (0.000-0.010); GLOMERULAR FILTRATION RATE > 60.0 (>60); GLUCOSE, FASTING 88 MG/DL (70-100); SALICYLATE LEVEL 2.2 MG/DL (5.0-30.0); SODIUM LEVEL 140 MEQ/L (136-145); THYROID STIMULATING HORMONE 0.215 uIU/ML (0.358-3.740); TOTAL PROTEIN 7.2 GM/DL (6.4-8.2)
[2021-07-27 13:42] LABS: AMPHETAMINES LEVEL URINE NEGATIVE (NEGATIVE); BARBITURATES URINE NEGATIVE (NEGATIVE); BENZODIAZEPINES URINE NEGATIVE (NEGATIVE); CANNABINOIDS URINE POSITIVE (NEGATIVE); COCAINE METABOLITE URINE NEGATIVE (NEGATIVE); METHADONE URINE NEGATIVE (NEGATIVE); OPIATES URINE NEGATIVE (NEGATIVE); PHENCYCLIDINE URINE NEGATIVE (NEGATIVE)
[2021-07-27] MEDS ORDERED: MAALOX 30 ML SUSP *UDC PO PRN (14:05)
[2021-07-27] MEDS ORDERED: MOM 30ML SUSPENSION UDC PO PRN (14:05)
[2021-07-27] MEDS ORDERED: ACETAMINOPHEN TAB 650MG DOSE (2X325MG) PO PRN (14:05)
[2021-07-27] MEDS ORDERED: OLAN1TAB20 PO (14:29)
[2021-07-27] MEDS ORDERED: DIVA250T7 PO (14:29)
[2021-07-27] MEDS ORDERED: OLAN15TA13 PO (14:29)
[2021-07-27] MEDS ORDERED: TRAZ-252 PO (14:29)
[2021-07-27] MEDS ORDERED: DIPH25CA32 PO (14:29)
[2021-07-27] MEDS ORDERED: AMLO2.5T3 PO (14:29)
[2021-07-27] MEDS ORDERED: HOME MED LIST COMPLETE! XX SCH (14:30)
[2021-07-27] MEDS: OLANZapine 5 MG TAB PO SCH (21:00)
[2021-07-27] MEDS: DIVALPROEX 250MG *ER* TAB PO SCH (21:00)
[2021-07-28] MEDS ORDERED: LORazepam 2 MG/ML VIAL IM STA ×2 (03:01→03:55)
[2021-07-28] MEDS ORDERED: diphenhydrAMINE 50MG/ML VIAL (J1200) IM STA ×2 (03:01→03:55)
[2021-07-28] MEDS ORDERED: HALOPERIDOL 5MG/ML VIAL (J1630 PER 1) IM STA ×2 (03:01→03:55)
[2021-07-28] MEDS: DIVALPROEX 250MG *ER* TAB PO SCH ×2 (09:00→20:03)
[2021-07-28] MEDS: OLANZapine 10 MG TAB PO SCH (09:00)
[2021-07-28 16:16] VITALS: BP 139/85
[2021-07-28] MEDS: diphenhydrAMINE 25MG CAP PO PRN (20:01)
[2021-07-28] MEDS: OLANZapine 5 MG TAB PO SCH (20:02)
[2021-07-28] MEDS: traZODone 50 MG TAB PO PRN (20:04)
[2021-07-29] MEDS: diphenhydrAMINE 25MG CAP PO PRN ×2 (08:19→21:50)
[2021-07-29] MEDS: OLANZapine 10 MG TAB PO SCH (08:19)
[2021-07-29] MEDS: DIVALPROEX 250MG *ER* TAB PO SCH ×2 (09:00→21:00)
[2021-07-29] MEDS ORDERED: OLANZapine ORAL DISINTEGRATING TAB 5MG PO PRN (11:40)
[2021-07-29 19:07] VITALS: BP 148/93
[2021-07-29] MEDS: traZODone 50 MG TAB PO PRN (21:49)
[2021-07-29] MEDS: OLANZapine 5 MG TAB PO SCH (22:09)
[2021-07-30 06:10] VITALS: BP 182/80
[2021-07-30] MEDS: OLANZapine 10 MG TAB PO SCH (08:19)
[2021-07-30] MEDS: diphenhydrAMINE 25MG CAP PO PRN ×2 (08:19→20:15)
[2021-07-30] MEDS: cloNIDine 0.1MG TABLET PO SCH ×2 (09:00→20:17)
[2021-07-30] MEDS: traZODone 50 MG TAB PO PRN (20:15)
[2021-07-30] MEDS: DIVALPROEX 250MG *ER* TAB PO SCH (20:17)
[2021-07-30] MEDS: OLANZapine 5 MG TAB PO SCH (20:17)
[2021-07-31] MEDS: cloNIDine 0.1MG TABLET PO SCH ×2 (08:19→20:26)
[2021-07-31] MEDS: OLANZapine 10 MG TAB PO SCH (08:22)
[2021-07-31] MEDS: diphenhydrAMINE 25MG CAP PO PRN ×2 (08:22→20:26)
[2021-07-31 16:41] VITALS: BP 143/80
[2021-07-31] MEDS: DIVALPROEX 250MG *ER* TAB PO SCH (20:25)
[2021-07-31] MEDS: traZODone 50 MG TAB PO PRN (20:26)
[2021-07-31] MEDS: OLANZapine 5 MG TAB PO SCH (20:26)
[2021-08-01 06:35] VITALS: BP 156/83
[2021-08-01] MEDS: OLANZapine 10 MG TAB PO SCH (08:49)
[2021-08-01] MEDS: diphenhydrAMINE 25MG CAP PO PRN ×2 (08:49→20:57)
[2021-08-01] MEDS: cloNIDine 0.1MG TABLET PO SCH ×2 (08:51→20:58)
[2021-08-01] MEDS: DIVALPROEX 250MG *ER* TAB PO SCH (20:59)
[2021-08-01] MEDS: OLANZapine 5 MG TAB PO SCH (21:00)
[2021-08-01] MEDS: traZODone 50 MG TAB PO PRN (21:00)
[2021-08-02 07:06] VITALS: BP 142/72
[2021-08-02] MEDS: diphenhydrAMINE 25MG CAP PO PRN ×2 (08:02→20:25)
[2021-08-02] MEDS: OLANZapine 10 MG TAB PO SCH (08:03)
[2021-08-02] MEDS: cloNIDine 0.1MG TABLET PO SCH ×2 (09:00→20:27)
[2021-08-02] MEDS ORDERED: BENZTROPINE 1 MG TAB PO SCH (10:40)
[2021-08-02] MEDS ORDERED: diphenhydrAMINE 25MG CAP PO PRN (10:55)
[2021-08-02 18:23] VITALS: BP 140/82
[2021-08-02] MEDS: DIVALPROEX 250MG *ER* TAB PO SCH (20:25)
[2021-08-02] MEDS: traZODone 50 MG TAB PO PRN (20:26)
[2021-08-02] MEDS: OLANZapine 5 MG TAB PO SCH (20:27)
[2021-08-03 06:56] VITALS: BP 167/86
[2021-08-03] MEDS: diphenhydrAMINE 25MG CAP PO PRN ×2 (08:57→22:18)
[2021-08-03] MEDS: OLANZapine 10 MG TAB PO SCH (08:57)
[2021-08-03] MEDS: cloNIDine 0.1MG TABLET PO SCH ×2 (08:57→22:25)
[2021-08-03] MEDS: DIVALPROEX 250MG *ER* TAB PO SCH (22:18)
[2021-08-03] MEDS: OLANZapine 5 MG TAB PO SCH (22:24)
[2021-08-04] MEDS: cloNIDine 0.1MG TABLET PO SCH ×2 (09:00→22:17)
[2021-08-04] MEDS: OLANZapine 10 MG TAB PO SCH (10:30)
[2021-08-04] MEDS: diphenhydrAMINE 25MG CAP PO PRN ×2 (10:30→22:18)
[2021-08-04] MEDS: traZODone 50 MG TAB PO PRN (22:17)
[2021-08-04] MEDS: OLANZapine 5 MG TAB PO SCH (22:17)
[2021-08-04] MEDS: DIVALPROEX 250MG *ER* TAB PO SCH (22:18)
[2021-08-05] MEDS: cloNIDine 0.1MG TABLET PO SCH ×2 (09:19→21:05)
[2021-08-05] MEDS: OLANZapine 10 MG TAB PO SCH (09:19)
[2021-08-05 18:07] VITALS: BP 139/75
[2021-08-05] MEDS: DIVALPROEX 250MG *ER* TAB PO SCH (21:04)
[2021-08-05] MEDS: diphenhydrAMINE 25MG CAP PO PRN (21:04)
[2021-08-05] MEDS: OLANZapine 5 MG TAB PO SCH (21:05)
[2021-08-06] MEDS: OLANZapine 10 MG TAB PO SCH (08:53)
[2021-08-06] MEDS: cloNIDine 0.1MG TABLET PO SCH ×2 (08:53→23:50)
[2021-08-06] MEDS: diphenhydrAMINE 25MG CAP PO PRN (08:54)
[2021-08-06] MEDS: DIVALPROEX 250MG *ER* TAB PO SCH (23:49)
[2021-08-06] MEDS: traZODone 50 MG TAB PO PRN (23:50)
[2021-08-06] MEDS: OLANZapine 5 MG TAB PO SCH (23:50)
[2021-08-07 07:11] VITALS: BP 122/57
[2021-08-07] MEDS: cloNIDine 0.1MG TABLET PO SCH ×2 (09:00→21:19)
[2021-08-07] MEDS: OLANZapine 10 MG TAB PO SCH (09:57)
[2021-08-07] MEDS: diphenhydrAMINE 25MG CAP PO PRN (09:58)
[2021-08-07] MEDS: DIVALPROEX 250MG *ER* TAB PO SCH (21:18)
[2021-08-07] MEDS: OLANZapine 5 MG TAB PO SCH (21:18)
[2021-08-07] MEDS: traZODone 50 MG TAB PO PRN (21:19)
[2021-08-08 06:40] VITALS: BP 129/69
[2021-08-08] MEDS: cloNIDine 0.1MG TABLET PO SCH ×2 (09:00→20:57)
[2021-08-08] MEDS: OLANZapine 10 MG TAB PO SCH (09:59)
[2021-08-08] MEDS: diphenhydrAMINE 25MG CAP PO PRN ×2 (09:59→20:56)
[2021-08-08] MEDS: DIVALPROEX 250MG *ER* TAB PO SCH (20:52)
[2021-08-08] MEDS: traZODone 50 MG TAB PO PRN (20:56)
[2021-08-08] MEDS: OLANZapine 5 MG TAB PO SCH (20:57)
[2021-08-09] MEDS: cloNIDine 0.1MG TABLET PO SCH ×2 (09:00→21:24)
[2021-08-09] MEDS: diphenhydrAMINE 25MG CAP PO PRN ×2 (09:40→21:19)
[2021-08-09] MEDS: OLANZapine 10 MG TAB PO SCH (09:40)
[2021-08-09] MEDS: OLANZapine 5 MG TAB PO SCH (21:18)
[2021-08-09] MEDS: traZODone 50 MG TAB PO PRN (21:18)
[2021-08-09] MEDS: DIVALPROEX 250MG *ER* TAB PO SCH (21:19)
[2021-08-10] MEDS: diphenhydrAMINE 25MG CAP PO PRN ×2 (09:37→20:37)
[2021-08-10] MEDS: OLANZapine 10 MG TAB PO SCH (09:38)
[2021-08-10] MEDS: cloNIDine 0.1MG TABLET PO SCH ×2 (09:38→20:33)
[2021-08-10] MEDS: OLANZapine 5 MG TAB PO SCH (20:33)
[2021-08-10] MEDS: DIVALPROEX 250MG *ER* TAB PO SCH (20:34)
[2021-08-10] MEDS: traZODone 50 MG TAB PO PRN (20:37)
[2021-08-11] MEDS: cloNIDine 0.1MG TABLET PO SCH ×2 (09:42→20:52)
[2021-08-11] MEDS: OLANZapine 10 MG TAB PO SCH (09:42)
[2021-08-11] MEDS: diphenhydrAMINE 25MG CAP PO PRN (20:50)
[2021-08-11] MEDS: OLANZapine 5 MG TAB PO SCH (20:51)
[2021-08-11] MEDS: traZODone 50 MG TAB PO PRN (20:51)
[2021-08-11] MEDS: DIVALPROEX 250MG *ER* TAB PO SCH (20:53)
[2021-08-12] MEDS: cloNIDine 0.1MG TABLET PO SCH ×2 (09:00→20:56)
[2021-08-12] MEDS: OLANZapine 10 MG TAB PO SCH (10:46)
[2021-08-12] MEDS: diphenhydrAMINE 25MG CAP PO PRN ×2 (10:46→20:54)
[2021-08-12 19:04] VITALS: BP 148/80
[2021-08-12] MEDS: traZODone 50 MG TAB PO PRN (20:55)
[2021-08-12] MEDS: OLANZapine 5 MG TAB PO SCH (20:55)
[2021-08-12] MEDS: DIVALPROEX 250MG *ER* TAB PO SCH (20:56)
[2021-08-13] MEDS: OLANZapine 10 MG TAB PO SCH (09:48)
[2021-08-13 09:49] VITALS: BP 141/84
[2021-08-13] MEDS: diphenhydrAMINE 25MG CAP PO PRN (09:49)
[2021-08-13] MEDS: cloNIDine 0.1MG TABLET PO SCH (09:49)
[2021-08-13] MEDS ORDERED: CLONI1TA PO (10:51)
[2021-08-13] MEDS ORDERED: DEPA500T2 PO (10:51)
[2021-08-13] MEDS ORDERED: TRAZ-252 PO (10:51)
[2021-08-13] MEDS ORDERED: DEPA250T2 PO (10:51)
[2021-08-13] MEDS ORDERED: HALO1TAB19 PO (10:51)
[2021-08-13] MEDS ORDERED: OLAN1TAB20 PO (10:51)
[2021-08-13] MEDS ORDERED: OLAN15TA13 PO (10:51)
== END 2021-08-13 13:28 | disposition home or self-care (01) | DRG 750 ==
LOC: M ED 05:38 → M ED INP 14:03 → M PSY 15:50
PROVIDERS: ADMIT Student in an Organized Health Care Education/Training Program; ATTEND Student in an Organized Health Care Education/Training Program
DX: F25.0 Schizoaffective disorder, bipolar type (principal); Z59.00 Homelessness unspecified; F12.20 Cannabis dependence, uncomplicated; Z91.19 Patient's noncompliance with other medical treatment and regimen; Z78.1 Physical restraint status; E03.9 Hypothyroidism, unspecified; I10 Essential (primary) hypertension; Z20.822 Contact with and (suspected) exposure to COVID-19; Z79.899 Other long term (current) drug therapy; Z88.8 Allergy status to other drugs, medicaments and biological substances; Z91.14 Patient's other noncompliance with medication regimen

== ENCOUNTER 2021-09-04 05:12 | Inpatient (IN) | payer OTHER ==
[~2021-09-04] VITALS: Ht 172.7 cm; Wt 73.2 kg
[~2021-09-04 05:12] MED LIST changes: +CLONI1TA PO; +DEPA500T2 PO; +DIVA250T7 PO; +HALO1TAB19 PO; +OLAN15TA13 PO
[2021-09-04 06:02] LABS: HEMATOCRIT 43.4 % (42.0-52.0); HEMOGLOBIN 14.4 g/dl (13.5-17.5); MEAN CORPUSCULAR HEMOGLOBIN 31.1 pg (27.0-33.0); MEAN CORPUSCULAR HGB CONC 33.2 g/dl (32.0-36.5); MEAN CORPUSCULAR VOLUME 93.7 fl (80.0-96.0); PLATELET COUNT, AUTOMATED 342 10^3/uL (150-450); RED BLOOD COUNT 4.63 10^6/uL (4.30-6.10); WHITE BLOOD COUNT 11.1 10^3/uL (4.0-10.0)
[2021-09-04 06:35] LABS: ACETAMINOPHEN LEVEL < 2.0 UG/ML (10.0-30.0); ALBUMIN 3.5 GM/DL (3.2-5.2); ALT/SGPT 35 U/L (12-78); BILIRUBIN,DIRECT < 0.1 MG/DL (0.0-0.2); BILIRUBIN,TOTAL 0.2 MG/DL (0.2-1.0); BLOOD UREA NITROGEN 9 MG/DL (7-18); CALCIUM LEVEL 8.8 MG/DL (8.5-10.1); CARBON DIOXIDE LEVEL 30 MEQ/L (21-32); CHLORIDE LEVEL 104 MEQ/L (98-107); CREATININE FOR GFR 0.82 MG/DL (0.70-1.30); ETHYL ALCOHOL (ETHANOL) < 0.003 % (0.000-0.010); GLOMERULAR FILTRATION RATE > 60.0 (>60); GLUCOSE, FASTING 95 MG/DL (70-100); POTASSIUM SERUM 4.4 MEQ/L (3.5-5.1); SODIUM LEVEL 138 MEQ/L (136-145); THYROID STIMULATING HORMONE 0.757 uIU/ML (0.358-3.740); TOTAL PROTEIN 6.8 GM/DL (6.4-8.2); VALPROIC ACID (DEPAKOTE) < 3.0 UG/ML (50.0-100.0)
[2021-09-04 06:47] LABS: RSV AMPLIFICATION NEGATIVE (NEGATIVE)
[2021-09-04 07:19] LABS: AMPHETAMINES LEVEL URINE NEGATIVE (NEGATIVE); BARBITURATES URINE NEGATIVE (NEGATIVE); BENZODIAZEPINES URINE NEGATIVE (NEGATIVE); CANNABINOIDS URINE POSITIVE (NEGATIVE); COCAINE METABOLITE URINE NEGATIVE (NEGATIVE); METHADONE URINE NEGATIVE (NEGATIVE); OPIATES URINE NEGATIVE (NEGATIVE); PHENCYCLIDINE URINE NEGATIVE (NEGATIVE)
[2021-09-04] MEDS ORDERED: TRAZ-252 PO (08:47)
[2021-09-04] MEDS ORDERED: OLAN1TAB20 PO (08:47)
[2021-09-04] MEDS ORDERED: DIVA250T7 PO (08:47)
[2021-09-04] MEDS ORDERED: OLAN15TA13 PO (08:47)
[2021-09-04] MEDS ORDERED: HALO1TAB19 PO (08:47)
[2021-09-04] MEDS ORDERED: AMLO2.5T3 PO (08:47)
[2021-09-04] MEDS ORDERED: CLONI1TA PO (08:47)
[2021-09-04] MEDS ORDERED: DIVA500T9 PO (08:47)
[2021-09-04] MEDS ORDERED: DIPH25CA32 PO (08:47)
[2021-09-04] MEDS ORDERED: COMMENTS (08:49)
[2021-09-04] MEDS ORDERED: HOME MED LIST COMPLETE! XX SCH (08:50)
[2021-09-04] MEDS ORDERED: LORazepam 2 MG/ML VIAL IM ONE (15:35)
[2021-09-04] MEDS ORDERED: diphenhydrAMINE 50MG/ML VIAL (J1200) IM ONE (15:35)
[2021-09-04] MEDS ORDERED: HALOPERIDOL 5MG/ML VIAL (J1630 PER 1) IM ONE (15:35)
[2021-09-05] MEDS ORDERED: diphenhydrAMINE 25MG CAP PO ONE (06:40)
[2021-09-05] MEDS ORDERED: OLANZapine 10 MG TAB PO ONE (06:40)
[2021-09-05] MEDS ORDERED: diphenhydrAMINE 25MG CAP PO PRN (07:50)
[2021-09-05] MEDS ORDERED: traZODone 50 MG TAB PO PRN (07:50)
[2021-09-05] MEDS: OLANZapine 10 MG TAB PO SCH (09:20)
[2021-09-05] MEDS ORDERED: LORazepam 2 MG/ML VIAL IM ONE (14:45)
[2021-09-05] MEDS ORDERED: diphenhydrAMINE 50MG/ML VIAL (J1200) IM ONE (14:45)
[2021-09-05] MEDS ORDERED: OLANZapine INTRAMUSCULAR 10MG VIAL IM ONE (14:45)
[2021-09-05] MEDS ORDERED: DIVALPROEX 250MG *ER* TAB PO SCH ×2 (21:00)
[2021-09-05] MEDS ORDERED: cloNIDine 0.1MG TABLET PO SCH (21:00)
[2021-09-05] MEDS ORDERED: OLANZapine 5 MG TAB PO SCH (21:00)
[2021-09-06] MEDS: OLANZapine 10 MG TAB PO SCH (09:25)
[2021-09-06] MEDS ORDERED: MOM 30ML SUSPENSION UDC PO PRN (13:05)
[2021-09-06] MEDS ORDERED: traZODone 50 MG TAB PO PRN (13:05)
[2021-09-06] MEDS ORDERED: MAALOX 30 ML SUSP *UDC PO PRN (13:05)
[2021-09-06] MEDS ORDERED: IBUPROFEN 400MG TAB PO PRN (13:05)
[2021-09-06] MEDS: DIVALPROEX 250MG *ER* TAB PO SCH (20:00)
[2021-09-06] MEDS: cloNIDine 0.1MG TABLET PO SCH (20:00)
[2021-09-06] MEDS: OLANZapine 5 MG TAB PO SCH (20:01)
[2021-09-06] MEDS: diphenhydrAMINE 25MG CAP PO PRN (20:01)
[2021-09-06] MEDS ORDERED: DIVALPROEX 500MG *ER* TAB PO SCH (21:00)
[2021-09-07] MEDS: NICOTINE 21MG/24HR 1 EA TRANSDERMAL TD SCH (09:00)
[2021-09-07] MEDS: OLANZapine 10 MG TAB PO SCH (09:04)
[2021-09-07] MEDS: diphenhydrAMINE 25MG CAP PO PRN ×2 (09:04→20:07)
[2021-09-07 20:02] VITALS: BP 175/105
[2021-09-07] MEDS: OLANZapine 5 MG TAB PO SCH (20:06)
[2021-09-07] MEDS: cloNIDine 0.1MG TABLET PO SCH ×2 (20:06→20:17)
[2021-09-07] MEDS: DIVALPROEX 250MG *ER* TAB PO SCH ×2 (20:07→20:17)
[2021-09-08] MEDS: OLANZapine 10 MG TAB PO SCH (08:04)
[2021-09-08] MEDS: diphenhydrAMINE 25MG CAP PO PRN ×2 (08:04→20:40)
[2021-09-08] MEDS: NICOTINE 21MG/24HR 1 EA TRANSDERMAL TD SCH (08:58)
[2021-09-08] MEDS: OLANZapine 5 MG TAB PO SCH (20:40)
[2021-09-08] MEDS: cloNIDine 0.1MG TABLET PO SCH (20:41)
[2021-09-08] MEDS: DIVALPROEX 250MG *ER* TAB PO SCH (20:41)
[2021-09-09] MEDS: OLANZapine 10 MG TAB PO SCH (08:24)
[2021-09-09] MEDS: diphenhydrAMINE 25MG CAP PO PRN ×2 (08:24→20:38)
[2021-09-09 08:50] VITALS: BP 140/78
[2021-09-09] MEDS: NICOTINE 21MG/24HR 1 EA TRANSDERMAL TD SCH (09:00)
[2021-09-09] MEDS ORDERED: cloNIDine 0.1MG TABLET PO ONE (11:25)
[2021-09-09 18:48] VITALS: BP 140/80
[2021-09-09] MEDS: OLANZapine 5 MG TAB PO SCH (20:38)
[2021-09-09] MEDS: cloNIDine 0.1MG TABLET PO SCH (20:38)
[2021-09-09] MEDS: DIVALPROEX 250MG *ER* TAB PO SCH (20:40)
[2021-09-10] MEDS: NICOTINE 21MG/24HR 1 EA TRANSDERMAL TD SCH (08:05)
[2021-09-10] MEDS: OLANZapine 10 MG TAB PO SCH (08:05)
[2021-09-10] MEDS: diphenhydrAMINE 25MG CAP PO PRN ×2 (08:05→20:23)
[2021-09-10] MEDS: OLANZapine 5 MG TAB PO SCH (20:23)
[2021-09-10] MEDS: DIVALPROEX 250MG *ER* TAB PO SCH (20:24)
[2021-09-10] MEDS: cloNIDine 0.1MG TABLET PO SCH (20:24)
[2021-09-11] MEDS: NICOTINE 21MG/24HR 1 EA TRANSDERMAL TD SCH (08:10)
[2021-09-11] MEDS: OLANZapine 10 MG TAB PO SCH (08:11)
[2021-09-11] MEDS: diphenhydrAMINE 25MG CAP PO PRN ×2 (08:12→20:32)
[2021-09-11] MEDS: DIVALPROEX 250MG *ER* TAB PO SCH (20:33)
[2021-09-11] MEDS: OLANZapine 5 MG TAB PO SCH (20:33)
[2021-09-11] MEDS: cloNIDine 0.1MG TABLET PO SCH (20:33)
[2021-09-12 06:00] VITALS: BP 139/69
[2021-09-12] MEDS: diphenhydrAMINE 25MG CAP PO PRN ×2 (08:26→20:31)
[2021-09-12] MEDS: OLANZapine 10 MG TAB PO SCH (08:26)
[2021-09-12] MEDS: NICOTINE 21MG/24HR 1 EA TRANSDERMAL TD SCH (08:27)
[2021-09-12 16:17] VITALS: BP 159/93
[2021-09-12] MEDS: cloNIDine 0.1MG TABLET PO SCH (20:31)
[2021-09-12] MEDS: OLANZapine 5 MG TAB PO SCH (20:31)
[2021-09-12] MEDS: DIVALPROEX 250MG *ER* TAB PO SCH (20:32)
[2021-09-13 06:56] VITALS: BP 119/68
[2021-09-13] MEDS: OLANZapine 10 MG TAB PO SCH (08:31)
[2021-09-13] MEDS: diphenhydrAMINE 25MG CAP PO PRN ×2 (08:31→20:25)
[2021-09-13] MEDS: NICOTINE 21MG/24HR 1 EA TRANSDERMAL TD SCH (08:32)
[2021-09-13] MEDS: OLANZapine 5 MG TAB PO SCH (20:25)
[2021-09-13] MEDS: cloNIDine 0.1MG TABLET PO SCH (20:26)
[2021-09-13] MEDS: DIVALPROEX 250MG *ER* TAB PO SCH (21:00)
[2021-09-14] MEDS: NICOTINE 21MG/24HR 1 EA TRANSDERMAL TD SCH (09:00)
[2021-09-14] MEDS: diphenhydrAMINE 25MG CAP PO PRN ×2 (09:02→21:09)
[2021-09-14] MEDS: OLANZapine 10 MG TAB PO SCH (09:02)
[2021-09-14 18:05] VITALS: BP 148/90
[2021-09-14] MEDS: DIVALPROEX 250MG *ER* TAB PO SCH (21:00)
[2021-09-14] MEDS: OLANZapine 5 MG TAB PO SCH (21:11)
[2021-09-14] MEDS: cloNIDine 0.1MG TABLET PO SCH (21:11)
[2021-09-15] MEDS: NICOTINE 21MG/24HR 1 EA TRANSDERMAL TD SCH (09:00)
[2021-09-15] MEDS: diphenhydrAMINE 25MG CAP PO PRN ×2 (09:42→20:55)
[2021-09-15] MEDS: OLANZapine 10 MG TAB PO SCH (09:42)
[2021-09-15] MEDS: cloNIDine 0.1MG TABLET PO SCH (20:55)
[2021-09-15] MEDS: OLANZapine 5 MG TAB PO SCH (20:55)
[2021-09-15] MEDS: DIVALPROEX 250MG *ER* TAB PO SCH (20:57)
[2021-09-16] MEDS: NICOTINE 21MG/24HR 1 EA TRANSDERMAL TD SCH (09:00)
[2021-09-16] MEDS: OLANZapine 10 MG TAB PO SCH (10:36)
[2021-09-16] MEDS: diphenhydrAMINE 25MG CAP PO PRN ×2 (10:39→20:38)
[2021-09-16 15:18] VITALS: BP 138/84
[2021-09-16] MEDS: cloNIDine 0.1MG TABLET PO SCH (20:38)
[2021-09-16] MEDS: OLANZapine 5 MG TAB PO SCH (20:38)
[2021-09-16] MEDS: DIVALPROEX 250MG *ER* TAB PO SCH (20:40)
[2021-09-17] MEDS: NICOTINE 21MG/24HR 1 EA TRANSDERMAL TD SCH (09:00)
[2021-09-17] MEDS: OLANZapine 10 MG TAB PO SCH (09:40)
[2021-09-17] MEDS: diphenhydrAMINE 25MG CAP PO PRN ×2 (09:40→20:01)
[2021-09-17] MEDS: DIVALPROEX 250MG *ER* TAB PO SCH (19:59)
[2021-09-17] MEDS: OLANZapine 5 MG TAB PO SCH (20:02)
[2021-09-17] MEDS: cloNIDine 0.1MG TABLET PO SCH (20:22)
[2021-09-18] MEDS: NICOTINE 21MG/24HR 1 EA TRANSDERMAL TD SCH (09:00)
[2021-09-18] MEDS: OLANZapine 10 MG TAB PO SCH (09:26)
[2021-09-18] MEDS: diphenhydrAMINE 25MG CAP PO PRN ×2 (09:26→20:57)
[2021-09-18] MEDS: cloNIDine 0.1MG TABLET PO SCH (20:59)
[2021-09-18] MEDS: DIVALPROEX 250MG *ER* TAB PO SCH (21:00)
[2021-09-18] MEDS: OLANZapine 5 MG TAB PO SCH (21:00)
[2021-09-19] MEDS: NICOTINE 21MG/24HR 1 EA TRANSDERMAL TD SCH (09:00)
[2021-09-19] MEDS: OLANZapine 10 MG TAB PO SCH (09:41)
[2021-09-19] MEDS: diphenhydrAMINE 25MG CAP PO PRN ×2 (09:42→20:43)
[2021-09-19 18:33] VITALS: BP 120/78
[2021-09-19] MEDS: OLANZapine 5 MG TAB PO SCH (20:43)
[2021-09-19] MEDS: cloNIDine 0.1MG TABLET PO SCH (20:43)
[2021-09-19 20:44] VITALS: BP 120/78
[2021-09-19] MEDS: DIVALPROEX 250MG *ER* TAB PO SCH (20:45)
[2021-09-20] MEDS: NICOTINE 21MG/24HR 1 EA TRANSDERMAL TD SCH (09:00)
[2021-09-20] MEDS: OLANZapine 10 MG TAB PO SCH (09:36)
[2021-09-20] MEDS: diphenhydrAMINE 25MG CAP PO PRN (09:36)
[2021-09-20] MEDS ORDERED: OLAN15TA13 PO (09:46)
[2021-09-20] MEDS ORDERED: OLAN1TAB20 PO (09:46)
[2021-09-20] MEDS ORDERED: NICO21PAT TD (09:46)
== END 2021-09-20 13:10 | disposition home or self-care (01) | DRG 750 ==
LOC: M ED 05:12 → M ED INP 09-06 13:02 → M PSY 09-06 17:17
PROVIDERS: ADMIT Psychiatry & Neurology Psychiatry; ATTEND Student in an Organized Health Care Education/Training Program
DX: F25.0 Schizoaffective disorder, bipolar type (principal); F12.10 Cannabis abuse, uncomplicated; Z59.00 Homelessness unspecified; Z91.14 Patient's other noncompliance with medication regimen; I10 Essential (primary) hypertension; E03.9 Hypothyroidism, unspecified; F17.200 Nicotine dependence, unspecified, uncomplicated; Z20.822 Contact with and (suspected) exposure to COVID-19; Z79.899 Other long term (current) drug therapy; Z88.8 Allergy status to other drugs, medicaments and biological substances